=== PATIENT | female | born 1975 | race African-American/Black ===

== ENCOUNTER 2016-08-26 10:31 | Outpatient (CLI) | payer MEDICAID | END 2016-08-26 10:32 | disposition home or self-care (01) | DX: Z20.2 Contact with and (suspected) exposure to infections with a predominantly sexual mode of transmission (principal) ==

== ENCOUNTER 2016-09-17 14:45 | Emergency (ER) | payer MEDICAID ==
[2016-09-17] MEDS ORDERED: KETOROLAC 30 MG/ML VIAL ONE (16:09)
[2016-09-17] MEDS ORDERED: cefTRIAXone 1 GM in SODIUM CHLORIDE 0.9% MINIBAG 100 ML IV STA (20:23)
[2016-09-17] MEDS ORDERED: oxyCOD/ACETAMIN 5 MG/325 MG TABLET PO STA (20:23)
[2016-09-17] MEDS ORDERED: AZITHROMYCIN INJ 500 MG in SODIUM CHLORIDE 0.9% 250 ML IV STA (20:24)
[2016-09-17] MEDS ORDERED: DOXYCYCLINE 100 MG TABLET PO STA (20:25)
[2016-09-17] MEDS ORDERED: cefTRIAXone 1 GM VIAL ONE (20:31)
[2016-09-17] MEDS ORDERED: SODIUM CHLORIDE 0.9% MINIBAG 100 ML IV ONE (20:31)
[2016-09-17] MEDS ORDERED: oxyCOD/ACETAMIN 5 MG/325 MG TABLET PO ONE (20:31)
[2016-09-17] MEDS ORDERED: DOXYCYCLINE 100 MG TABLET PO ONE (20:31)
[2016-09-17] MEDS ORDERED: FLUCONAZOLE 100 MG TABLET PO STA (20:38)
[2016-09-17] MEDS ORDERED: FLUCONAZOLE 100 MG TABLET ONE ×2 (20:42→20:43)
== END 2016-09-17 21:23 | disposition home or self-care (01) ==
DX: N73.9 Female pelvic inflammatory disease, unspecified (principal); B37.3 Candidiasis of vulva and vagina
CPT/HCPCS: 36415; 76830; 76856; 80053; 81001; 81025; 83690; 85025; 87210; 87220; 87491; 87591; 93976; 96365; 99283; 99284; A9270

== ENCOUNTER 2017-10-19 08:00 | Outpatient (CLI) | payer MEDICAID ==
[2017-10-19 13:42] LABS: ALBUMIN 3.8 g/dL (3.2-5.5); ALBUMIN/GLOBULIN RATIO 1.1 (1.0-2.2); ALKALINE PHOSPHATASE 44 IU/L (42-121); ALT ALANINE AMINOTRANSFERASE 12 IU/L (10-60); AST ASPARTATE AMINOTRANSFERASE 17 IU/L (10-42); BILIRUBIN,TOTAL 0.5 mg/dL (0.2-1.0); BUN - BLOOD UREA NITROGEN 9 mg/dL (6-20); CALCIUM 8.7 mg/dL (8.5-10.3); CARBON DIOXIDE - CO2 23 mmol/L (21-32); CHLORIDE 106 mmol/L (101-111); CHOL/HDL RATIO 2.9 (<4.4); CHOLESTEROL 112 mg/dL; CREATININE 0.8 mg/dL (0.4-1.0); GFR - MDRD 96 (>89); GLUCOSE 144 mg/dL (70-100); HDL CHOLESTEROL 38 mg/dL; LDL CHOLESTEROL,CALCULATED 55 mg/dL; LDL/HDL RATIO 1.4 (<4.4); SODIUM 137 mmol/L (135-145); TOTAL PROTEIN 7.2 g/dL (6.7-8.2); VLDL CHOLESTEROL 19 mg/dL
[2017-10-19 13:43] LABS: BASOPHILS % (AUTO) 0.4 %; EOSINOPHILS # (AUTO) 0.2 10^3/uL (0.0-0.7); EOSINOPHILS % (AUTO) 1.8 %; HGB - HEMOGLOBIN 11.6 g/dL (12.0-16.0); LYMPHOCYTES # (AUTO) 2.6 10^3/uL (1.5-3.5); LYMPHOCYTES % (AUTO) 26.1 %; MEAN CORPUSCULAR HEMOGLOBIN 25.1 pg (27.0-31.0); MEAN CORPUSCULAR HGB CONC 32.5 g/dL (32.0-36.0); MEAN CORPUSCULAR VOLUME 77.1 fL (81.0-99.0); MEAN PLATELET VOLUME 9.2 fL (7.9-10.8); MONOCYTES # (AUTO) 0.4 10^3/uL (0.0-1.0); MONOCYTES % (AUTO) 4.5 %; NEUTROPHILS # (AUTO) 6.7 10^3/uL (1.5-6.6); NEUTROPHILS % (AUTO) 67.2 %; PLT - PLATELET COUNT 327 10^3/uL (130-450); RED BLOOD COUNT 4.62 10^6/uL (4.20-5.40); RED CELL DISTRIBUTION WIDTH 15.1 % (12.0-15.0); WHITE BLOOD COUNT 9.9 x10^3/uL (4.8-10.8)
== END 2017-10-19 08:01 | disposition home or self-care (01) ==
LOC: LAB.N 08:00
PROVIDERS: ATTEND Nurse Practitioner Gerontology
DX: Z13.9 Encounter for screening, unspecified (principal)
CPT/HCPCS: 36415; 80053; 80061; 83721; 84443; 85025

== ENCOUNTER 2017-10-27 09:40 | Outpatient (CLI) | payer MEDICAID ==
[2017-10-27 13:07] LABS: BASOPHILS # (AUTO) 0.1 10^3/uL (0.0-0.1); BASOPHILS % (AUTO) 0.5 %; EOSINOPHILS # (AUTO) 0.2 10^3/uL (0.0-0.7); EOSINOPHILS % (AUTO) 1.8 %; HGB - HEMOGLOBIN 11.8 g/dL (12.0-16.0); LYMPHOCYTES # (AUTO) 3.6 10^3/uL (1.5-3.5); LYMPHOCYTES % (AUTO) 35.6 %; MEAN CORPUSCULAR HGB CONC 32.3 g/dL (32.0-36.0); MEAN CORPUSCULAR VOLUME 77.6 fL (81.0-99.0); MEAN PLATELET VOLUME 8.9 fL (7.9-10.8); MONOCYTES # (AUTO) 0.4 10^3/uL (0.0-1.0); MONOCYTES % (AUTO) 4.3 %; NEUTROPHILS # (AUTO) 5.9 10^3/uL (1.5-6.6); NEUTROPHILS % (AUTO) 57.8 %; PLT - PLATELET COUNT 332 10^3/uL (130-450); RED BLOOD COUNT 4.71 10^6/uL (4.20-5.40); RED CELL DISTRIBUTION WIDTH 15.1 % (12.0-15.0); WHITE BLOOD COUNT 10.1 x10^3/uL (4.8-10.8)
[2017-10-27 13:32] LABS: ALBUMIN 3.8 g/dL (3.2-5.5); ALBUMIN/GLOBULIN RATIO 1.1 (1.0-2.2); ALKALINE PHOSPHATASE 43 IU/L (42-121); ALT ALANINE AMINOTRANSFERASE < 10 IU/L (10-60); AST ASPARTATE AMINOTRANSFERASE 15 IU/L (10-42); BILIRUBIN,TOTAL 0.4 mg/dL (0.2-1.0); BUN - BLOOD UREA NITROGEN 8 mg/dL (6-20); CALCIUM 8.6 mg/dL (8.5-10.3); CARBON DIOXIDE - CO2 24 mmol/L (21-32); CHLORIDE 104 mmol/L (101-111); CHOL/HDL RATIO 2.7 (<4.4); CHOLESTEROL 112 mg/dL; CREATININE 0.9 mg/dL (0.4-1.0); GFR - MDRD 84 (>89); GLUCOSE 119 mg/dL (70-100); HDL CHOLESTEROL 41 mg/dL; LDL CHOLESTEROL,CALCULATED 51 mg/dL; LDL/HDL RATIO 1.2 (<4.4); SODIUM 135 mmol/L (135-145); TOTAL PROTEIN 7.2 g/dL (6.7-8.2); VLDL CHOLESTEROL 20 mg/dL
[2017-10-27 13:53] LABS: HB2 TOTAL 12.6 g/dL; HEMOGLOBIN A1C 0.55 g/dL; HEMOGLOBIN A1C % 6.1 % (4.6-6.2)
== END 2017-10-27 09:41 | disposition home or self-care (01) ==
LOC: LAB.N 09:40
PROVIDERS: ATTEND Nurse Practitioner Gerontology
DX: Z13.9 Encounter for screening, unspecified (principal); R73.9 Hyperglycemia, unspecified
CPT/HCPCS: 36415; 80053; 80061; 83036; 83721; 84443; 85025

== ENCOUNTER 2017-11-03 10:22 | Outpatient (CLI) | payer MEDICAID ==
--- NOTE | 2017-11-06 16:08 | Mammography Report ---
DIGITAL SCREENING MAMMOGRAM: 11/03/2017 CLINICAL INDICATION: A 42-year-old, for screening. This is the patient's baseline examination. TECHNIQUE: Routine CC and MLO projections were obtained of the breasts. FINDINGS: The breasts demonstrate scattered fibroglandular densities bilaterally. A few punctate, typically benign calcifications are present. No suspicious masses, clustered microcalcifications, or regions of architectural distortion are identified. IMPRESSION: BENIGN FINDINGS. RECOMMENDATION: ROUTINE ANNUAL SCREENING UNLESS OTHERWISE CLINICALLY INDICATED. BIRADS CATEGORY 2-BENIGN FINDINGS. STANDARD QUALIFYING STATEMENTS: 1. This examination was reviewed with the aid of Computer-Aided Detection (CAD). 2. A negative or benign imaging report should not delay biopsy if clinically suspicious findings are present. Consider surgical consultation if warranted. More than 5% of cancers are not identified by imaging. 3. Dense breasts may obscure an underlying neoplasm. TD: 11/06/2017 16:07
== END 2017-11-03 10:23 | disposition home or self-care (01) ==
LOC: DI.N 10:22
PROVIDERS: ATTEND Nurse Practitioner Gerontology
DX: Z12.39 Encounter for other screening for malignant neoplasm of breast (principal)
CPT/HCPCS: 77067

== ENCOUNTER 2018-03-20 08:00 | Outpatient (CLI) | payer MEDICAID ==
[2018-03-20 12:49] LABS: BASOPHILS % (AUTO) 0.3 %; EOSINOPHILS # (AUTO) 0.1 10^3/uL (0.0-0.7); EOSINOPHILS % (AUTO) 0.9 %; LYMPHOCYTES # (AUTO) 3.4 10^3/uL (1.5-3.5); LYMPHOCYTES % (AUTO) 28.9 %; MEAN CORPUSCULAR HEMOGLOBIN 25.5 pg (27.0-31.0); MEAN CORPUSCULAR VOLUME 79.7 fL (81.0-99.0); MONOCYTES # (AUTO) 0.5 10^3/uL (0.0-1.0); MONOCYTES % (AUTO) 4.6 %; NEUTROPHILS # (AUTO) 7.6 10^3/uL (1.5-6.6); NEUTROPHILS % (AUTO) 65.3 %; PLT - PLATELET COUNT 341 10^3/uL (130-450); RED BLOOD COUNT 4.69 10^6/uL (4.20-5.40); RED CELL DISTRIBUTION WIDTH 14.7 % (12.0-15.0); WHITE BLOOD COUNT 11.7 x10^3/uL (4.8-10.8)
== END 2018-03-20 08:01 | disposition home or self-care (01) ==
LOC: LAB.N 08:00
PROVIDERS: ATTEND Nurse Practitioner Gerontology
DX: N92.5 Other specified irregular menstruation (principal)
CPT/HCPCS: 36415; 85025

== ENCOUNTER 2018-05-04 18:55 | Outpatient (CLI) | payer MEDICAID ==
[2018-05-04 13:36] LABS: BASOPHILS % (AUTO) 0.4 %; EOSINOPHILS # (AUTO) 0.1 10^3/uL (0.0-0.7); EOSINOPHILS % (AUTO) 0.9 %; HGB - HEMOGLOBIN 12.2 g/dL (12.0-16.0); LYMPHOCYTES # (AUTO) 3.2 10^3/uL (1.5-3.5); LYMPHOCYTES % (AUTO) 31.7 %; MEAN CORPUSCULAR HEMOGLOBIN 25.8 pg (27.0-31.0); MEAN CORPUSCULAR HGB CONC 32.7 g/dL (32.0-36.0); MEAN CORPUSCULAR VOLUME 78.9 fL (81.0-99.0); MEAN PLATELET VOLUME 8.6 fL (7.9-10.8); MONOCYTES # (AUTO) 0.3 10^3/uL (0.0-1.0); MONOCYTES % (AUTO) 3.4 %; NEUTROPHILS # (AUTO) 6.4 10^3/uL (1.5-6.6); NEUTROPHILS % (AUTO) 63.6 %; PLT - PLATELET COUNT 349 10^3/uL (130-450); RED BLOOD COUNT 4.73 10^6/uL (4.20-5.40); RED CELL DISTRIBUTION WIDTH 15.1 % (12.0-15.0)
--- NOTE | 2018-05-04 23:07 | Ultrasound Report ---
Reason: GENERALIZED INTRA ABD AND PELVIC SWELLING,MASS AND Procedure Date: 05/04/2018 Accession Number: [id number] / [id number] Procedure: US - Pelvic w/Transvaginal CPT Code: FULL RESULT: EXAM: PELVIC ULTRASOUND EXAM DATE: 05/04/2018 08:51 PM. CLINICAL HISTORY: Generalized intra-abdominal and pelvic swelling, mass. COMPARISON: None. TECHNIQUE: Realtime transabdominal pelvic scan performed to identify the uterus and adnexa and as an overview of other pelvic structures, followed by transvaginal scan to provide greater detail of the uterus and adnexa, with static image documentation. FINDINGS: Uterus: 12.7 x 6.5 x 4.6 cm, volume 197.5 cc. Anteverted position. Normal overall size and echotexture. Masses: None. Endometrium: 10 mm. Normal. Cervix: Unremarkable. Right Ovary: 3.4 x 1.8 x 1.9 cm, volume 6.04 cc. Normal echotexture and blood flow. Left Ovary: 2.9 x 2 x 1.4 cm, volume 4.22 cc. Normal echotexture and blood flow. Free Fluid: Small volume of pelvic fluid considered physiologic. Other: None. IMPRESSION: Normal pelvic ultrasound. RADIA
== END 2018-05-04 18:56 | disposition home or self-care (01) ==
LOC: DI 18:55
PROVIDERS: ATTEND Obstetrics & Gynecology
DX: R19.07 Generalized intra-abdominal and pelvic swelling, mass and lump (principal); N92.0 Excessive and frequent menstruation with regular cycle; D64.9 Anemia, unspecified
CPT/HCPCS: 36415; 76830; 76856; 84443; 85025

== ENCOUNTER 2018-05-08 17:35 | Outpatient (CLI) | payer MEDICAID | END 2018-05-08 17:36 | disposition home or self-care (01) | LOC: LAB.R 17:35 | PROVIDERS: ATTEND Obstetrics & Gynecology | DX: N71.0 Acute inflammatory disease of uterus (principal) | CPT/HCPCS: 87480; 87510; 87660 ==

== ENCOUNTER 2018-07-20 08:00 | Outpatient (CLI) | payer MEDICAID ==
[2018-07-21 10:56] LABS: HEPATITIS C ANTIBODY NON-REACTIVE (NON-REACTIVE)
[2018-07-23 09:12] LABS: HIV AG/AB 4TH GEN NON-REACTIVE (NON-REACTIVE)
[2018-07-24 13:17] LABS: HSV 1 IGG TYPE SPECIFIC AB 20.8 index; HSV 2 IGG TYPE SPECIFIC AB 13.5 index
== END 2018-07-20 23:59 | disposition home or self-care (01) ==
LOC: LAB.N 08:00
PROVIDERS: ATTEND Nurse Practitioner
DX: Z72.51 High risk heterosexual behavior (principal); R30.0 Dysuria; R31.9 Hematuria, unspecified
CPT/HCPCS: 36415; 81599; 86592; 86695; 86696; 86803; 87086; 87389; 87491; 87591

== ENCOUNTER 2018-08-10 11:57 | Outpatient (CLI) | payer MEDICAID ==
[2018-08-10 17:19] LABS: BASOPHILS % (AUTO) 0.5 %; EOSINOPHILS # (AUTO) 0.1 10^3/uL (0.0-0.7); EOSINOPHILS % (AUTO) 1.2 %; HGB - HEMOGLOBIN 12.6 g/dL (12.0-16.0); LYMPHOCYTES # (AUTO) 2.7 10^3/uL (1.5-3.5); LYMPHOCYTES % (AUTO) 29.4 %; MEAN CORPUSCULAR HEMOGLOBIN 25.7 pg (27.0-31.0); MEAN CORPUSCULAR HGB CONC 31.8 g/dL (32.0-36.0); MEAN CORPUSCULAR VOLUME 80.8 fL (81.0-99.0); MEAN PLATELET VOLUME 9.1 fL (7.9-10.8); MONOCYTES # (AUTO) 0.5 10^3/uL (0.0-1.0); MONOCYTES % (AUTO) 4.9 %; NEUTROPHILS # (AUTO) 5.9 10^3/uL (1.5-6.6); PLT - PLATELET COUNT 334 10^3/uL (130-450); RED CELL DISTRIBUTION WIDTH 14.3 % (12.0-15.0); WHITE BLOOD COUNT 9.2 x10^3/uL (4.8-10.8)
[2018-08-10 17:27] LABS: ALBUMIN 3.7 g/dL (3.2-5.5); BILIRUBIN,TOTAL 0.5 mg/dL (0.2-1.0); CALCIUM 8.7 mg/dL (8.5-10.3); CREATININE 0.8 mg/dL (0.4-1.0); TOTAL PROTEIN 7.4 g/dL (6.7-8.2)
[2018-08-10 17:49] LABS: HB2 TOTAL 13.2 g/dL; HEMOGLOBIN A1C 0.62 g/dL; HEMOGLOBIN A1C % 6.4 % (4.6-6.2)
== END 2018-08-10 23:59 | disposition home or self-care (01) ==
LOC: LAB.N 11:57
PROVIDERS: ATTEND Nurse Practitioner Gerontology
DX: I10 Essential (primary) hypertension (principal); Z13.9 Encounter for screening, unspecified; R89.9 Unspecified abnormal finding in specimens from other organs, systems and tissues; R73.9 Hyperglycemia, unspecified
CPT/HCPCS: 36415; 80053; 83036; 85025

== ENCOUNTER 2018-11-15 08:00 | Outpatient (CLI) | payer MEDICAID ==
[2018-11-15 13:41] LABS: HB2 TOTAL 12.6 g/dL; HEMOGLOBIN A1C 0.62 g/dL; HEMOGLOBIN A1C % 6.7 % (4.6-6.2)
== END 2018-11-15 23:59 | disposition home or self-care (01) ==
LOC: LAB.N 08:00
PROVIDERS: ATTEND Nurse Practitioner Gerontology
DX: E11.9 Type 2 diabetes mellitus without complications (principal)
CPT/HCPCS: 36415; 83036

== ENCOUNTER 2019-01-17 17:36 | Emergency (ER) | payer MEDICAID ==
[2019-01-17] MEDS ORDERED: IPRATROPIUM/ALBUTEROL 3 ML NEB INH STA (19:30)
--- NOTE | 2019-01-17 20:06 | ED Physician Documentation ---
History of Present Illness - Stated complaint Stated Complaint: SOA/ASHTMA - Chief complaint Chief Complaint: Resp - History obtained from History obtained from: Patient - Additonal information Additional information: Patient is a 43-year-old female with history of asthma presenting with concern for chest tightness and difficulty breathing over the past several days. Patient saw her primary care physician yesterday and was prescribed nebulizers, inhalers, and steroids, which she has been taking compliantly. Patient reports he general chest congestion, dry cough, wheezing, and tightness in her chest. Patient denies fever, nasal congestion or other URI symptoms, leg pain or swelling.No other improving or worsening factors noted. Review of Systems Constitutional: denies: Fever Respiratory: reports: Dyspnea, Cough PD PAST MEDICAL HISTORY - Past Medical History Past Medical History: Yes Respiratory: Asthma Endocrine/Autoimmune: Type 2 diabetes - Past Surgical History Past Surgical History: No - Present Medications Home Medications: Ambulatory Orders Medication Instructions Recorded Confirmed Albuterol [Ventolin Hfa] 2 puffs INH Q4H PRN 07/03/13 01/17/19 RX: predniSONE [Deltasone] 60 mg PO DAILY 5 Days tablet 11/12/14 01/17/19 - Allergies Allergies/Adverse Reactions: Allergies Allergy/AdvReac Type Severity Reaction Status Date / Time No Known Drug Allergies Allergy Verified 01/17/19 17:53 - Social History Does the pt smoke?: No Smoking Status: Never smoker Does the pt drink ETOH?: Yes Does the pt have substance abuse?: No - Immunizations Immunizations are current?: Yes - POLST Patient has POLST: No PD ED PE NORMAL - Vitals Vital signs reviewed: Yes - General General: Alert and oriented X 3, No acute distress, Well developed/nourished, Other (Speaking in full sentences) - HEENT HEENT: Atraumatic, Moist mucous membranes - Cardiac Cardiac: RRR, No murmur - Respiratory Respiratory: No respiratory distress, Clear bilaterally - Abdomen Abdomen: Normal bowel sounds, Soft, Non tender, Non distended - Derm Derm: Normal color, Warm and dry, No rash - Extremities Extremities: No deformity, No tenderness to palpate, No edema, No calf tenderness / cord - Neuro Neuro: Alert and oriented X 3, No motor deficit, No sensory deficit - Psych Psych: Normal mood, Normal affect Results - Vitals Vitals: Vital Signs - 24 hr 01/17/19 01/17/19 01/17/19 17:45 19:45 20:41 Temperature 36.7 C 36.4 C L Heart Rate 87 89 92 Respiratory 18 24 20 Rate Blood Pressure 142/77 H 146/105 H O2 Saturation 100 99 01/17/19 20:55 Temperature 37.0 C Heart Rate 90 Respiratory 12 Rate Blood Pressure 147/82 H O2 Saturation 99 Oxygen O2 Source Room air - EKG (time done) 2037 Rate: Rate (enter#) (89) Intervals: Prolonged [place] Ischemia: ST elevation c/w repol PD MEDICAL DECISION MAKING - ED course Complexity details: reviewed results, considered differential, d/w patient ED course: Most concerning for asthma flare given patient's history of such, symptoms, and physical exam findings. Patient has Miguel seen a physician and been prescribed appropriate medications including nebulizers, inhalers, and steroids. Do not find evidence to indicate other complications but considered pneumonia, ACS, current infarction, unstable angina, PE, GERD, esophageal spasm, anxiety, but feel less likely. EKG obtained which not show evidence of ischemia. Also discussed obtaining chest x-ray to further evaluate for possible pneumonia or other complications, but patient declined. Patient received DuoNeb in ED with improvement of symptoms. Do not feel she requires other medications or invasive testing at this time. Feel that she is safe to discharge home and has all medications available to her there. Discussed strict return precautions and appropriate follow-up. Patient voiced understanding and is comfortable with discharge plan. Departure - Departure Disposition: 01 Home, Self Care Clinical Impression: Asthma Condition: Good Instructions: ED Reactive Airway Disease, ED Bronchitis Asthmatic Follow-Up: Christen Cloud ARNP [Primary Care Provider] - Within 3 Days Comments: Please continue to use all home medications as previously instructed including nebulizers, inhalers, and steroids. For discomfort, recommend ibuprofen or Tylenol. Please follow-up with your primary care physician in the next 2 to 3 days and return to ED sooner if experience worsening symptoms or other concerns. Discharge Date/Time: 01/17/19 21:03
[2019-01-17 20:56] VITALS: BP 147/82
== END 2019-01-17 21:03 | disposition home or self-care (01) ==
LOC: ED 17:36
DX: J45.909 Unspecified asthma, uncomplicated (principal); I44.0 Atrioventricular block, first degree; E11.9 Type 2 diabetes mellitus without complications
CPT/HCPCS: 93005; 94640; 94664; 99283

== ENCOUNTER 2019-03-04 08:00 | Outpatient (CLI) | payer MEDICAID ==
[2019-03-04 18:46] LABS: BASOPHILS # (AUTO) 0.1 10^3/uL (0.0-0.1); BASOPHILS % (AUTO) 0.4 %; EOSINOPHILS # (AUTO) 0.2 10^3/uL (0.0-0.7); EOSINOPHILS % (AUTO) 1.4 %; HGB - HEMOGLOBIN 11.6 g/dL (12.0-16.0); LYMPHOCYTES # (AUTO) 3.6 10^3/uL (1.5-3.5); LYMPHOCYTES % (AUTO) 28.8 %; MEAN CORPUSCULAR HEMOGLOBIN 25.3 pg (27.0-31.0); MEAN CORPUSCULAR HGB CONC 31.6 g/dL (32.0-36.0); MEAN CORPUSCULAR VOLUME 80.1 fL (81.0-99.0); MONOCYTES # (AUTO) 0.6 10^3/uL (0.0-1.0); MONOCYTES % (AUTO) 4.5 %; NEUTROPHILS # (AUTO) 8.1 10^3/uL (1.5-6.6); NEUTROPHILS % (AUTO) 63.9 %; PLT - PLATELET COUNT 372 10^3/uL (130-450); RED BLOOD COUNT 4.58 10^6/uL (4.20-5.40); RED CELL DISTRIBUTION WIDTH 14.5 % (12.0-15.0); WHITE BLOOD COUNT 12.6 x10^3/uL (4.8-10.8)
== END 2019-03-04 23:59 | disposition home or self-care (01) ==
LOC: LAB.N 08:00
PROVIDERS: ATTEND Nurse Practitioner Gerontology
DX: D64.9 Anemia, unspecified (principal)
CPT/HCPCS: 36415; 85025

== ENCOUNTER 2019-11-01 08:27 | Outpatient (CLI) | payer MEDICAID ==
[2019-11-01 12:26] LABS: BASOPHILS # (AUTO) 0.1 10^3/uL (0.0-0.1); BASOPHILS % (AUTO) 0.4 %; EOSINOPHILS # (AUTO) 0.2 10^3/uL (0.0-0.7); EOSINOPHILS % (AUTO) 1.9 %; HGB - HEMOGLOBIN 11.4 g/dL (12.0-16.0); LYMPHOCYTES # (AUTO) 3.3 10^3/uL (1.5-3.5); LYMPHOCYTES % (AUTO) 27.6 %; MEAN CORPUSCULAR HGB CONC 31.1 g/dL (32.0-36.0); MEAN CORPUSCULAR VOLUME 80.5 fL (81.0-99.0); MEAN PLATELET VOLUME 10.9 fL (7.9-10.8); MONOCYTES # (AUTO) 0.5 10^3/uL (0.0-1.0); MONOCYTES % (AUTO) 4.5 %; NEUTROPHILS # (AUTO) 7.7 10^3/uL (1.5-6.6); PLT - PLATELET COUNT 402 10^3/uL (130-450); RED BLOOD COUNT 4.56 10^6/uL (4.20-5.40); RED CELL DISTRIBUTION WIDTH 15.1 % (12.0-15.0); WHITE BLOOD COUNT 11.8 x10^3/uL (4.8-10.8)
[2019-11-01 12:49] LABS: ALBUMIN 3.7 g/dL (3.2-5.5); BILIRUBIN,TOTAL 0.3 mg/dL (0.2-1.0); CALCIUM 8.7 mg/dL (8.5-10.3); CREATININE 0.7 mg/dL (0.4-1.0); TOTAL PROTEIN 7.4 g/dL (6.7-8.2)
[2019-11-01 13:17] LABS: HB2 TOTAL 11.7 g/dL; HEMOGLOBIN A1C 0.67 g/dL; HEMOGLOBIN A1C % 7.4 % (4.6-6.2)
== END 2019-11-01 23:59 | disposition home or self-care (01) ==
LOC: LAB.N 08:27
PROVIDERS: ATTEND Nurse Practitioner Gerontology
DX: D64.9 Anemia, unspecified (principal); E11.9 Type 2 diabetes mellitus without complications
CPT/HCPCS: 36415; 80053; 83036; 85025

== ENCOUNTER 2019-12-23 14:03 | Outpatient (CLI) | payer MEDICAID ==
--- NOTE | 2019-12-23 19:29 | Ultrasound Report ---
Reason: DUB/HEAVY MENTRUATION Procedure Date: 12/23/2019 Accession Number: [id number] / [id number] Procedure: US - Pelvic w/Transvaginal CPT Code: Final Report FULL RESULT: EXAM: PELVIC ULTRASOUND EXAM DATE: 12/23/2019 02:50 PM. CLINICAL HISTORY: Dysfunctional uterine bleeding, heavy menstruation. COMPARISON: PELVIC W/TRANSVAGINAL 05/04/2018 8:12 PM. TECHNIQUE: Realtime transabdominal pelvic scan performed to identify the uterus and adnexa and as an overview of other pelvic structures, followed by transvaginal scan to provide greater detail of the uterus and adnexa, with static image documentation. FINDINGS: Uterus: 10.1 x 6.3 x 5.5 cm, volume 186 cc. Anteverted position. Normal overall size and echotexture. Masses: Anterior intramural poorly defined fibroid 2.7 x 3.0 x 3.3 cm. Endometrium: 7 mm. Normal. Cervix: Unremarkable. Right Ovary: 3.6 x 1.7 x 3.3 cm, volume 10.4 cc. Normal echotexture and blood flow. Left Ovary: 2.9 x 1.2 x 2.5 cm, volume 4.4 cc. Normal echotexture and blood flow. Free Fluid: None. Other: None. IMPRESSION: 1. No endometrial mass or thickening. 2. 3.3 cm intramural fibroid. RADIA
== END 2019-12-23 14:04 | disposition home or self-care (01) ==
LOC: DI 14:03
PROVIDERS: ATTEND Obstetrics & Gynecology
DX: D25.1 Intramural leiomyoma of uterus (principal)
CPT/HCPCS: 76830; 76856

== ENCOUNTER 2020-02-17 09:07 | Outpatient (CLI) | payer MEDICAID ==
[2020-02-17 10:48] LABS: BASOPHILS # (AUTO) 0.1 10^3/uL (0.0-0.1); BASOPHILS % (AUTO) 0.4 %; EOSINOPHILS # (AUTO) 0.3 10^3/uL (0.0-0.7); EOSINOPHILS % (AUTO) 2.2 %; HGB - HEMOGLOBIN 11.4 g/dL (12.0-16.0); LYMPHOCYTES % (AUTO) 34.4 %; MEAN CORPUSCULAR HGB CONC 31.2 g/dL (32.0-36.0); MEAN PLATELET VOLUME 10.9 fL (7.9-10.8); MONOCYTES # (AUTO) 0.7 10^3/uL (0.0-1.0); MONOCYTES % (AUTO) 5.7 %; NEUTROPHILS # (AUTO) 6.6 10^3/uL (1.5-6.6); NEUTROPHILS % (AUTO) 56.8 %; PLT - PLATELET COUNT 393 10^3/uL (130-450); RED BLOOD COUNT 4.56 10^6/uL (4.20-5.40); RED CELL DISTRIBUTION WIDTH 15.4 % (12.0-15.0); WHITE BLOOD COUNT 11.7 x10^3/uL (4.8-10.8)
== END 2020-02-17 09:08 | disposition home or self-care (01) ==
LOC: LAB 09:07
PROVIDERS: ATTEND Obstetrics & Gynecology
DX: Z01.812 Encounter for preprocedural laboratory examination (principal); N92.0 Excessive and frequent menstruation with regular cycle; N93.8 Other specified abnormal uterine and vaginal bleeding; Z20.828 Contact with and (suspected) exposure to other viral communicable diseases
CPT/HCPCS: 81599; 85025

== ENCOUNTER 2020-02-19 07:31 | Day surgery (SDC) | payer MEDICAID ==
[~2020-02-19 07:31] MED LIST: ACETAMINOPHEN 1,000 MG/100 ML 100 ML IV ONE; CELECOXIB 100 MG CAPSULE PO ONE; GABAPENTIN 400 MG CAPSULE ONE
[2020-02-19 07:54] LABS: HCG UR QUAL NEGATIVE
[2020-02-19] MEDS ORDERED: LACTATED RINGERS 1,000 ML IV ONE ×2 (08:02→10:42)
--- NOTE | 2020-02-19 08:11 | ANESTHESIA ---
Pre-Anesthesia VS, & Labs - Diagnosis dysfunctional uterine bleeding - Procedure hysteroscopy, d and c, IUD placement Vital Signs: Temp Pulse Resp BP Pulse Ox 36.4 C L 76 16 143/94 H 100 02/19/20 07:49 02/19/20 07:49 02/19/20 07:49 02/19/20 07:49 02/19/20 07:49 Height 5 ft 1 in Weight (kg) 92.4 kg Body Mass Index 37.6 - NPO >8 hours - Is Patient ?: No - Lab Results Current Lab Results: Laboratory Tests 02/19/20 07:56: POC Whole Bld Glucose 166 H Home Medications and Allergies Home Medications: Ambulatory Orders Lisinopril [Zestril] 10 mg PO DAILY 02/17/20 Metformin HCl 1,000 mg PO BID 02/17/20 Albuterol [Ventolin Hfa] 2 puffs INH Q4H PRN 07/03/13 Lisinopril [Zestril] 10 mg PO DAILY 02/17/20 Metformin HCl 1,000 mg PO BID 02/17/20 Allergies/Adverse Reactions: Allergies Allergy/AdvReac Type Severity Reaction Status Date / Time No Known Drug Allergies Allergy Verified 01/17/19 17:53 Anes History & Medical History - Anesthetic History Anesthesia Complications: reports: No previous complications, Slow wake-up - Medical History Cardiovascular: reports: Hypertension Pulmonary: reports: Asthma Gastrointestinal: reports: GERD Urinary: reports: None Musculoskeletal: reports: None Endocrine/Autoimmune: reports: Type 2 diabetes Skin: reports: Eczema Smoking Status: Never smoker - Surgical History Gynecologic: Tubal ligation Exam General: Alert Dental: WNL Mouth Opening: Greater than 4 Fingerbreadths Neck Mobility: Normal Mallampati classification: I Respiratory: Lungs clear Cardiovascular: Regular rate Mental/Cognitive Status: Alert/Oriented X3 Plan Anesthesia Type: General Consent for Procedure(s) Verified and Reviewed: Yes Code Status: Attempt Resuscitation ASA classification: 2-Mild systemic disease Is this case an emergency?: No
[2020-02-19] MEDS ORDERED: LIDOCAINE 1%-EPI 1:100000 20 ML MDV ONE (08:53)
[2020-02-19] MEDS ORDERED: LEVONORGESTREL 20 MCG/24H IUD IY ONE ×2 (08:57→09:51)
[2020-02-19] MEDS ORDERED: SILVER NITRATE APPLICATOR TOP ONE (09:51)
[2020-02-19] MEDS ORDERED: LIDOCAINE 1%-EPI 1:100000 20 ML MDV SUBQ ONE (09:52)
--- NOTE | 2020-02-19 10:12 | HISTORY & PHYSICAL EXAMINATION ---
HPI - History of Present Illness HPI Comment/Other: Patient is a 44-year-old G6, P4 Last seen on 12/16/2019 for dysfunctional uterine bleeding. Please see prior clinic notes for details of bleeding history. She has tried norethindrone which only served to lengthen her episodes of bleeding. She was interested in an endometrial ablation. We discussed various risk factors and determined that she had a poor risk profile for endometrial ablation. She underwent a pelvic ultrasound which showed a poorly defined intramural fibroid. She wants to discuss next steps. At her prior visit we started medroxyprogesterone. She found that it spiked her blood sugar and she felt terrible. 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 She had 9 days of flow followed with an additional 15 to 16 days of flow. She is due for her mammogram. Her last Pap smear was 10/19/2017 and was within normal limits. Allergies: No Known Allergies Medications: TRUE METRIX BLOOD GLUCOSE TEST IN VITRO STRIP (GLUCOSE BLOOD) Check blood sugars 4 times a day; Route: IN VITRO TRUE METRIX GO GLUCOSE METER W/DEVICE KIT (BLOOD GLUCOSE MONITORING SUPPL) Check blood sugars 4 times a day LISINOPRIL 10 MG ORAL TABLET (LISINOPRIL) Take one tablet by mouth daily; Route: ORAL FLOVENT HFA 44 MCG/ACT INHALATION AEROSOL (FLUTICASONE PROPIONATE HFA) Inhale two actuations twice daily; Route: INHALATION PROAIR HFA 108 (90 BASE) MCG/ACT INHALATION AEROSOL SOLUTION (ALBUTEROL SULFATE) 2 puffs orally up to every 4 hrs as needed for wheezing; Route: INHALATION METFORMIN HCL 1000 MG ORAL TABLET (METFORMIN HCL) Take one tablet by mouth twice daily for diabetes; Route: ORAL TRIAMCINOLONE ACETONIDE 0.1 % EXTERNAL CREAM (TRIAMCINOLONE ACETONIDE) Apply sparingly to affected areas twice daily; Route: EXTERNAL Problems: Review of test results (ICD-V68.89) (WFJ19-O09.89) Elevated blood pressure (ICD-796.2) (FYO14-M93.0) Mammographic screening for breast cancer (ICD-V76.12) (ZAK69-A28.31) DUB (ICD-626.8) (OSW58-Y92.8) Headaches (ICD-784.0) (APD58-X48) Heavy menstruation (ICD-626.2) (YYK21-Z45.0) Foot anomaly (ICD-755.67) (ZHK77-A09.89) Anemia (ICD-285.9) (TMD17-N00.9) Asthma, chronic (ICD-493.90) (PKI20-T55.998) Asthma exacerbation (ICD-493.92) (PHT61-G00.901) Cough (ICD-786.2) (CBX96-Z90) Abdominal pain, lower (ICD-789.09) (PVA16-Y18.30) Viral illness, acute (ICD-079.99) (JPU68-C34.9) Shingles (ICD-053.9) (NZV95-X93.9) Diabetes mellitus, type 2 (ICD-250.00) (JFB88-N06.9) Rash (ICD-782.1) (LLD20-I27) Fever of unknown origin (ICD-780.60) (KOU01-N46.9) Hypertension (ICD-401.9) (RMH18-P76) Health screening (ICD-V70.0) (YZL44-V96.9) UTI, acute (ICD-599.0) (PEM60-Z76.0) Hematuria (ICD-599.70) (BBJ17-Z03.9) Mammographic screening for breast cancer (ICD-V76.12) (NRJ64-C47.31) Upper respiratory tract infection (ICD-465.9) (AZB54-E57.9) Abnormal labs (ICD-790.99) (EGS75-M16.9) Other specified irregular menstruation (CLN13-H33.5) Encounter for gynecological examination (general) (routine) with abnormal findings (ICD-V72.31) (CRV54-Z86.411) Elevated blood glucose (ICD-790.29) (HJH75-A24.9) Screening for cervical cancer (ICD-V76.2) (HWG08-Z68.4) Dizziness (ICD-780.4) (TWZ84-N90) Health screening (ICD-V70.0) (AZC49-F83.9) Bacterial vaginosis (ICD-616.10) (FXP79-S75.0) Vaginal bleeding, abnormal (ICD-626.9) (GLX82-E25.9) Exposure to STD (ICD-V01.6) (EBD06-K97.2) Risk Factors: Smoked Tobacco Use: Never smoker Smokeless Tobacco Use: Never Passive Smoke Exposure: no HIV High Risk Behavior: no Caffeine Use: 0 drinks per day Exercise: yes Times/wk: 3 Type of Exercise: walking Seatbelt Use: 100 % Sun Exposure: occasionally Alcohol Use: no Drug Use: no Vital Signs: Patient Profile: 44 Years Old Female Height: 62 inches Weight: 205 pounds BMI: 37.63 BP sittin / 81 Cuff size: regular Vitals Entered By: PRIYA Quintero (January 09, 2020 2:34 PM) Meds Reviewed: Done Allergies Reviewed: Done No known allergies: T Past Medical History: Diabetes BMI 38 Asthma heavy abnormal menses Past Surgical History: Tubal ligation 2007 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 Physical Constitutional: GEN: NAD HEAD: NCAT EYES: No scleral icterus or conjunctival injection NECK: No cervical LAD or TM CV: RRR RESP: CTAB, normal effort ABD: S&NT/ND PSYCH: appropriate affect NEURO: alert and oriented, normal gait and coordination EXT: WWP Impression & Recommendations: Problem # 1: DUB (ICD-626.8) (ILP59-R51.8) Patient is a 44-year-old here for follow-up of dysfunctional uterine bleeding. Patient has not tolerated medical management with norethindrone or medroxyprogesterone. We have previously discussed the possibility of endometrial ablation but given her Elevated BMI, hypertension, and diabetes, she is a poor candidate for endometrial ablation given her underlying risk of endometrial hyperplasia. We discussed the possibility of definitive management with hysterectomy. She does not feel that she is ready for a major surgical procedure at this time. We will proceed with hysteroscopy, D&C and possible myomectomy/polypectomy with Mirena IUD insertion. Reviewed risks/benefits/alternatives to hysteroscopy/polpectomy nad IUD insertion Risks include, but are not limited to, bleeding, infection, damage to neatby tissue and organs. On average, expected EBL is minimal. In the event of an unanticipated blood loss, patient is willing to undergo transfusion. Risks of blood transfusion include infection as well as transfusion reaction Risk of HIV 1/2million nationwide Risk of Hepatitis 1/1 million Risks of transfusion reaction and mgt reviewed Infection risk low given that no incisions maykel be made and we will be using physiologic orifices. Will provide IV abx in the event of uterine perforation. Damage to nearby tissue and organs was reviewed with emphasis on uterine perforation and management, which can include surgical intervention based on bleeding risk. Reviewed management of complications and efforts to avoid such outcomes but reviewed that they may occur despite our best efforts. Patient is undergone bilateral tubal ligation, so risks of ectopic are less of a concern.Uterine perforation and persistent dysfunctional uterine and/or nuisance bleeding after placement persist as risks. Written informed consent was obtained and OR request was submitted. This visit lasted at least 25 minutes with greater than 50% of the This visit lasted at least 25 minutes with greater than 50% of the time devoted to face to face case management discussion between the provider and the natividad PMH/PSH - Past Medical History Cardiovascular: positive: Hypertension Respiratory: positive: Asthma Endocrine/Autoimmune: positive: Type 2 diabetes GI: positive: GERD : positive: None HEENT: positive: None Psych: positive: Panic attacks, Post traumatic stress disorder, Claustrophobia Musculoskeletal: positive: None Derm: positive: Eczema MRSA Hx?: No - Past Surgical History /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: Tubal ligation Social & Family Hx - Social History Does the pt smoke?: No Smoking Status: Never smoker Does the pt drink ETOH?: Yes Does the pt have substance abuse?: No Substance Use and Type: Marijuana - POLST Patient has POLST: No Meds/Allgy - Home Medications Home Medications: Ambulatory Orders Medication Instructions Recorded Confirmed Albuterol [Ventolin Hfa] 2 puffs INH Q4H PRN 07/03/13 02/19/20 Lisinopril [Zestril] 10 mg PO DAILY 02/17/20 02/19/20 Metformin HCl 1,000 mg PO BID 02/17/20 02/19/20 - Allergies Allergies/Adverse Reactions: Allergies Allergy/AdvReac Type Severity Reaction Status Date / Time No Known Drug Allergies Allergy Verified 01/17/19 17:53 Exam - Vital Signs Vital Signs: Vital Signs x48h Temp Pulse Resp BP Pulse Ox 02/19/20 07:49 97.5 F L 76 16 143/94 H 100 Results - Lab Results Other Lab Results: Lab Results x24hrs 02/19/20 02/19/20 Range/Units 07:56 07:42 POC Whole Bld Glucose 166 H (70 - 100) mg/dL Ur Specific [place] 1.010 (1.002-1.030) Urine HCG, Qual NEGATIVE
--- NOTE | 2020-02-19 10:16 | OPERATIVE REPORT ---
Operative Report - General Procedure Date: 02/19/20 Planned Procedure: Hysteroscopy D&C, possible polypectomy/myomectomy and Mirena IUD placement Pre-Op Diagnosis: Dysfunctional uterine bleeding Procedure Performed: Hysteroscopy D&C and Mirena IUD placement Mirena LOT # [id number] Post Op Diagnosis: same - Procedure Note Primary Surgeon: Jazmín Keita MD Anesthesia Provider: Harry Edmond CRNA Anesthesia Technique: General ET tube Pathology: uterine contents IV Fluids (mL): 450 Estimated Blood Loss (mL): 5 Urine Output (mL): 100 Indications: Patient is a 44-year-old here for follow-up of dysfunctional uterine bleeding. Patient has not tolerated medical management with norethindrone or medroxyprogesterone. We have previously discussed the possibility of endometrial ablation but given her Elevated BMI, hypertension, and diabetes, she is a poor candidate for endometrial ablation given her underlying risk of endometrial hyperplasia. We discussed the possibility of definitive management with hysterectomy. She does not feel that she is ready for a major surgical procedure at this time. We will proceed with hysteroscopy, D&C and possible myomectomy/polypectomy with Mirena IUD insertion. Findings: Thickened, fluffy endometrium. No structural abnormalities. Bilateral tubal ostia visualized. Complications: None - Other Other Information/Narrative: Risks benefits and alternatives to the procedure were reviewed. Consent was again confirmed. Patient was taken to the operating room where she underwent general anesthesia. She was positioned in dorsolithotomy position with legs resting in yellowfin stirrups. She was prepped and draped in the usual sterile fashion. Preoperative antibiotics were not indicated. Preoperative checklist was performed. Exam under anesthesia was performed. Speculum was placed in the vagina and the cervix was visualized. Single-tooth tenaculum was placed at the anterior cervical lip. Paracervical block was administered using a total of 20 cc of 1% lidocaine with epinephrine was injected at the 4:00 and 8:00 positions lateral to the portio of the cervix. The cervical os was already dilated adequately to accommodate the caliber of the diagnostic hysteroscope. Uterus sounded to 9 cm. The hysteroscope was inserted and findings were noted as above. Hysteroscope was removed. Sharp curettage D&C was performed with sharp curettage. Hysteroscope was reinserted and endometrial surfaces had been cleared of thickened endometrium. Mirena IUD was inserted according to package directions. Strings were trimmed to approximately 3 cm. All instruments were removed from the uterus. Tenaculum was removed. Tenaculum sites were noted to be hemostatic. All instruments were removed from the vagina. Procedure was well-tolerated without complication. Fluid deficit:45 cc NS
[2020-02-19] MEDS: HYDROmorphone 1 MG/ML CARPUJECT ONE ×2 (10:32→11:18)
[2020-02-19] MEDS ORDERED: DEXAMETHASONE 4 MG/ML VIAL ONE (10:37)
[2020-02-19] MEDS ORDERED: diphenhydrAMINE INJ 50 MG/ML VIAL ONE (10:38)
[2020-02-19] MEDS ORDERED: RACEPINEPHRINE 2.25% NEB INH ONE (10:41)
[2020-02-19] MEDS ORDERED: ALBUTEROL NEB 2.5 MG/3 ML INH ONE ×2 (10:41→10:48)
[2020-02-19] MEDS ORDERED: DEXAMETHASONE 4 MG/ML VIAL IVP ONE (10:47)
--- NOTE | 2020-02-19 10:57 | CONSULTATION NOTE ---
Consultation Report: I was called to PACU as patient complaining of SOB, O2 sat 100% on 2l. Patient became increasingly anxious with some stridor and coughing. To 10l simple face mask, Benadryl, decadron, and albuterol neb given (patient has mild athsma). Lungs clear, inspiratory stridor only, no tounge lip swelling, complaints of sore throat, dry throat and feeling like throat closing. Patient very anxious and reassured. Improvement in 5 minutes, at bedside and made aware.
[2020-02-19] MEDS ORDERED: diphenhydrAMINE INJ 50 MG/ML VIAL IVP SCH (11:00)
[2020-02-19 13:14] VITALS: BP 132/75
== END 2020-02-19 07:32 | disposition home or self-care (01) ==
LOC: SDS 07:31
PROVIDERS: ATTEND Obstetrics & Gynecology
PROC: 0UH97HZ Insertion of Contraceptive Device into Uterus, Via Natural or Artificial Opening (ICD-10-PCS; 2020-02-19)
PROC: 0UDB7ZZ Extraction of Endometrium, Via Natural or Artificial Opening (ICD-10-PCS; principal; 2020-02-19 08:45)
PROC: 0UJD8ZZ Inspection of Uterus and Cervix, Via Natural or Artificial Opening Endoscopic (ICD-10-PCS; 2020-02-19 08:45)
DX: N93.8 Other specified abnormal uterine and vaginal bleeding (principal); N92.0 Excessive and frequent menstruation with regular cycle; J45.909 Unspecified asthma, uncomplicated; I10 Essential (primary) hypertension; E11.9 Type 2 diabetes mellitus without complications; F41.9 Anxiety disorder, unspecified
CPT/HCPCS: 58300; 58558; 81025; A9270; J0131; J1170; J1200; J7120; J7298

== ENCOUNTER 2020-02-25 18:19 | Emergency (ER) | payer MEDICAID ==
[2020-02-25] MEDS ORDERED: DEXAMETHASONE 10 MG/ML VIAL IM STA (20:36)
--- NOTE | 2020-02-25 21:19 | XRAY Report ---
PROCEDURE: Chest 2 View X-Ray INDICATIONS: Shortness of breath and chest pain, TECHNIQUE: 2 view(s) of the chest. COMPARISON: None. FINDINGS: Surgical changes and devices: None. Lungs and pleura: No pleural effusions or pneumothorax. Lungs are clear. Mediastinum: Mediastinal contours are normal. Heart size is normal. Bones and chest wall: No suspicious bony abnormalities. Soft tissues appear unremarkable. IMPRESSION: Normal chest Reviewed by: Michelle Barton MD on 02/25/2020 9:18 PM PDT Approved by: Michelle Barton MD on 02/25/2020 9:18 PM PDT Station ID: [id number]
[2020-02-25] MEDS ORDERED: traMADol 50 MG TABLET PO STA (21:20)
--- NOTE | 2020-02-25 21:20 | ED Physician Documentation ---
History of Present Illness - Stated complaint Stated Complaint: POST-OP PX - Chief complaint Chief Complaint: Heent - History obtained from History obtained from: Patient - History of Present Illness Timing: How many weeks ago (1) - Additonal information Additional information: 44-year-old female [facility] and she had general anesthesia for this and had some trouble when she woke up with a bit of a sore throat and some difficulty breathing. She was given some dexamethasone. She reports that the following day she began to experience pain in all of her teeth. She does not have any 1 specific tooth that is bothering her but upper and lower teeth all the way around are painful and sensitive to heat and cold. She has not had this happen to her previously. There is enough pain that is kept her awake at night and she is not getting relief with the use of oxycodone. She thought that this may be the culprit and stopped taking it. She states that she does not have pain from the surgical site. Review of Systems Constitutional: denies: Fever, Chills, Myalgias, Fatigue Eyes: denies: Decreased vision Ears: denies: Ear pain Nose: denies: Rhinorrhea / runny nose Throat: reports: Dental pain / toothache. 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 - Present Medications Home Medications: Ambulatory Orders Medication Instructions Recorded Confirmed Albuterol [Ventolin Hfa] 2 puffs INH Q4H PRN 07/03/13 02/19/20 Lisinopril [Zestril] 10 mg PO DAILY 02/17/20 02/19/20 Metformin HCl 1,000 mg PO BID 02/17/20 02/19/20 traMADol [Ultram] 50 - 100 mg PO Q6H PRN #20 tablet 02/25/20 - Allergies Allergies/Adverse Reactions: Allergies Allergy/AdvReac Type Severity Reaction Status Date / Time No Known Drug Allergies Allergy Verified 01/17/19 17:53 - Social History Does the pt smoke?: No Smoking Status: Never smoker Does the pt drink ETOH?: Yes Does the pt have substance abuse?: No - Immunizations Immunizations are current?: Yes - POLST Patient has POLST: No PD ED PE NORMAL - Vitals Vital signs reviewed: Yes (Hypertensive) - General General: Alert and oriented X 3, No acute distress, Well developed/nourished - HEENT HEENT: Atraumatic, PERRL, EOMI, Ears normal, Moist mucous membranes, Pharynx benign, Dentition benign, Other (The teeth and gumline appear unremarkable and yet tender all the way throughout. 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, No motor deficit, No sensory deficit, Normal speech Eye Opening: Spontaneous Motor: Obeys Commands Verbal: Oriented GCS Score: 15 - Psych Psych: Normal mood, Other (Affect is blunted) Results - Vitals Vitals: Vital Signs - 24 hr 02/25/20 02/25/20 18:37 21:35 Temperature 37 C Heart Rate 85 80 Respiratory 16 14 Rate Blood Pressure 156/82 H 148/84 H O2 Saturation 100 100 Oxygen O2 Source Room air - Rads (name of study) chest Radiology: Prelim report reviewed (Impression: Normal chest.), EMP read indepedently, See rad report PD MEDICAL DECISION MAKING - ED course Complexity details: reviewed old records, reviewed results, re-evaluated patient, considered differential, d/w patient ED course: 44-year-old female with what sounds like an idiopathic reaction to something has dental pain to both upper and lower teeth. My suspicion was that something that was used during the procedure may have caused the patient and idiopathic reaction to have all of her teeth hurt. She is administered some dexamethasone here and we will place her on some tramadol for pain control. I did not find a satisfactory answer to why this patient would have all of her teeth hurt and I have provided supportive care in the anticipation this will self resolve. She is driving today and the Tramadol is dispensed by me to the patient for use tonight as needed. Departure - Departure Disposition: 01 Home, Self Care Clinical Impression: Pain, dental Condition: Stable Instructions: ED Tooth Pain Follow-Up: [facility] [Provider Group] Prescriptions: traMADol [Ultram] 50 - 100 mg PO Q6H PRN #20 tablet PRN Reason: Pain Discharge Date/Time: 02/25/20 21:36
[2020-02-25 21:37] VITALS: BP 148/84
== END 2020-02-25 21:36 | disposition home or self-care (01) ==
LOC: ED 18:19
DX: K08.89 Other specified disorders of teeth and supporting structures (principal); E11.9 Type 2 diabetes mellitus without complications; Z79.84 Long term (current) use of oral hypoglycemic drugs
CPT/HCPCS: 71046; 96372; 99283; 99284; A9270

== ENCOUNTER 2020-08-24 08:00 | Outpatient (CLI) | payer MEDICAID ==
[2020-08-24 18:56] LABS: BASOPHILS % (AUTO) 0.3 %; EOSINOPHILS # (AUTO) 0.1 10^3/uL (0.0-0.7); EOSINOPHILS % (AUTO) 1.4 %; HGB - HEMOGLOBIN 12.1 g/dL (12.0-16.0); LYMPHOCYTES # (AUTO) 3.2 10^3/uL (1.5-3.5); LYMPHOCYTES % (AUTO) 32.8 %; MEAN CORPUSCULAR HGB CONC 30.9 g/dL (32.0-36.0); MEAN PLATELET VOLUME 10.8 fL (7.9-10.8); MONOCYTES # (AUTO) 0.5 10^3/uL (0.0-1.0); MONOCYTES % (AUTO) 4.7 %; NEUTROPHILS # (AUTO) 5.8 10^3/uL (1.5-6.6); NEUTROPHILS % (AUTO) 60.2 %; PLT - PLATELET COUNT 423 10^3/uL (130-450); RED BLOOD COUNT 4.84 10^6/uL (4.20-5.40); RED CELL DISTRIBUTION WIDTH 15.2 % (12.0-15.0); WHITE BLOOD COUNT 9.7 x10^3/uL (4.8-10.8)
[2020-08-24 19:03] LABS: ALBUMIN 3.8 g/dL (3.2-5.5); ALBUMIN/GLOBULIN RATIO 1.1 (1.0-2.2); ALKALINE PHOSPHATASE 63 IU/L (42-121); ALT ALANINE AMINOTRANSFERASE 21 IU/L (10-60); AST ASPARTATE AMINOTRANSFERASE 19 IU/L (10-42); BILIRUBIN,TOTAL 0.4 mg/dL (0.2-1.0); BUN - BLOOD UREA NITROGEN 6 mg/dL (6-20); CALCIUM 8.6 mg/dL (8.5-10.3); CARBON DIOXIDE - CO2 24 mmol/L (21-32); CHLORIDE 102 mmol/L (101-111); CHOL/HDL RATIO 2.8 (<4.4); CHOLESTEROL 112 mg/dL; CREATININE 0.8 mg/dL (0.4-1.0); GLUCOSE 183 mg/dL (70-100); HDL CHOLESTEROL 40 mg/dL; LDL CHOLESTEROL,CALCULATED 53 mg/dL; LDL/HDL RATIO 1.3 (<4.4); SODIUM 136 mmol/L (135-145); TOTAL PROTEIN 7.3 g/dL (6.7-8.2); VLDL CHOLESTEROL 19 mg/dL
[2020-08-24 21:03] LABS: HEMOGLOBIN A1c% 8.3 % (4.27-6.07)
== END 2020-08-24 23:59 | disposition home or self-care (01) ==
LOC: LAB.WCP 08:00
PROVIDERS: ATTEND Nurse Practitioner Family
DX: D64.9 Anemia, unspecified (principal); E11.9 Type 2 diabetes mellitus without complications; I10 Essential (primary) hypertension
CPT/HCPCS: 36415; 80053; 80061; 83036; 83721; 84443; 85025

== ENCOUNTER 2020-08-27 02:22 | Emergency (ER) | payer MEDICAID ==
[2020-08-27 02:31] VITALS: BP 153/91
--- NOTE | 2020-08-27 02:45 | ED Physician Documentation ---
PD HPI OPHTHO - Stated complaint Stated Complaint: RT EYE PX - Chief complaint Chief Complaint: Heent - History obtained from History obtained from: Patient - History of Present Illness Timing - onset: How many hours ago (4) Timing - duration: Hours (4) Timing - details: Abrupt onset, Still present Location: Right Quality / character: Itching, Burning Associated symptoms: Redness, Swelling, Tearing. No: Discharge, FB sensation, Photophobia Contributing factors: Other (she was using hair perm at work and a drop of it splatter to right eye area. She thought just eyelid and not eye itself. Did rinse eye and got some mascara in eye when she did. [place] some irritation but then irritation increased about 4 hours ago and she noted swelling of the eyeball.) Similar symptoms before: Has not had sx before Review of Systems Constitutional: denies: Fever, Chills Nose: denies: Rhinorrhea / runny nose, Congestion Throat: denies: Sore throat Respiratory: denies: Cough PD PAST MEDICAL HISTORY - Past Medical History Past Medical History: Yes Cardiovascular: Hypertension Respiratory: Asthma Endocrine/Autoimmune: Type 2 diabetes GI: GERD : None HEENT: None Psych: Panic attacks, Post traumatic stress disorder, Claustrophobia Musculoskeletal: None Derm: Eczema - Past Surgical History 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 - Present Medications Home Medications: Ambulatory Orders Medication Instructions Recorded Confirmed Albuterol [Ventolin Hfa] 2 puffs INH Q4H PRN 07/03/13 08/27/20 Lisinopril [Zestril] 10 mg PO DAILY 02/17/20 08/27/20 Ketorolac 0.45% Ophth Drops 1 each RIGHTEYE QID 3 Days #1 08/27/20 [Acuvail] bottle Ketotifen Fumarate 2 - 3 drops RIGHTEYE QID PRN 3 08/27/20 Days #5 ml - Allergies Allergies/Adverse Reactions: Allergies Allergy/AdvReac Type Severity Reaction Status Date / Time No Known Drug Allergies Allergy Verified 08/27/20 02:31 - Social History Does the pt smoke?: No Smoking Status: Never smoker Does the pt drink ETOH?: Yes Does the pt have substance abuse?: No - Immunizations Immunizations are current?: Yes - POLST Patient has POLST: No PD ED PE NORMAL - Vitals Vital signs reviewed: Yes - General General: Alert and oriented X 3, No acute distress, Well developed/nourished - HEENT HEENT: PERRL, EOMI, Other (right eye with conjunctival boggy edema. Iris normal. No FB seen. No dye uptake. ) Results - Vitals Vitals: Vital Signs - 24 hr 08/27/20 02:25 Temperature 36.2 C L Heart Rate 78 Respiratory 16 Rate Blood Pressure 153/91 H O2 Saturation 100 Oxygen O2 Source Room air PD MEDICAL DECISION MAKING - ED course Complexity details: considered differential (boddy swelling of conjunctiva c/w local reaction (chemical vs allergic).), d/w patient Departure - Departure Disposition: Home, Self Care Clinical Impression: Conjunctivitis, right eye Qualifiers: Conjunctivitis type: acute Acute conjunctivitis type: atopic Qualified Code(s): H10.11 - Acute atopic conjunctivitis, right eye Condition: Stable Record reviewed to determine appropriate education?: Yes Instructions: ED Chemical Conjunctivitis Follow-Up: VALENTIN GOMEZ, MSN, [facility] [Primary Care Provider] - Prescriptions: Ketorolac 0.45% Ophth Drops [Acuvail] 1 each RIGHTEYE QID 3 Days #1 bottle Ketotifen Fumarate 2 - 3 drops RIGHTEYE QID PRN 3 Days #5 ml PRN Reason: Allergy Symptoms Comments: It appears a chemical irritation/"allergic" reaction of the conjuntiva. This should improve over the next couple of days and can be improved better with antihistamine and anti-inflammatory eye drops as directed. Recheck if not improved and resolved over the next 2-3 days, return if worsening. Tylenol if needed for pains. Discharge Date/Time: 08/27/20 03:42
[2020-08-27] MEDS ORDERED: CETIRIZINE 10 MG TABLET PO STA (03:13)
[2020-08-27] MEDS ORDERED: KETOROLAC 0.45% OPHTH DROPS RIGHTEYE ONE (03:13)
[2020-08-27] MEDS ORDERED: KETOROLAC 0.45% OPHTH DROPS ONE (03:42)
--- OUTSIDE RECORDS SUMMARY | 2020-09-02 00:56 | EXTERNAL MEDICAL SUMMARY RPT | Continuity of Care Document ---
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 2014-11-12 17:29 ASTHMA, UNSPECIFIED [facility] 2014-11-12 17:29 COUGH [facility] 2016-08-26 10:31 CONTACT W AND EXPOSURE TO INFECT [facility] W A SEXL MODE OF TRANSMISS 2016-09-17 14:45 CANDIDIASIS OF VULVA AND VAGINA [facility] 2016-09-17 14:45 FEMALE PELVIC INFLAMMATORY [facility] DISEASE, UNSPECIFIED 2016-09-17 14:45 UNSPECIFIED ABDOMINAL PAIN [facility] 2017-10-19 08:00 ENCOUNTER FOR SCREENING, [facility] UNSPECIFIED 2017-10-27 09:40 [facility] 2017-10-27 09:40 ENCOUNTER FOR SCREENING, [facility] UNSPECIFIED 2017-11-03 10:22 ENCOUNTER FOR OTH SCREENING FOR [facility] MALIGNANT NEOPLASM OF BREAST 2018-03-20 08:00 OTHER SPECIFIED IRREGULAR [facility] MENSTRUATION 2018-05-04 18:55 ANEMIA, UNSPECIFIED [facility] 2018-05-04 18:55 EXCESSIVE AND FREQUENT [facility] MENSTRUATION WITH REGULAR CYCLE 2018-05-04 18:55 GENERALIZED INTRA-ABD AND PELVIC [facility] SWELLING, MASS AND LUMP 2018-05-08 17:35 ACUTE INFLAMMATORY DISEASE OF [facility] UTERUS 2018-07-20 08:00 DYSURIA [facility] 2018-07-20 08:00 HEMATURIA, UNSPECIFIED [facility] 2018-07-20 08:00 HIGH RISK HETEROSEXUAL BEHAVIOR [facility] 2018-08-10 11:57 ESSENTIAL (PRIMARY) HYPERTENSION [facility] 2018-08-10 11:57 HYPERGLYCEMIA, UNSPECIFIED [facility] 2018-08-10 11:57 UNSP ABNORMAL FINDING IN [facility] SPECIMENS FROM OTH ORG/TISS 2018-08-10 11:57 ENCOUNTER FOR SCREENING, [facility] UNSPECIFIED 2018-11-15 08:00 TYPE 2 DIABETES MELLITUS WITHOUT [facility] COMPLICATIONS 2019-01-17 17:36 TYPE 2 DIABETES MELLITUS WITHOUT [facility] COMPLICATIONS 2019-01-17 17:36 ATRIOVENTRICULAR BLOCK, 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 UNCOMPLICATED 2019-01-17 17:36 OTHER CHEST PAIN [facility] 2019-03-04 08:00 ANEMIA, UNSPECIFIED [facility] 2019-11-01 08:27 ANEMIA, UNSPECIFIED [facility] 2019-11-01 08:27 TYPE 2 DIABETES MELLITUS WITHOUT [facility] COMPLICATIONS 2019-12-23 14:03 INTRAMURAL LEIOMYOMA OF UTERUS [facility] 2020-02-17 09:07 EXCESSIVE AND FREQUENT [facility] MENSTRUATION WITH REGULAR CYCLE 2020-02-17 09:07 OTHER SPECIFIED ABNORMAL UTERINE [facility] AND VAGINAL BLEEDING 2020-02-17 09:07 ENCOUNTER FOR PREPROCEDURAL [facility] LAB[facility] EXAMINATION 2020-02-17 09:07 [facility]UN[facility]ABLE DISEASES 2020-02-19 07:31 TYPE 2 DIABETES MELLITUS WITHOUT [facility] COMPLICATIONS 2020-02-19 07:31 ANXIETY DISORDER, UNSPECIFIED [facility] 2020-02-19 07:31 ESSENTIAL (PRIMARY) HYPERTENSION [facility] 2020-02-19 07:31 UNSPECIFIED ASTHMA, [facility] UNCOMPLICATED 2020-02-19 07:31 EXCESSIVE AND FREQUENT [facility] MENSTRUATION WITH REGULAR CYCLE 2020-02-19 07:31 OTHER SPECIFIED ABNORMAL UTERINE [facility] AND VAGINAL BLEEDING 2020-02-25 18:19 TYPE 2 DIABETES MELLITUS WITHOUT [facility] COMPLICATIONS 2020-02-25 18:19 OTHER SPECIFIED DISORDERS OF [facility] TEETH AND SUPPORTING STRUCTURES 2020-02-25 18:19 CARE HOME (CURRENT) USE OF ORAL [facility] HYPOGLYCEMIC DRUGS 2020-06-19 00:00:00 Dermatophytosis of nail [facility] 2020-06-19 00:00:00 COMPREHENSIVE METABOLIC PANEL [facility] 2020-06-19 00:00:00 HGBA1C [facility] 2020-06-19 00:00:00 CBC W/Diff/Plt [facility] 2020-06-19 00:00:00 Health-related behavior [facility] 2020-06-19 00:00:00 Never smoker [facility] 2020-06-19 00:00:00 Total score? [facility] 2020-06-19 00:00:00 TSH WITH REFLEX TO FT4 [facility] 2020-06-19 00:00:00 LIPIDS SCREEN [facility] 2020-06-19 00:00:00 Tinea unguium [facility] 2020-06-19 00:00:00 Tobacco use and exposure [facility] 2020-06-19 00:00:00 Exercise [facility] 2020-06-19 00:00:00 Onychomycosis [facility] 2020-06-19 00:00:00 Alcohol use [facility] 2020-06-19 00:00:00 Tobacco smoking status [facility]IS [facility] 2020-08-24 00:00 TYPE 2 DIABETES MELLITUS WITHOUT [facility] COMPLICATIONS 2020-08-24 08:00 TYPE 2 DIABETES MELLITUS WITHOUT [facility] COMPLICATIONS 2020-08-25 00:00:00 [facility] 2020-08-25 00:00:[facility]in [facility] 2020-08-25 00:00:00 [facility] 2020-08-25 00:00:00 [facility] 2020-08-25 00:00:00 [facility] 2020-08-25 00:00:00 [facility] 2020-08-25 00:00:00 [facility] 2020-08-25 00:00:00 Tobacco smoking status NHIS [facility] 2020-08-25 00:00:00 Total score? [facility] Allergies date description facility FENOFIBRATE [facility] MEMANTINE [facility] PHENAZOPYRIDINE HCL [facility] betty [place] TRIMETHOPRIM [facility] PHENAZOPYRIDINE HCL [facility] NO KNOWN ENVIRONMENTAL ALLERGIES [facility] PENICILLINS [facility] STATINS [facility] SULFA ANTIBIOTICS [facility] No Known Drug Allergies [facility] NO KNOWN ALLERGIES [facility] WEED POLLEN [facility] JUNIPER TAR [facility] No Known Drug Allergies [facility] CYCLOBENZAPRINE [facility] HYDROCODONE [facility] MORPHINE [facility] NO KNOWN ENVIRONMENTAL ALLERGIES [facility] INFLUENZA VIRUS VACCINES [facility] IODINATED CONTRAST MEDIA [facility] LATEX, NATURAL RUBBER [facility] dical Center [facility]AM [facility] ALTEPLASE [facility] CE[facility]ALEXIN [facility] TRAMADOL [facility] DOXEPIN [facility] DIP[facility]ENHYDRAMINE [facility] SILVER [facility] CLONIDINE HCL [facility] LATEX [facility] FLU VACCINE [id number] YR+) [facility] FAT [id number] OIL [facility] HYDROCODONE-ACETAMINOPHEN [facility] No Known Drug Allergies [facility] FENOFIBRATE [facility] MEMANTINE [facility] PHENAZOPYRIDINE HCL [facility] PHENAZOPYRIDINE HCL [facility] NO KNOWN ENVIRONMENTAL ALLERGIES [facility] PENICILLINS [facility] STATINS [facility] SULFA ANTIBIOTICS [facility] No Known Drug Allergies [facility] Medications date description facility 2020-08-25 00:00:00 null [facility] 2020-08-25 00:00:00 null [facility] 2020-08-25 00:00:00 GLIPIZIDE [facility] 2020-08-25 00:00:00 GLIPIZIDE [facility] Procedures date description facility 2020-06-19 00:00:00 TSH WITH REFLEX TO FT4 [facility] date description facility 2020-06-19 00:00:00 COMPREHENSIVE METABOLIC PANEL [facility] date description facility 2020-06-19 00:00:00 LIPIDS SCREEN [facility] date description facility 2020-06-19 00:00:00 HGBA1C [facility] date description facility 2020-06-19 00:00:00 CBC W/Diff/Plt [facility] date description facility 2020-06-19 00:00:00 [facility] date description facility 2020-06-19 00:00:00 TSH WITH REFLEX TO FT4 [facility] date description facility 2020-06-19 00:00:00 COMPREHENSIVE METABOLIC PANEL [facility] date description facility 2020-06-19 00:00:00 [facility]IDS [facility]CREEN [facility] date description facility 2020-06-19 00:00:00 HGBA1C [facility] date description facility 2020-06-19 00:00:00 CBC W/Diff[facility]Plt [facility] date description facility 2020-06-19 00:00:00 [facility] Results Social History date description facility 2020-06-19 00:00:00 Never smoker [facility] date description facility 2020-08-25 00:00:00 Never smoker [facility] Social History date description facility 2020-06-19 00:00:00 [facility] smoker [facility] date description facility 2020-08-25 00:00:00 Never smoker [facility] date description facility [id number]
== END 2020-08-27 03:42 | disposition home or self-care (01) ==
LOC: ED 02:22
DX: H10.11 Acute atopic conjunctivitis, right eye (principal); I10 Essential (primary) hypertension; E11.9 Type 2 diabetes mellitus without complications
CPT/HCPCS: 99282; 99283; A9270

== ENCOUNTER 2020-09-16 08:00 | Outpatient (CLI) | payer MEDICAID ==
[2020-09-16 18:55] LABS: BASOPHILS # (AUTO) 0.1 10^3/uL (0.0-0.1); BASOPHILS % (AUTO) 0.4 %; EOSINOPHILS # (AUTO) 0.2 10^3/uL (0.0-0.7); EOSINOPHILS % (AUTO) 1.2 %; LYMPHOCYTES # (AUTO) 3.9 10^3/uL (1.5-3.5); LYMPHOCYTES % (AUTO) 29.7 %; MEAN CORPUSCULAR HEMOGLOBIN 25.5 pg (27.0-31.0); MEAN CORPUSCULAR HGB CONC 31.6 g/dL (32.0-36.0); MEAN CORPUSCULAR VOLUME 80.9 fL (81.0-99.0); MEAN PLATELET VOLUME 10.8 fL (7.9-10.8); MONOCYTES # (AUTO) 0.6 10^3/uL (0.0-1.0); MONOCYTES % (AUTO) 4.7 %; NEUTROPHILS # (AUTO) 8.2 10^3/uL (1.5-6.6); NEUTROPHILS % (AUTO) 63.5 %; PLT - PLATELET COUNT 418 10^3/uL (130-450); RED CELL DISTRIBUTION WIDTH 14.6 % (12.0-15.0)
[2020-09-16 19:06] LABS: ALBUMIN 4.1 g/dL (3.2-5.5); ALBUMIN/GLOBULIN RATIO 1.2 (1.0-2.2); BILIRUBIN,TOTAL 0.4 mg/dL (0.2-1.0); CALCIUM 9.5 mg/dL (8.5-10.3); CREATININE 0.8 mg/dL (0.4-1.0); TOTAL PROTEIN 7.4 g/dL (6.7-8.2)
== END 2020-09-16 23:59 | disposition home or self-care (01) ==
LOC: LAB.WCP 08:00
PROVIDERS: ATTEND Nurse Practitioner
DX: R11.2 Nausea with vomiting, unspecified (principal); R10.11 Right upper quadrant pain; D64.9 Anemia, unspecified
CPT/HCPCS: 36415; 80053; 82728; 83540; 84466; 85025

== ENCOUNTER 2020-12-07 08:00 | Outpatient (CLI) | payer MEDICAID ==
[2020-12-07 12:26] LABS: ESTIMATED AVERAGE GLUCOSE 148 mg/dL (70-100); HEMOGLOBIN A1c% 6.8 % (4.27-6.07)
[2020-12-07 13:21] LABS: CALCIUM 9.1 mg/dL (8.5-10.3); CREATININE 0.7 mg/dL (0.4-1.0); POTASSIUM 3.8 mmol/L (3.5-5.0)
[2020-12-07 21:15] LABS: CHLAMYDIA TRACHOMATIS DNA NEGATIVE (NEGATIVE); NEISSERIA GONORRHOEAE DNA NEGATIVE (NEGATIVE); TRICHOMONAS VAGINALIS DNA NEGATIVE (NEGATIVE)
[2020-12-08 12:47] LABS: HEPATITIS C ANTIBODY NON-REACTIVE (NON-REACTIVE)
[2020-12-08 16:07] LABS: HIV AG/AB 4TH GEN NON-REACTIVE (NON-REACTIVE)
== END 2020-12-07 23:59 | disposition home or self-care (01) ==
LOC: LAB.WCP 08:00
PROVIDERS: ATTEND Nurse Practitioner Family
DX: E11.9 Type 2 diabetes mellitus without complications (principal); Z11.3 Encounter for screening for infections with a predominantly sexual mode of transmission
CPT/HCPCS: 36415; 80048; 83036; 86592; 86803; 87389; 87491; 87591; 87661

== ENCOUNTER 2021-01-13 16:36 | Emergency (ER) | payer MEDICAID ==
[2021-01-13 17:09] LABS: BASOPHILS # (AUTO) 0.1 10^3/uL (0.0-0.1); BASOPHILS % (AUTO) 0.4 %; EOSINOPHILS # (AUTO) 0.3 10^3/uL (0.0-0.7); EOSINOPHILS % (AUTO) 2.5 %; HCT - HEMATOCRIT 37.3 % (37.0-47.0); HGB - HEMOGLOBIN 11.6 g/dL (12.0-16.0); LYMPHOCYTES # (AUTO) 4.2 10^3/uL (1.5-3.5); LYMPHOCYTES % (AUTO) 34.2 %; MEAN CORPUSCULAR HEMOGLOBIN 25.4 pg (27.0-31.0); MEAN CORPUSCULAR HGB CONC 31.1 g/dL (32.0-36.0); MEAN CORPUSCULAR VOLUME 81.6 fL (81.0-99.0); MEAN PLATELET VOLUME 9.7 fL (7.9-10.8); MONOCYTES # (AUTO) 0.5 10^3/uL (0.0-1.0); MONOCYTES % (AUTO) 4.4 %; NEUTROPHILS # (AUTO) 7.2 10^3/uL (1.5-6.6); NEUTROPHILS % (AUTO) 58.1 %; PLT - PLATELET COUNT 414 10^3/uL (130-450); RED BLOOD COUNT 4.57 10^6/uL (4.20-5.40); RED CELL DISTRIBUTION WIDTH 14.7 % (12.0-15.0); WHITE BLOOD COUNT 12.4 x10^3/uL (4.8-10.8)
[2021-01-13 17:22] LABS: ALBUMIN 4.2 g/dL (3.2-5.5); ALBUMIN/GLOBULIN RATIO 1.1 (1.0-2.2); BILIRUBIN,TOTAL 0.2 mg/dL (0.2-1.0); CALCIUM 8.7 mg/dL (8.5-10.3); CREATININE 0.7 mg/dL (0.4-1.0); POTASSIUM 3.4 mmol/L (3.5-5.0); TOTAL PROTEIN 7.9 g/dL (6.7-8.2)
[2021-01-13] MEDS ORDERED: ONDANSETRON 4 MG/2 ML VIAL IVP STA (17:23)
[2021-01-13] MEDS ORDERED: SODIUM CHLORIDE 0.9% 1,000 ML IV STA (17:23)
[2021-01-13] MEDS ORDERED: HYDROmorphone 1 MG/ML CARPUJECT IVP STA (17:23)
--- NOTE | 2021-01-13 17:23 | ED Physician Documentation ---
History of Present Illness - Stated complaint Stated Complaint: ABD PX - Chief complaint Chief Complaint: Abd Pain - Additonal information Additional information: 45-year-old female presents emergency department for evaluation of 1 week right upper quadrant abdominal pain with associated nausea and vomiting. She reports her early CAD after eating as well as feeling bloated after most meals. She is had no vomiting melena or hematochezia. She does have a history of diabetes on Metformin only does not check her sugars at home. She denies flank pain dysuria urgency or frequency. Past surgical history is pertinent for tubal ligation and previous D&C only. Review of Systems Constitutional: denies: Fever, Chills Eyes: reports: Reviewed and negative Ears: reports: Reviewed and negative Nose: reports: Reviewed and negative Throat: reports: Reviewed and negative Cardiac: denies: Chest pain / pressure, Palpitations Respiratory: denies: Dyspnea, Cough GI: reports: Abdominal Pain, Nausea. 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 - Present Medications Home Medications: Ambulatory Orders Medication Instructions Recorded Confirmed Albuterol [Ventolin Hfa] 2 puffs INH Q4H PRN 07/03/13 01/13/21 Omeprazole 40 mg PO DAILY #30 01/13/21 Ondansetron Odt [Zofran] 4 mg TL Q6H PRN #10 tablet 01/13/21 - Allergies Allergies/Adverse Reactions: Allergies Allergy/AdvReac Type Severity Reaction Status Date / Time No Known Drug Allergies Allergy Verified 01/13/21 16:50 - Social History Does the pt smoke?: No Smoking Status: Never smoker Does the pt drink ETOH?: Yes Does the pt have substance abuse?: No - Immunizations Immunizations are current?: Yes - POLST Patient has POLST: No PD ED PE EXPANDED - General General: Alert, In Pain - Cardiac Cardiac: Regular Rate, Radial strong equal, Pedal strong equal, Cap refill < 2 sec. No: Murmur Present - Respiratory Respiratory: Clear to ausultation shane. No: Distress, Labored - Abdomen Abdomen: Normal Bowel sounds, Tender to palpation (RUQ ttp with rebound. Left flank ttp referred to RUQ) - Back Back: Normal exam. No: Vertebral tenderness, Soft tissue tenderness - Derm Derm: Normal color, Warm and dry. No: Pale - Extremities Extremities: Normal. No: Deformity, Tenderness - Neuro Neuro: Alert and Oriented X 3, CNII-XII intact - GCS Eye Opening: Spontaneous Motor: Obeys Commands Verbal: Oriented Total: 15 Results - Vitals Vitals: Vital Signs - 24 hr 01/13/21 01/13/21 16:46 17:33 Temperature 36.6 C 37.3 C Heart Rate 79 73 Respiratory 16 19 Rate Blood Pressure 143/89 H 130/77 O2 Saturation 99 100 Oxygen O2 Source Room air - Labs Labs: Laboratory Tests 01/13/21 01/13/21 01/13/21 16:58 17:01 17:01 WBC 12.4 H RBC 4.57 Hgb 11.6 L Hct 37.3 MCV 81.6 MCH 25.4 L MCHC 31.1 L RDW 14.7 Plt Count 414 MPV 9.7 Neut # (Auto) 7.2 H Lymph # (Auto) 4.2 H [place] # (Auto) 0.5 Eos # (Auto) 0.3 Baso # (Auto) 0.1 Absolute Nucleated RBC 0.00 Nucleated RBC % 0.0 Sodium 135 Potassium 3.4 L Chloride 101 Carbon Dioxide 26 Anion Gap 8.0 BUN 10 Creatinine 0.7 Estimated GFR (MDRD) 110 Glucose 116 H Calcium 8.7 Total Bilirubin 0.2 AST 14 ALT 13 Alkaline Phosphatase 55 Total Protein 7.9 Albumin 4.2 Globulin 3.7 Albumin/Globulin Ratio 1.1 Lipase 26 Urine Color YELLOW Urine Clarity CLEAR Urine pH 6.5 Ur Specific [place] 1.020 Urine Protein NEGATIVE Urine Glucose (UA) NEGATIVE Urine Ketones NEGATIVE Urine Occult Blood SMALL H Urine Nitrite NEGATIVE Urine Bilirubin NEGATIVE Urine Urobilinogen 1 (NORMAL) Ur Leukocyte Esterase NEGATIVE Urine RBC 0-5 Urine WBC 0-3 Ur Squamous Epith Cells RARE Squamous Urine Bacteria None Seen Ur Microscopic Review INDICATED Urine Culture Comments NOT INDICATED - Rads (name of study) abd US Radiology: Final report received (Contracted gallbladder) ABD CT Radiology: Final report received (No acute process.) PD MEDICAL DECISION MAKING - ED course Complexity details: reviewed results, re-evaluated patient, considered differential, d/w patient ED course: 45-year-old female who has a history of diabetes presents the emergency depa rtment with 3 days of upper abdominal pain nausea and occasional vomiting. She has had no fevers. Past surgical history included tubal ligation only. On exam she has some generalized upper abdominal tenderness. Screening labs showed a very mild leukocytosis 12.4. No fevers or vital sign abnormality. Initially an ultrasound was completed that showed a contracted gallbladder however patient continued to have upper abdominal pain therefore CT of the abdomen was completed. It did not show any acute findings. However I do suspect that this patient has a gastritis likely associated with long-term diabetes. She was giving viscous lidocaine here in the emergency department with good relief of the symptoms. She is also given Protonix. I do feel that long-term she would benefit from an EGD and she will follow up with her primary care doctor to obtain this referral. In the short-term I will place her on some Zofran, advised a bland diet as well as put her on daily omeprazole. Return precautions were discussed for fevers, uncontrolled vomiting worsening abdominal pain or melena hematochezia. Departure - Departure Disposition: 01 Home, Self Care Clinical Impression: Upper abdominal pain Gastritis Qualifiers: Gastritis type: unspecified gastritis Chronicity: acute Gastritis bleeding: without bleeding Qualified Code(s): K29.00 - Acute gastritis without bleeding Condition: Stable Record reviewed to determine appropriate education?: Yes Instructions: ED PUD Vs Gastritis Follow-Up: VALENTIN GOMEZ, MSN, EMPLOYMENT REPRESENTATIVE [Primary Care Provider] - Prescriptions: Omeprazole 40 mg PO DAILY #30 Ondansetron Odt [Zofran] 4 mg TL Q6H PRN #10 tablet PRN Reason: Nausea / Vomiting Comments: Lorri you were seen in the emergency department today for upper abdominal pain and nausea. As we discussed your screening labs were essentially normal. However I was concerned that the pain after eating could have been related to your gallbladder. Reassuringly the ultrasound did not show problems with the gallbladder. We also did a CAT scan of your abdomen that showed no worrisome findings. However I do suspect that the cause of your upper abdominal pain is gastritis or early peptic ulcer disease. This is a condition in which ulcers can form in the stomach cause pain and nausea after eating. I have ordered some Zofran and nausea medicine to help with nausea at home. Over the next few days I recommend a very bland diet avoiding caffeine or any spicy foods. I would also like you to take small frequent bites of food as opposed to eating 2-3 larger meals. I think that you would benefit from beginning to take a daily acid medication therefore I have also prescribed omeprazole. I would like you to discuss this ED visit with your primary care doctor as soon as possible. You should be referred to a brand coordinator for an endoscopy of your stomach. Please return to the emergency department if you develop fevers, have worsening abdominal pain, any black or bloody stools or uncontrolled vomiting.
[2021-01-13 17:24] LABS: BILIRUBIN,URINE NEGATIVE (NEGATIVE); GLUCOSE, URINE (UA) NEGATIVE (NEGATIVE); KETONES,URINE (UA) NEGATIVE (NEGATIVE); LEUKOCYTE ESTERASE, URINE NEGATIVE (NEGATIVE); NITRITE,URINE NEGATIVE (NEGATIVE); OCCULT BLOOD,URINE SMALL (NEGATIVE); PH,URINE 6.5 PH (5.0-7.5); PROTEIN,URINE NEGATIVE (NEGATIVE); UROBILINOGEN,URINE 1 (NORMAL) E.U./dL (NORMAL)
[2021-01-13 17:26] LABS: CLARITY,URINE CLEAR (CLEAR)
[2021-01-13 17:33] LABS: BACTERIA,URINE None Seen /HPF (None Seen); RBC,URINE 0-5 /HPF (0-5); SQUAMOUS EPITHELIAL CELL,UR RARE Squamous (<= Few); WBC,URINE 0-3 /HPF (0-5)
--- OUTSIDE RECORDS SUMMARY | 2021-01-13 17:41 | EXTERNAL MEDICAL SUMMARY RPT | Continuity of Care Document ---
:1975 Demographics Phone Unavailable Preferred Language Unknown Marital Status Unknown Jainism Affiliation Unknown Race Unknown Ethnic Group Unknown Author Organization [facility] Address [address] [id number] Phone Allergies Encounters Medications Problems Results
[2021-01-13] MEDS ORDERED: IOVERSOL 320 100 ML VIAL IVP ONE ×2 (18:21→21:09)
--- NOTE | 2021-01-13 19:05 | Ultrasound Report ---
PROCEDURE: Abdomen Limited INDICATIONS: RUQ abd sound TECHNIQUE: Real-time focused scanning was performed of the abdomen, with image documentation. COMPARISON: None FINDINGS: Liver is within normal limits. Gallbladder is contracted without evidence of wall thickeni ng or cholelithiasis. No biliary ductal dilatation. Pancreas is not well seen. Right kidney is within normal limits. IMPRESSION: No acute process. Reviewed by: Leo Villeda MD on 01/13/2021 7:04 PM PDT Approved by: Leo Villeda MD on 01/13/2021 7:04 PM PDT Station ID: [id number]
--- NOTE | 2021-01-13 20:16 | CT Report ---
PROCEDURE: Abdomen/Pelvis W INDICATIONS: RUQ abd pain CONTRAST: IV CONTRAST: Optiray 320 ml: 100 PO CONTRAST: *NO PO CONTRAST TECHNIQUE: After the administration of contrast, 5 mm thick sections acquired from the diaphragms to the sym physis. 5 mm thick coronal and sagittal reformats were acquired. For radiation dose reduction, the following was used: automated exposure control, adjustment of mA and/or kV according to patient size . COMPARISON: None. FINDINGS: Image quality: Excellent. ABDOMEN: Lung bases: Lung bases are clear. Heart size is normal. Solid organs: Liver and spleen are normal in size and enhancement. Gallbladder Biliary system is non dilated. Pancreas enhances normally. No adrenal nodules. Kidneys demonstrate normal size an d enhancement, without hydronephrosis. Evaluation for renal calculi is limited by contrast within th e collecting systems. Peritoneum and bowel: Bowel loops demonstrate normal wall thickness and caliber. No free fluid or a ir. Appendix is not definitively seen. No evidence of appendicitis. Nodes and vessels: No retroperitoneal or mesenteric adenopathy by size criteria. Aorta and inferior vena cava are normal in size. Miscellaneous: No ventral hernias. PELVIS: Genitourinary: Bladder wall thickness is normal. Intrauterine device is present. Miscellaneous: No inguinal hernias or adenopathy. Bones: No suspicious bony lesions. No vertebral body compression fractures. IMPRESSION: 1. No acute process. 2. Appendix not seen. No evidence of appendicitis. Reviewed by: Leo Villeda MD on 01/13/2021 8:15 PM PDT Approved by: Leo Villeda MD on 01/13/2021 8:15 PM PDT Station ID: [id number]
[2021-01-13] MEDS ORDERED: PANTOPRAZOLE 40 MG VIAL IVP STA (20:44)
[2021-01-13] MEDS ORDERED: LIDOCAINE VISCOUS 2% 15 ML UDC MM STA (20:44)
[2021-01-13 21:02] VITALS: BP 138/85
== END 2021-01-13 21:20 | disposition home or self-care (01) ==
LOC: ED 16:36
DX: K29.00 Acute gastritis without bleeding (principal); K82.0 Obstruction of gallbladder; K21.9 Gastro-esophageal reflux disease without esophagitis; I10 Essential (primary) hypertension; E11.9 Type 2 diabetes mellitus without complications; Z79.84 Long term (current) use of oral hypoglycemic drugs
CPT/HCPCS: 36415; 74177; 76705; 80053; 81001; 83690; 85025; 96374; 96375; 99284; J1170; Q9967; 81003; 87086

== ENCOUNTER 2021-02-02 12:30 | Outpatient (CLI) | payer MEDICAID ==
--- NOTE | 2021-02-02 16:15 | Nuclear Medicine Report ---
PROCEDURE: Hepatobiliary HIDA w/ Rx INDICATIONS: NAUSEA AND VOMITING RADIOPHARMACEUTICAL: 4.1 mCi Tc-99m meprofenin i.v. and 8 8 o.z. Ensure by mouth. TECHNIQUE: Following intravenous administration of Tc-99m meprofenin, sequential anterior abdominal images were obtained through 60 minutes. To evaluate the contractile response of the gallbladder in response to fatty meal, 8 o.z. Ensure was administered by mouth approximately 60 minutes after the ad ministration of the radiopharmaceutical. Sequential imaging was continued for 60 minutes. Gallbladd er ejection fraction was calculated. COMPARISON: CT abdomen and pelvis with contrast, 11/13/2020. Ultrasound abdomen, Limited, 11/13/2020. FINDINGS: Biliary scan: There is normal tracer uptake and excretion by the liver. There is normal visualizati on of the intrahepatic ducts, common bile duct, and gallbladder. There is normal tracer transit into the duodenum. CCK stimulation: There is normal contractile response of the gallbladder to Ensure. The calculated gallbladder ejection fraction is 87%; normal values are above 37%. IMPRESSION: 1. Normal biliary imaging study. 2. Normal contractile response of gallbladder to fatty meal stimulation. Reviewed by: Lizz Chowdhury MD on 02/02/2021 4:13 PM PDT Approved by: Lizz Chowdhury MD on 02/02/2021 4:13 PM PDT Station ID: [id number]
== END 2021-02-02 12:31 | disposition home or self-care (01) ==
LOC: DI 12:30
PROVIDERS: ATTEND Physician Assistant Medical
DX: R11.2 Nausea with vomiting, unspecified (principal)
CPT/HCPCS: 78227

== ENCOUNTER 2021-03-29 08:00 | Outpatient (CLI) | payer MEDICAID ==
[2021-03-29 22:29] LABS: BACTERIAL VAGINOSIS DNA POSITIVE (NEGATIVE); CANDIDA GLABRATA DNA NEGATIVE (NEGATIVE); CANDIDA GROUP DNA NEGATIVE (NEGATIVE); CANDIDA KRUSEI DNA NEGATIVE (NEGATIVE); TRICHOMONAS VAGINALIS DNA NEGATIVE (NEGATIVE)
== END 2021-03-29 23:59 | disposition home or self-care (01) ==
LOC: LAB.WC 08:00
PROVIDERS: ATTEND Obstetrics & Gynecology
DX: Z01.812 Encounter for preprocedural laboratory examination (principal); Z11.3 Encounter for screening for infections with a predominantly sexual mode of transmission
CPT/HCPCS: 87661; 87801

== ENCOUNTER 2021-04-08 18:54 | Outpatient (CLI) | payer MEDICAID | END 2021-04-08 18:55 | disposition home or self-care (01) | LOC: COV 18:54 | PROVIDERS: ATTEND Obstetrics & Gynecology | DX: Z01.812 Encounter for preprocedural laboratory examination (principal); D25.9 Leiomyoma of uterus, unspecified; N93.8 Other specified abnormal uterine and vaginal bleeding; N92.0 Excessive and frequent menstruation with regular cycle; E11.9 Type 2 diabetes mellitus without complications; Z20.822 Contact with and (suspected) exposure to COVID-19 ==

== ENCOUNTER 2021-04-13 06:33 | Day surgery (SDC) | payer MEDICAID ==
[2021-04-13] MEDS ORDERED: PHENAZOPYRIDINE 100 MG TABLET PO ONE (06:36)
[2021-04-13] MEDS ORDERED: CELECOXIB 100 MG CAPSULE PO ONE (06:36)
[2021-04-13] MEDS ORDERED: GABAPENTIN 400 MG CAPSULE ONE (06:36)
[2021-04-13] MEDS ORDERED: ACETAMINOPHEN 1,000 MG/100 ML 100 ML IV ONE (06:37)
[2021-04-13] MEDS ORDERED: ceFAZolin 2 GM/50 ML 2 GM/50 ML BAG IV ONE (06:37)
[2021-04-13] MEDS ORDERED: LACTATED RINGERS 1,000 ML IV ONE ×3 (06:40→12:57)
[2021-04-13 07:14] LABS: HCG UR QUAL NEGATIVE
[2021-04-13 07:23] LABS: BASOPHILS # (AUTO) 0.1 10^3/uL (0.0-0.1); BASOPHILS % (AUTO) 0.5 %; EOSINOPHILS # (AUTO) 0.2 10^3/uL (0.0-0.7); HCT - HEMATOCRIT 39.6 % (37.0-47.0); HGB - HEMOGLOBIN 12.5 g/dL (12.0-16.0); LYMPHOCYTES # (AUTO) 3.7 10^3/uL (1.5-3.5); LYMPHOCYTES % (AUTO) 36.9 %; MEAN CORPUSCULAR HEMOGLOBIN 25.2 pg (27.0-31.0); MEAN CORPUSCULAR HGB CONC 31.6 g/dL (32.0-36.0); MEAN CORPUSCULAR VOLUME 79.7 fL (81.0-99.0); MEAN PLATELET VOLUME 10.1 fL (7.9-10.8); MONOCYTES # (AUTO) 0.5 10^3/uL (0.0-1.0); MONOCYTES % (AUTO) 5.1 %; NEUTROPHILS # (AUTO) 5.5 10^3/uL (1.5-6.6); NEUTROPHILS % (AUTO) 55.1 %; PLT - PLATELET COUNT 384 10^3/uL (130-450); RED BLOOD COUNT 4.97 10^6/uL (4.20-5.40); RED CELL DISTRIBUTION WIDTH 14.9 % (12.0-15.0); WHITE BLOOD COUNT 9.9 x10^3/uL (4.8-10.8)
--- NOTE | 2021-04-13 07:36 | ANESTHESIA ---
Pre-Anesthesia VS, & Labs - Diagnosis Fibroids, DUB, heavy menstruation - Procedure total vaginal hysterectomy Vital Signs: Temp Pulse Resp BP Pulse Ox 36.4 C L 72 12 141/89 H 100 04/13/21 06:42 04/13/21 06:42 04/13/21 06:42 04/13/21 06:42 04/13/21 06:42 Height: 5 ft 2 in Weight (kg): 87.7 kg Body Mass Index: 35.3 BMI Classification: Obese - NPO >8 hours - Is Patient ?: No - Lab Results Current Lab Results: Laboratory Tests 04/13/21 07:28: POC Whole Bld Glucose 143 H 04/13/21 07:06: WBC 9.9, RBC 4.97, Hgb 12.5, Hct 39.6, MCV 79.7 L, MCH 25.2 L, MCHC 31.6 L, RDW 14.9, Plt Count 384, MPV 10.1, Neut # (Auto) 5.5, Lymph # (Auto) 3.7 H, [place] # (Auto) 0.5, Eos # (Auto) 0.2, Baso # (Auto) 0.1, Absolute Nucleated RBC 0.00, Nucleated RBC % 0.0 Fish Bones: 04/13/21 07:06 Home Medications and Allergies Home Medications: Ambulatory Orders metFORMIN [Glucophage] 1,000 mg PO BID 04/06/21 Albuterol [Ventolin Hfa] 2 puffs INH Q4H PRN 07/03/13 metFORMIN [Glucophage] 1,000 mg PO BID 04/06/21 Allergies/Adverse Reactions: Allergies Allergy/AdvReac Type Severity Reaction Status Date / Time No Known Drug Allergies Allergy Verified 01/13/21 16:50 Anes History & Medical History - Anesthetic History Anesthesia Complications: reports: No previous complications - Medical History Cardiovascular: reports: Hypertension Pulmonary: reports: Asthma (Last used inhalor last year) Gastrointestinal: reports: GERD (frequent, treats with tums) Urinary: reports: None Neuro: reports: None Musculoskeletal: reports: None Endocrine/Autoimmune: reports: Type 2 diabetes Blood Disorders: reports: Anemia Skin: reports: Eczema Smoking Status: Never smoker Psychosocial: reports: Other (PTSD) History of Cancer?: No - Surgical History Gynecologic: reports: Dilation and currettage, Tubal ligation Exam General: Alert, Oriented x3, Cooperative, No acute distress Dental: WNL Mouth Openin Fingerbreadth Neck Mobility: Normal Mallampati classification: I Thyromental Distance: 4-6 cm Mental/Cognitive Status: Alert/Oriented X3, Normal for patient Plan Anesthesia Type: General Consent for Procedure(s) Verified and Reviewed: Yes Code Status: Attempt Resuscitation ASA classification: 2-Mild systemic disease Is this case an emergency?: No
[2021-04-13] MEDS ORDERED: NALOXONE 0.4 MG/ML VIAL IVP PRN (07:42)
[2021-04-13] MEDS ORDERED: fentaNYL 100 MCG/2 ML VIAL IVP PRN (07:42)
[2021-04-13] MEDS ORDERED: ATROPINE ABBOJECT 1 MG/10 ML SYRINGE IVP PRN (07:42)
[2021-04-13] MEDS ORDERED: HYDROmorphone 0.5 MG/0.5 ML SYRINGE IVP PRN (07:42)
[2021-04-13] MEDS ORDERED: ONDANSETRON 4 MG/2 ML VIAL IVP PRN (07:42)
[2021-04-13] MEDS ORDERED: MORPHINE 2 MG/ML CARPUJECT IVP PRN (07:42)
[2021-04-13] MEDS ORDERED: LACTATED RINGERS 1,000 ML IV SCH (08:00)
[2021-04-13] MEDS ORDERED: MIDAZOLAM 2 MG/2 ML VIAL ONE (09:09)
[2021-04-13] MEDS ORDERED: PROPOFOL 200 MG/20 ML VIAL IVP ONE (09:09)
[2021-04-13] MEDS ORDERED: LIDOCAINE-MPF 2% 5 ML VIAL ONE (09:09)
[2021-04-13] MEDS ORDERED: fentaNYL 100 MCG/2 ML VIAL ONE (09:09)
[2021-04-13] MEDS ORDERED: ROCURONIUM 50 MG/5 ML VIAL ONE (09:11)
[2021-04-13] MEDS ORDERED: METHYLENE BLUE 0.5% 50 MG/10 ML AMPULE ONE (09:29)
[2021-04-13] MEDS ORDERED: VASOPRESSIN 20 UNIT/ML VIAL ONE (09:29)
[2021-04-13] MEDS ORDERED: BUPIVACAINE 0.5%-EPI 1:200000 PF 30 ML VIAL ONE (09:29)
[2021-04-13] MEDS ORDERED: HYDROmorphone 1 MG/ML CARPUJECT ONE (09:53)
[2021-04-13] MEDS ORDERED: VASOPRESSIN 20 UNIT/ML VIAL IVP ONE (11:01)
[2021-04-13] MEDS ORDERED: BUPIVACAINE 0.5%-EPI 1:200000 PF 30 ML VIAL SUBQ ONE (11:04)
[2021-04-13] MEDS ORDERED: METHYLENE BLUE 0.5% 50 MG/10 ML AMPULE IR ONE (11:04)
[2021-04-13] MEDS ORDERED: LIDOCAINE JELLY 2% 6 ML JEL.PF.APP UR ONE (11:58)
[2021-04-13] MEDS ORDERED: LIDOCAINE JELLY 2% 6 ML JEL.PF.APP ONE (12:00)
[2021-04-13] MEDS ORDERED: SUGAMMADEX 200 MG/2 ML VIAL IVP ONE (12:13)
[2021-04-13] MEDS ORDERED: ONDANSETRON 4 MG/2 ML VIAL ONE ×2 (12:13→12:56)
[2021-04-13] MEDS ORDERED: KETOROLAC 30 MG/ML VIAL ONE (12:13)
[2021-04-13] MEDS ORDERED: SCOPOLAMINE PATCH TOP PRN (12:44)
[2021-04-13] MEDS ORDERED: ONDANSETRON ODT 4 MG TABLET TL PRN (12:44)
--- NOTE | 2021-04-13 12:52 | OPERATIVE REPORT ---
Operative Report - General Procedure Date: 04/13/21 Planned Procedure: Total vaginal hysterectomy with bilateral salpingectomy and cystoscopy Pre-Op Diagnosis: Dysfunctional uterine bleeding with failed medical management Procedure Performed: Total vaginal hysterectomy and bilateral salpingectomy and cystoscopy Post Op Diagnosis: Same - Procedure Note Primary Surgeon: Jazmín Keita MD Secondary Surgeon: Edy Whitaker MD Anesthesia Provider: Gwendolyn Sandra CRNA Anesthesia Technique: General ET tube Pathology: Uterus with bilateral fallopian tubes (s/p ligation) with right tube intact and left tube sent in two segments, s/p transection from uterine attachment. Cystoscopy showed bilateral ureteral jets and survey of bladder showed absence of trauma or suture. IV Fluids (mL): 700 Estimated Blood Loss (mL): 70 Urine Output (mL): 250 Indications: Patient is a 45-year-old G6, P4 seen in clinic on several occasions for dysfunctional uterine bleeding. Please see prior clinic notes for details of bleeding history. She has tried norethindrone which only served to lengthen her episodes of bleeding. She was interested in an endometrial ablation. We discussed various risk factors and determined that she had a poor risk profile for endometrial ablation. She underwent a pelvic ultrasound which showed a poorly defined intramural fibroid. At a prior visit we started medroxyprogesterone. She found that it spiked her blood sugar and she felt terrible. She has prolonged bleeding, often with 2 cycles a month and more than weeks of flow at a time. She has undergone hsyteroscopy and D&C with Mirena IUD placement with suboptimal response. She desires definitive management with hysterectomy. Her last Pap smear was 10/19/2017 and was within normal limits. Findings: Mildly, enlarged boggy uterus with IUD in place. Strings visualized at the external os but the IUD was left in place. Fallopian tubes were s/p ligation but were mainly intact and removed with the uterus. Left ovary showed evidence of corpus luteum cyst, otherwise normal appearing. Cystoscopy showed bilateral ureteral jets and survey of the bladder was devoid of suture or trauma at close of procedure. Complications: None - Other Other Information/Narrative: Consent was again confirmed. The patient was brought to the OR and underweight general anesthesia. She was placed in dorsal lithotomy with legs supported in yellowfin stirrups. Bimanual exam was performed. She was then prepared and draped in the usual sterile fashion. Gutierrez catheter was in place and backfilled with 50 cc of dilute methylene blue and clamped. SCDs were confirmed to be in place and operating. A surgical time out was performed. Administration of 2g IV cefazolin was confirmed. A weighted speculum was placed in the posterior vaginal vault. IUD strings were noted but the IUD was left inside the uterus. The cervix was grasped with a a double toothed tenaculum clamp on both its anterior and posterior lips. A total of 20 cc of of 0.25% bupivicaine with epinephrine was injected into the utero sacral ligaments. A total of 20 cc of 10 mg vasopressin/50 cc was injected in a circumferential direction around the cervix. With downward traction, we made a circumferential incision of the vaginal epithelium at the junction of the cervix with the bovie cautery to aid entry into the peritoneum. The overlying vaginal epithelium was dissected off the underlying cervical stroma in an combination of sharp and blunt dissection. The cervicovesical space was then created by both blunt and sharp dissection. At no point was there spillage of methylene blue. Entrance into the anterior space was completed and a right angle retractor was inserted under the bladder. The posterior cul-de-sac was entered sharply in the same manner. A long necked weighted speculum was then placed in the vagina thro ugh the posterior space. The uterosacral ligaments were clamped with Santosh clamps and ligated with #0 Vicryl suture bilaterally. A moistened sponge stick was placed in the posterior cul de sac to retract the bowel and patient was placed in Trendelenburg position. A Santosh clamp was then used to clamp and suture ligate the left sided cardical ligament, suture ligated x2. A laparoscopic Ligasure bipolar device was readied and was then used to seal and ligate each remaining pedicle. The uterosacral ligaments were suture ligated as above. The cardinal ligaments, uterine vessels, broad ligaments, and utero- ovarian pedicles were sealed and ligated with the Ligasure device. The ovaries were visualized on either side. The fallopian tubes in the right were kept attached to the uterus, and the underlying mesosalpinx was sealed and ligated with the Ligasure, completing the salpingectomy on the right side. The left tube had been transected at the cornual insertion. The tubal remnant was grasped with Babacock clamps, elevated, and the underlying mesosalpinx was sealed and ligated using the Ligasure. The left tube was removed in two segments. All tubal fragments were sent as one specimen with the uterus and right sided fallopian tubes. Ovaries were inspected as with findings noted above. We then removed the weighted duckbill speculum and placed a regular speculum in the vaginal vault and visualized the entire area. We inspected for hemostasis, and this was secured. The peritoneum was closed with 2-0 Vicryl with a running pursestring suture. The uterosacral ligaments were then fixed to the anterior and posterior vaginal cuff margins to aid in vaginal support. The vaginal cuff was then closed with interrupted figure of 8 sutures using 0-Vicryl. Hemostasis was excellent. The vaginal vault was cleared of debris. The sponge count was correct times 2 at this time. A Gutierrez catheter was then unclamped. The bladder was drained and the Gutierrez was removed. The cystoscope was inserted and the bladder was distended with normal saline. The survey of all of the bladder surfaces was completed and was noted to be absent of suture or trauma. Ureteral jets were observed directly bilaterally. Bladder was drained and cystoscope was removed. Gutierrez catheter was replaced. All instruments were removed from the vagina and ivey hemostasis was noted. The patients procedure was terminated. She was sent to the Recovery Room in good condition. Dr. Whitaker assisted with retraction, assistance with suturing, cystoscopy, and sharing of surgical insight.
[2021-04-13] MEDS ORDERED: HYDROmorphone 0.5 MG/0.5 ML SYRINGE ONE (12:56)
[2021-04-13] MEDS ORDERED: KETOROLAC 30 MG/ML VIAL IVP SCH (13:00)
--- NOTE | 2021-04-13 13:27 | ANESTHESIA POST OP EVALUATION ---
Anesthesia Post Eval - Post Anesthesia Eval Vitals: Last Vital Signs Temp 36.6 C 04/13/21 13:05 Pulse 74 04/13/21 13:05 Resp 16 04/13/21 13:05 BP 129/83 H 04/13/21 13:05 Pulse Ox 100 04/13/21 13:05 CV Function Including HR & BP: Stable Pain Control: Satisfactory Nausea & Vomiting: Negative Mental Status: Baseline Respiratory Status: Airway Patent Hydration Status: Satisfactory Anesthesia Complications: None
[2021-04-13] MEDS: LACTATED RINGERS 1,000 ML IV SCH ×2 (13:59→19:28)
[2021-04-13] MEDS: GABAPENTIN 300 MG CAPSULE PO SCH ×2 (14:00→20:54)
[2021-04-13] MEDS: SIMETHICONE CHEW 80 MG TABLET PO PRN ×2 (16:55→21:03)
[2021-04-13] MEDS: ACETAMINOPHEN 500 MG TABLET PO SCH (16:55)
[2021-04-13] MEDS: INSULIN ASPART 300 UNIT/3 ML PEN SUBQ SCH ×2 (16:56→20:53)
[2021-04-13] MEDS: KETOROLAC 30 MG/ML VIAL IVP SCH (18:18)
[2021-04-13] MEDS ORDERED: LIDOCAINE JELLY 2% 6 ML JEL.PF.APP TOP PRN (19:38)
[2021-04-13] MEDS: PHENAZOPYRIDINE 100 MG TABLET PO SCH (20:20)
[2021-04-13] MEDS: DOCUSATE SODIUM 100 MG CAPSULE PO SCH (20:20)
[2021-04-13] MEDS: HYDROmorphone 1 MG/ML CARPUJECT IVP PRN (20:54)
[2021-04-13] MEDS ORDERED: BENZOCAINE/MENTHOL LOZENGE MM PRN (22:41)
[2021-04-13] MEDS ORDERED: PHENOL THROAT SPRAY 177 ML MM PRN (22:49)
[2021-04-14] MEDS: ACETAMINOPHEN 500 MG TABLET PO SCH ×2 (00:02→08:55)
[2021-04-14] MEDS: KETOROLAC 30 MG/ML VIAL IVP SCH ×3 (00:02→11:50)
[2021-04-14] MEDS: HYDROmorphone 1 MG/ML CARPUJECT IVP PRN ×2 (00:06→03:03)
[2021-04-14] MEDS: SIMETHICONE CHEW 80 MG TABLET PO PRN (04:57)
[2021-04-14] MEDS: PHENAZOPYRIDINE 100 MG TABLET PO SCH ×2 (04:57→14:27)
[2021-04-14] MEDS: GABAPENTIN 300 MG CAPSULE PO SCH ×2 (05:01→14:27)
[2021-04-14] MEDS: LACTATED RINGERS 1,000 ML IV SCH (05:08)
[2021-04-14 06:05] LABS: BASOPHILS % (AUTO) 0.3 %; EOSINOPHILS # (AUTO) 0.3 10^3/uL (0.0-0.7); EOSINOPHILS % (AUTO) 2.7 %; HCT - HEMATOCRIT 36.3 % (37.0-47.0); HGB - HEMOGLOBIN 11.1 g/dL (12.0-16.0); LYMPHOCYTES # (AUTO) 3.5 10^3/uL (1.5-3.5); LYMPHOCYTES % (AUTO) 38.5 %; MEAN CORPUSCULAR HEMOGLOBIN 24.9 pg (27.0-31.0); MEAN CORPUSCULAR HGB CONC 30.6 g/dL (32.0-36.0); MEAN CORPUSCULAR VOLUME 81.4 fL (81.0-99.0); MEAN PLATELET VOLUME 10.2 fL (7.9-10.8); MONOCYTES # (AUTO) 0.4 10^3/uL (0.0-1.0); MONOCYTES % (AUTO) 4.8 %; NEUTROPHILS # (AUTO) 4.9 10^3/uL (1.5-6.6); NEUTROPHILS % (AUTO) 53.3 %; PLT - PLATELET COUNT 328 10^3/uL (130-450); RED BLOOD COUNT 4.46 10^6/uL (4.20-5.40); WHITE BLOOD COUNT 9.2 x10^3/uL (4.8-10.8)
[2021-04-14 06:15] LABS: CALCIUM 8.3 mg/dL (8.5-10.3); CREATININE 0.7 mg/dL (0.4-1.0); POTASSIUM 3.7 mmol/L (3.5-5.0)
[2021-04-14] MEDS ORDERED: BISACODYL 10 MG SUPP PR PRN (08:27)
--- NOTE | 2021-04-14 08:33 | PROVIDER PROGRESS NOTE ---
Subjective - Prog Note Date Prog Note Date: 04/14/21 Prog Note Time: 08:31 - Subjective Subjective: Patient notes 8/10 abdominal pain, improved to 5/10 with medications. Feels bloated and gassy but is tolerating po wihtout N/V. has had some flatus. Feels she will be ready for discharge if she can have a bowel movement. Open to bisacodyl suppository. Gutierrez removed and has voided x4. Objective - Vital Signs/Intake & Output Reviewed Vital Signs: Yes Vital Signs: Vital Signs x48h Temp Pulse Resp BP Pulse Ox 04/14/21 07:41 98.2 F 72 18 114/73 97 04/14/21 04:02 97.5 F L 75 20 145/82 H 100 Intake & Output: Intake & Output 04/11/21 04/12/21 04/13/21 04/14/21 23:59 23:59 23:59 23:59 Intake Total 1540 1606.667 Output Total 995 1100 Balance 545 506.667 - Objective General Appearance: positive: No acute distress Respiratory: positive: No respiratory distress Cardiovascular: positive: Other (RR) Abdomen: positive: Other (S&NT/ND) Skin: positive: Color nml, No rash, Warm Extremities: positive: Non-tender, No pedal edema Neurologic/Psychiatric: positive: Oriented x3 - Lab Results Fish Bones: 04/14/21 05:42 04/14/21 05:42 Other Labs: Lab Results x24hrs 04/14/21 04/14/21 04/14/21 Range/Units 07:35 05:42 05:42 WBC 9.2 (4.8-10.8) x10^3/uL RBC 4.46 (4.20-5.40) 10^6/uL Hgb 11.1 L (12.0-16.0) g/dL Hct 36.3 L (37.0-47.0) % MCV 81.4 (81.0-99.0) fL MCH 24.9 L (27.0-31.0) pg MCHC 30.6 L (32.0-36.0) g/dL RDW 15.0 (12.0-15.0) % Plt Count 328 (130-450) 10^3/uL MPV 10.2 (7.9-10.8) fL Neut # (Auto) 4.9 (1.5-6.6) 10^3/uL Lymph # (Auto) 3.5 (1.5-3.5) 10^3/uL Antelope # (Auto) 0.4 (0.0-1.0) 10^3/uL Eos # (Auto) 0.3 (0.0-0.7) 10^3/uL Baso # (Auto) 0.0 (0.0-0.1) 10^3/uL Absolute Nucleated RBC 0.00 x10^3/uL Nucleated RBC % 0.0 /100WBC Sodium 137 (135-145) mmol/L Potassium 3.7 (3.5-5.0) mmol/L Chloride 104 (101-111) mmol/L Carbon Dioxide 24 (21-32) mmol/L Anion Gap 9.0 (6-13) BUN 5 L (6-20) mg/dL Creatinine 0.7 (0.4-1.0) mg/dL Estimated GFR (MDRD) 110 (>89) Glucose 124 H (70-100) mg/dL POC Whole Bld Glucose 109 H (70 - 100) mg/dL Calcium 8.3 L (8.5-10.3) mg/dL Blood Type Antibody Screen 04/13/21 04/13/21 04/13/21 Range/Units 20:24 16:52 07:31 WBC (4.8-10.8) x10^3/uL RBC (4.20-5.40) 10^6/uL Hgb (12.0-16.0) g/dL Hct (37.0-47.0) % MCV (81.0-99.0) fL MCH (27.0-31.0) pg MCHC (32.0-36.0) g/dL RDW (12.0-15.0) % Plt Count (130-450) 10^3/uL MPV (7.9-10.8) fL Neut # (Auto) (1.5-6.6) 10^3/uL Lymph # (Auto) (1.5-3.5) 10^3/uL Antelope # (Auto) (0.0-1.0) 10^3/uL Eos # (Auto) (0.0-0.7) 10^3/uL Baso # (Auto) (0.0-0.1) 10^3/uL Absolute Nucleated RBC x10^3/uL Nucleated RBC % /100WBC Sodium (135-145) mmol/L Potassium (3.5-5.0) mmol/L Chloride (101-111) mmol/L Carbon Dioxide (21-32) mmol/L Anion Gap (6-13) BUN (6-20) mg/dL Creatinine (0.4-1.0) mg/dL Estimated GFR (MDRD) (>89) Glucose (70-100) mg/dL POC Whole Bld Glucose 158 H 94 (70 - 100) mg/dL Calcium (8.5-10.3) mg/dL Blood Type B POSITIVE Antibody Screen NEGATIVE Assessment/Plan - Problem List (1) Status post vaginal hysterectomy Impression: Overall doing well but does not feel pain is adequately managed Would like to clear bowels prior to DC Open to bisacodyl suppository Ordered this am. Will check in a noon for possible DC.
[2021-04-14] MEDS: INSULIN ASPART 300 UNIT/3 ML PEN SUBQ SCH ×2 (08:54→11:49)
[2021-04-14] MEDS: HYDROmorphone 2 MG TABLET PO PRN ×2 (08:56→14:28)
[2021-04-14] MEDS: DOCUSATE SODIUM 100 MG CAPSULE PO SCH (08:56)
[2021-04-14] MEDS ORDERED: ENOXAPARIN 40 MG/0.4 ML SYRINGE SUBQ SCH (09:00)
[2021-04-14 14:44] VITALS: BP 142/78
== END 2021-04-14 15:05 | disposition home or self-care (01) ==
LOC: SDS 06:33 → MS2 13:39 → SDS 04-14 15:05
PROVIDERS: ATTEND Obstetrics & Gynecology
PROC: 0UT77ZZ Resection of Bilateral Fallopian Tubes, Via Natural or Artificial Opening (ICD-10-PCS; 2021-04-13)
PROC: 0UT97ZZ Resection of Uterus, Via Natural or Artificial Opening (ICD-10-PCS; principal; 2021-04-13 07:30)
DX: N93.8 Other specified abnormal uterine and vaginal bleeding (principal); D25.1 Intramural leiomyoma of uterus; N72 Inflammatory disease of cervix uteri; N92.0 Excessive and frequent menstruation with regular cycle; E66.9 Obesity, unspecified; Z68.35 Body mass index [BMI] 35.0-35.9, adult; D64.9 Anemia, unspecified
CPT/HCPCS: 36415; 58262; 80048; 81025; 85025; 86850; 86900; 86901; A9270; J0131; J0690; J1170; J1650; J7120

== ENCOUNTER 2021-04-28 08:00 | Outpatient (CLI) | payer MEDICAID ==
[2021-04-28 16:19] LABS: BILIRUBIN,URINE NEGATIVE (NEGATIVE); GLUCOSE, URINE (UA) NEGATIVE (NEGATIVE); KETONES,URINE (UA) NEGATIVE (NEGATIVE); LEUKOCYTE ESTERASE, URINE NEGATIVE (NEGATIVE); NITRITE,URINE NEGATIVE (NEGATIVE); OCCULT BLOOD,URINE LARGE (NEGATIVE); PROTEIN,URINE NEGATIVE (NEGATIVE); UROBILINOGEN,URINE 0.2 (NORMAL) E.U./dL (NORMAL)
[2021-04-28 16:25] LABS: AMORPHOUS SEDIMENT,UR Marked /LPF; BACTERIA,URINE Rare /HPF (None Seen); CLARITY,URINE CLOUDY (CLEAR); SQUAMOUS EPITHELIAL CELL,UR FEW Squamous (<= Few); WBC,URINE 0-3 /HPF (0-5)
== END 2021-04-28 23:59 | disposition home or self-care (01) ==
LOC: LAB.WC 08:00
PROVIDERS: ATTEND Obstetrics & Gynecology
DX: Z09 Encounter for follow-up examination after completed treatment for conditions other than malignant neoplasm (principal); R10.2 Pelvic and perineal pain
CPT/HCPCS: 81001; 87086

== ENCOUNTER 2021-04-28 10:58 | Outpatient (CLI) | payer MEDICAID ==
[2021-04-28 11:24] LABS: HCT - HEMATOCRIT 39.7 % (37.0-47.0); HGB - HEMOGLOBIN 12.5 g/dL (12.0-16.0); MEAN CORPUSCULAR HEMOGLOBIN 25.2 pg (27.0-31.0); MEAN CORPUSCULAR HGB CONC 31.5 g/dL (32.0-36.0); MEAN PLATELET VOLUME 10.1 fL (7.9-10.8); RED BLOOD COUNT 4.96 10^6/uL (4.20-5.40); RED CELL DISTRIBUTION WIDTH 14.4 % (12.0-15.0); WHITE BLOOD COUNT 11.8 x10^3/uL (4.8-10.8)
[2021-04-28 11:38] LABS: ALBUMIN/GLOBULIN RATIO 1.1 (1.0-2.2); BILIRUBIN,TOTAL 0.5 mg/dL (0.2-1.0); CALCIUM 9.2 mg/dL (8.5-10.3); CREATININE 0.8 mg/dL (0.4-1.0); POTASSIUM 4.2 mmol/L (3.5-5.0); TOTAL PROTEIN 7.7 g/dL (6.7-8.2)
== END 2021-04-28 10:59 | disposition home or self-care (01) ==
LOC: LAB 10:58
PROVIDERS: ATTEND Obstetrics & Gynecology
DX: Z09 Encounter for follow-up examination after completed treatment for conditions other than malignant neoplasm (principal); R10.2 Pelvic and perineal pain
CPT/HCPCS: 36415; 80053; 81001; 85027; 87086

== ENCOUNTER 2021-05-03 08:00 | Outpatient (CLI) | payer MEDICAID ==
[2021-05-03 12:02] LABS: CREATININE,URINE 132.5 mg/dL; MICROALBUM/CREATININE RATIO,UR 7.5 ug/mg (<30.0)
[2021-05-03 12:19] LABS: BUN - BLOOD UREA NITROGEN 8 mg/dL (6-20); CALCIUM 9.1 mg/dL (8.5-10.3); CARBON DIOXIDE - CO2 26 mmol/L (21-32); CHLORIDE 103 mmol/L (101-111); CHOLESTEROL 132 mg/dL; CREATININE 0.7 mg/dL (0.4-1.0); GFR - MDRD 110 (>89); GLUCOSE 198 mg/dL (70-100); HDL CHOLESTEROL 44 mg/dL; LDL CHOLESTEROL,CALCULATED 65 mg/dL; LDL/HDL RATIO 1.5 (<4.4); POTASSIUM 4.1 mmol/L (3.5-5.0); SODIUM 140 mmol/L (135-145); TRIGLYCERIDES 117 mg/dL; VLDL CHOLESTEROL 23 mg/dL
[2021-05-03 12:22] LABS: ESTIMATED AVERAGE GLUCOSE 171 mg/dL (70-100); HEMOGLOBIN A1c% 7.6 % (4.27-6.07)
== END 2021-05-03 23:59 | disposition home or self-care (01) ==
LOC: LAB.WCP 08:00
PROVIDERS: ATTEND Physician Assistant Medical
DX: E11.9 Type 2 diabetes mellitus without complications (principal)
CPT/HCPCS: 36415; 80048; 80061; 82043; 82570; 83036; 83721

== ENCOUNTER 2021-05-25 16:40 | Outpatient (CLI) | payer MEDICAID | END 2021-05-25 16:41 | disposition home or self-care (01) | LOC: COV 16:40 | PROVIDERS: ATTEND Family Medicine | DX: U07.1 COVID-19 (principal) ==

== ENCOUNTER 2021-05-31 08:00 | Outpatient (CLI) | payer MEDICAID ==
--- NOTE | 2021-05-31 16:01 | XRAY Report ---
PROCEDURE: Chest 2 View X-Ray INDICATIONS: COVID+, SHORTNESS OF BREATH-UNVACCINATED TECHNIQUE: 2 view(s) of the chest. COMPARISON: None. FINDINGS: Surgical changes and devices: None. Lungs and pleura: No pleural effusions or pneumothorax. Lungs are clear. Mediastinum: Mediastinal contours are normal. Heart size is normal. Bones and chest wall: No suspicious bony abnormalities. Soft tissues appear unremarkable. IMPRESSION: No acute cardiopulmonary process demonstrated radiographically. Reviewed by: José Faust MD on 05/31/2021 4:00 PM PDT Approved by: José Faust MD on 05/31/2021 4:00 PM PDT Station ID: [id number]
== END 2021-05-31 23:59 | disposition home or self-care (01) ==
LOC: DI.S 08:00
PROVIDERS: ATTEND Physician Assistant Medical
DX: U07.1 COVID-19 (principal); R06.02 Shortness of breath

== ENCOUNTER 2021-05-31 17:06 | Emergency (ER) | payer MEDICAID ==
[2021-05-31] MEDS ORDERED: CASIRIVIMAB/IMDEVIMAB 10 ML in SODIUM CHLORIDE 0.9% 50 ML IV ONE (19:00)
--- NOTE | 2021-05-31 19:43 | ED Physician Documentation ---
PD HPI DYSPNEA - Stated complaint Stated Complaint: C+ SOA - Chief complaint Chief Complaint: Resp - History obtained from History obtained from: Patient - Additional information Additional information: 45-year-old woman with recent diagnosis of Covid was sent to the emergency department for antibody therapy. Walk-in clinic physician called ahead stating multiple times the patient had been symptomatic less than 10 days. Patient states she originally became symptomatic on May 15 and has persistent shortness of breath and cough. Chest x-ray done at walk-in clinic was negative. She has not been vaccinated against Covid. 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 : None HEENT: Chronic vision loss Psych: Panic attacks, Post traumatic stress disorder, Claustrophobia Musculoskeletal: None Derm: Eczema - Past Surgical History Past Surgical History: No /DISTRIBUTOR OPERATOR: Dilation and currettage, Tubal ligation - Present Medications Home Medications: Ambulatory Orders Medication Instructions Recorded Confirmed Albuterol [Ventolin Hfa] 2 puffs INH Q4H PRN 07/03/13 04/06/21 metFORMIN [Glucophage] 1,000 mg PO BID 04/06/21 04/13/21 Acetaminophen [Acetaminophen Extra 1,000 mg PO Q8H PRN #60 tablet 04/13/21 Strength] Docusate Sodium 100Mg Capsule 100 - 200 mg PO BID PRN #60 cap 04/13/21 [Colace 100Mg Capsule] Gabapentin [Neurontin] 300 mg PO TID #60 04/13/21 HYDROmorphone [Dilaudid] 2 mg PO Q4H PRN #24 tablet 04/13/21 Ibuprofen [Motrin] 600 mg PO Q6H PRN #60 tab 04/13/21 Gabapentin [Neurontin] 300 mg PO TID PRN #60 cap 04/14/21 - Allergies Allergies/Adverse Reactions: Allergies Allergy/AdvReac Type Severity Reaction Status Date / Time No Known Drug Allergies Allergy Verified 05/31/21 18:00 - Social History Does the pt smoke?: No Smoking Status: Never smoker Does the pt drink ETOH?: Yes Does the pt have substance abuse?: No - Immunizations Immunizations are current?: Yes - POLST Patient has POLST: No PD ED PE NORMAL - Vitals Vital signs reviewed: Yes - General General: Alert and oriented X 3, No acute distress - Neck Neck: Supple, no meningeal sign, No bony TTP - Cardiac Cardiac: RRR, No murmur - Respiratory Respiratory: No respiratory distress, Clear bilaterally - Abdomen Abdomen: Non tender - Back Back: No CVA TTP, No spinal TTP - Extremities Extremities: No edema, No calf tenderness / cord - Neuro Neuro: Alert and oriented X 3, Normal speech Results - Vitals Vitals: Vital Signs - 24 hr 05/31/21 05/31/21 05/31/21 18:00 19:31 19:43 Temperature 37.4 C 37.4 C Heart Rate 87 87 79 Respiratory 24 24 20 Rate Blood Pressure 137/95 H 137/95 H 131/110 H O2 Saturation 98 98 100 Oxygen O2 Source Room air PD MEDICAL DECISION MAKING - ED course ED course: Discussed with the patient that unfortunately the report from the walk-in clinic physician was incorrect, since she has been symptomatic more than 10 days she does not fit criteria for antibody therapy. Unfortunately the antibody therapy had already been mixed up by the pharmacist trusting that the report from the walk-in clinic was correct given that it was close to the time that the pharmacist left the building and will have to be wasted. X-ray from earlier in the day was reviewed and negative. Departure - Departure Disposition: 01 Home, Self Care Clinical Impression: COVID-19 Condition: Good Record reviewed to determine appropriate education?: Yes Instructions: ED Viral Syndrome Comments: Since you are still symptomatic, you still need to quarantine until 24 hours has passed after your symptoms have resolved. Return for new or worsening symptoms.
[2021-05-31 19:44] VITALS: BP 131/110
== END 2021-05-31 19:55 | disposition home or self-care (01) ==
LOC: ED 17:06
DX: U07.1 COVID-19 (principal); R06.02 Shortness of breath; R05.9 Cough, unspecified; I10 Essential (primary) hypertension; E11.9 Type 2 diabetes mellitus without complications; Z79.84 Long term (current) use of oral hypoglycemic drugs
CPT/HCPCS: 99281; 99282; J7040; Q0244

== ENCOUNTER 2021-09-03 16:19 | Outpatient (CLI) | payer MEDICAID ==
[2021-09-04] LABS: CHLAMYDIA TRACHOMATIS DNA NEGATIVE (NEGATIVE); NEISSERIA GONORRHOEAE DNA NEGATIVE (NEGATIVE); TRICHOMONAS VAGINALIS DNA NEGATIVE (NEGATIVE)
== END 2021-09-03 23:59 | disposition home or self-care (01) ==
LOC: LAB 16:19
PROVIDERS: ATTEND Physician Assistant Medical
DX: R10.2 Pelvic and perineal pain (principal)
CPT/HCPCS: 87491; 87591; 87661

== ENCOUNTER 2021-09-17 08:45 | Outpatient (CLI) | payer MEDICAID ==
--- NOTE | 2021-09-17 14:54 | Ultrasound Report ---
PROCEDURE: Pelvic w/Transvaginal INDICATIONS: PELVIC PAIN TECHNIQUE: Real-time scanning was performed of the pelvic organs, with image documentation. Additional endovagi nal scanning was necessary due to incomplete visualization of the adnexal and endometrial structures by transabdominal scanning. COMPARISON: CT abdomen pelvis 01/13/2021, ultrasound pelvis 12/23/19. FINDINGS: Uterus: The uterus is surgically absent. Ovaries: The right ovary measures 3.5 x 1.9 x 2.1 cm for a volume of 5.2 mL and the left ovary measu res 2.5 x 2.2 x 2.1 cm with a volume of 8.1 mL. Visualization of the left ovary is limited by adjacen t bowel. There are a few small follicles within each ovary. No discrete adnexal mass identified. A small amount of free fluid is demonstrated within the pelvis. IMPRESSION: 1. No adnexal mass identified. Reviewed by: Kal Rothman MD on 09/17/2021 2:53 PM PST Approved by: Kal Rothman MD on 09/17/2021 2:53 PM PST Station ID: [id number]
== END 2021-09-17 08:46 | disposition home or self-care (01) ==
LOC: DI 08:45
PROVIDERS: ATTEND Physician Assistant Medical
DX: R10.2 Pelvic and perineal pain (principal)

== ENCOUNTER 2021-10-13 08:00 | Outpatient (CLI) | payer MEDICAID ==
--- NOTE | 2021-10-13 16:20 | XRAY Report ---
PROCEDURE: Hand 3 View LT INDICATIONS: CONTUSION OF L HAND TECHNIQUE: 3 views of the hand acquired. COMPARISON: None. FINDINGS: Bones: No acute fractures or dislocations. No suspicious bony lesions. Soft tissues: No suspicious soft tissue calcifications. IMPRESSION: No acute osseous abnormality. If there is clinical concern or persistent symptoms, additional imaging such as repeat radiographs or advanced imaging (e.g. CT, MRI) may be helpful for further evaluation. Reviewed by: Rafa Hubbard MD on 10/13/2021 4:18 PM PST Approved by: Rafa Hubbard MD on 10/13/2021 4:18 PM PST Station ID: [id number]
== END 2021-10-13 23:59 | disposition home or self-care (01) ==
LOC: DI.N 08:00
PROVIDERS: ATTEND Family Medicine
DX: S60.222A Contusion of left hand, initial encounter (principal)

== ENCOUNTER 2021-12-02 13:19 | Emergency (ER) | payer MEDICAID ==
--- NOTE | 2021-12-02 15:19 | ED Physician Documentation ---
History of Present Illness - Stated complaint Stated Complaint: NECK AND ARM PX - Chief complaint Chief Complaint: Ext Problem - History obtained from History obtained from: Patient - Additonal information Additional information: The patient comes to the emergency department chief complaint of bilateral wrist pain. She states that she has had ongoing left wrist pain after an injury and that this radiates up to her elbow and shoulder. She states her bicep feels tight. The patient is currently in physical therapy for this and that she has had some improvement though does seem to be persistent. Patient states that yesterday, she was breaking down some boxes and began to notice that her wrists were starting to hurt, including her right wrist which was not previously injured. Patient states that she had increasing pain overnight and that today, she tried taking ibuprofen and half of an oxycodone because it hurts so much and that she did not find any relief from this. Patient states she feels a "knot" just to the volar aspect of her ulnar styloid area. She denies any direct trauma. No popping, clicking, or snapping. No numbness or tingling. No involvement of her hand, fingers, or proximal upper extremity. The patient has no existing diagnoses of rheumatoid arthritis or lupus, and no history of osteoarthritis. Review of Systems Ten Systems: 10 systems reviewed and negative Constitutional: reports: Reviewed and negative Eyes: reports: Reviewed and negative Ears: reports: Reviewed and negative Nose: reports: Reviewed and negative Throat: reports: Reviewed and negative Cardiac: reports: Reviewed and negative Respiratory: reports: Reviewed and negative GI: reports: Reviewed and negative : reports: Reviewed and negative Skin: reports: Reviewed and negative Musculoskeletal: reports: Joint pain Neurologic: reports: Reviewed and negative Psychiatric: reports: Reviewed and negative Endocrine: reports: Reviewed and negative Immunocompromised: reports: Reviewed and negative PD PAST MEDICAL HISTORY - Past Medical History Past Medical History: Yes Cardiovascular: Hypertension Respiratory: Asthma Neuro: None Endocrine/Autoimmune: Type 2 diabetes GI: GERD 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 HEENT: Chronic vision loss Psych: Panic attacks, Post traumatic stress disorder, Claustrophobia Musculoskeletal: None Derm: Eczema - Past Surgical History Past Surgical History: No /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: Dilation and currettage, Tubal ligation - Present Medications Home Medications: Ambulatory Orders Medication Instructions Recorded Confirmed Albuterol [Ventolin Hfa] 2 puffs INH Q4H PRN 07/03/13 04/06/21 metFORMIN [Glucophage] 1,000 mg PO BID 04/06/21 04/13/21 Acetaminophen [Acetaminophen Extra 1,000 mg PO Q8H PRN #60 tablet 04/13/21 Strength] Docusate Sodium 100Mg Capsule 100 - 200 mg PO BID PRN #60 cap 04/13/21 [Colace 100Mg Capsule] Gabapentin [Neurontin] 300 mg PO TID #60 04/13/21 HYDROmorphone [Dilaudid] 2 mg PO Q4H PRN #24 tablet 04/13/21 Ibuprofen [Motrin] 600 mg PO Q6H PRN #60 tab 04/13/21 Gabapentin [Neurontin] 300 mg PO TID PRN #60 cap 04/14/21 Gabapentin [Neurontin] 300 mg PO TID #10 cap 12/02/21 - Allergies Allergies/Adverse Reactions: Allergies Allergy/AdvReac Type Severity Reaction Status Date / Time No Known Drug Allergies Allergy Verified 12/02/21 13:26 - Social History Does the pt smoke?: No Smoking Status: Never smoker Does the pt drink ETOH?: Yes Does the pt have substance abuse?: No - Immunizations Immunizations are current?: Yes - POLST Patient has POLST: No PD ED PE NORMAL - Vitals Vital signs reviewed: Yes - General General: Alert and oriented X 3, No acute distress, Well developed/nourished - HEENT HEENT: Atraumatic, PERRL, EOMI, Moist mucous membranes - Neck Neck: Supple, no meningeal sign - Cardiac Cardiac: Strong equal pulses - Respiratory Respiratory: No respiratory distress - Derm Derm: Normal color, Warm and dry, No rash - Extremities Extremities: No deformity, No edema, Other (Mildly decreased range of motion right wrist. No deformity. No mass. No tenderness of her right hand or fingers. No swelling.) - Neuro Neuro: Alert and oriented X 3 - Psych Psych: Normal mood, Normal affect Results - Vitals Vitals: Oxygen O2 Source Room air - Rads (name of study) R wrist xr Radiology: Final report received, EMP read indepedently, See rad report PD MEDICAL DECISION MAKING - ED course Complexity details: reviewed results, re-evaluated patient, considered differential, d/w patient ED course: X-ray of right wrist was performed, and negative. We have discussed the need to continue follow up with her PCP and PT. Departure - Departure Disposition: 01 Home, Self Care Clinical Impression: Wrist pain, right Condition: Stable Instructions: ED Sprain Wrist Prescriptions: Gabapentin [Neurontin] 300 mg PO TID #10 cap Comments: Your x-ray looks good. It is not clear why you are having some any inflammatory issues with your joints, but at this point in time, there is no evidence of an acute injury. You are already on ibuprofen and oxycodone, and there is really nothing stronger to add for pain. You may take more of your oxycodone then you were, or you may add Gabapentin. Please follow-up with your primary doctor to discuss further management. Discharge Date/Time: 12/02/21 16:17
--- NOTE | 2021-12-02 15:44 | XRAY Report ---
PROCEDURE: Wrist 3 View RT INDICATIONS: wrist pain, decreased ROM TECHNIQUE: 3 views of the wrist were acquired. COMPARISON: None FINDINGS: Bones: No fractures or dislocations. No suspicious bony lesions. Soft tissues: No suspicious soft tissue calcifications. IMPRESSION: No fracture. No osseous lesion. If there are persistent symptoms or continued clinical concern for pa thology, then repeat plain film radiographs (7-10 days) or advanced imaging (CT, MR, bone scan) shoul d be considered for further evaluation. Reviewed by: Brooke Dawson MD, PhD on 12/02/2021 3:43 PM PDT Approved by: Brooke Dawson MD, PhD on 12/02/2021 3:43 PM PDT Station ID: [id number]
[2021-12-02 16:18] VITALS: BP 149/80
== END 2021-12-02 16:17 | disposition home or self-care (01) ==
LOC: ED 13:19
DX: M25.531 Pain in right wrist (principal); E11.9 Type 2 diabetes mellitus without complications; Z79.84 Long term (current) use of oral hypoglycemic drugs
CPT/HCPCS: 99282; 99283

== ENCOUNTER 2021-12-21 08:09 | Outpatient (CLI) | payer OTHER ==
--- NOTE | 2021-12-22 09:31 | XRAY Report ---
PROCEDURE: Hand 3 View LT INDICATIONS: CONTUSION OF L HAND TECHNIQUE: 3 views of the hand(s) acquired. COMPARISON: None FINDINGS: Bones: No fractures or dislocations. No suspicious bony lesions. Soft tissues: No suspicious soft tissue calcifications. IMPRESSION: No fracture. No osseous lesion. If symptoms and/or clinical concern for pathology persists, further a ssessment with repeat plain film radiographs (7-10 days) or advanced imaging (CT, MR, bone scan) shou ld be considered. Reviewed by: Brooke Dawson MD, PhD on 12/22/2021 9:30 AM PDT Approved by: Brooke Dawson MD, PhD on 12/22/2021 9:30 AM PDT Station ID: [id number]
--- NOTE | 2021-12-22 09:37 | XRAY Report ---
PROCEDURE: Wrist 3 View LT INDICATIONS: CONTUSION OF L HAND TECHNIQUE: 3 views of the wrist were acquired. COMPARISON: None FINDINGS: Bones: No fractures or dislocations. No suspicious bony lesions. Soft tissues: No suspicious soft tissue calcifications. IMPRESSION: No fracture. No osseous lesion. If symptoms and/or clinical concern for pathology persists, further a ssessment with repeat plain film radiographs (7-10 days) or advanced imaging (CT, MR, bone scan) shou ld be considered. Reviewed by: Brooke Dawson MD, PhD on 12/22/2021 9:36 AM PDT Approved by: Brooke Dawson MD, PhD on 12/22/2021 9:36 AM PDT Station ID: [id number]
== END 2021-12-21 08:10 | disposition home or self-care (01) ==
LOC: DI.N 08:09
PROVIDERS: ATTEND Physician Assistant Medical
DX: S60.222A Contusion of left hand, initial encounter (principal)

== ENCOUNTER 2022-05-16 11:25 | Emergency (ER) | payer MEDICAID, OTHER ==
[2022-05-16 11:50] LABS: BASOPHILS % (AUTO) 0.2 %; EOSINOPHILS # (AUTO) 0.1 10^3/uL (0.0-0.7); EOSINOPHILS % (AUTO) 1.3 %; HCT - HEMATOCRIT 39.4 % (37.0-47.0); HGB - HEMOGLOBIN 12.6 g/dL (12.0-16.0); LYMPHOCYTES # (AUTO) 3.7 10^3/uL (1.5-3.5); LYMPHOCYTES % (AUTO) 34.4 %; MEAN CORPUSCULAR HEMOGLOBIN 25.5 pg (27.0-31.0); MEAN CORPUSCULAR VOLUME 79.6 fL (81.0-99.0); MEAN PLATELET VOLUME 9.8 fL (7.9-10.8); MONOCYTES # (AUTO) 0.5 10^3/uL (0.0-1.0); MONOCYTES % (AUTO) 4.5 %; NEUTROPHILS # (AUTO) 6.4 10^3/uL (1.5-6.6); NEUTROPHILS % (AUTO) 59.2 %; PLT - PLATELET COUNT 364 10^3/uL (130-450); RED BLOOD COUNT 4.95 10^6/uL (4.20-5.40); RED CELL DISTRIBUTION WIDTH 13.5 % (12.0-15.0); WHITE BLOOD COUNT 10.8 x10^3/uL (4.8-10.8)
[2022-05-16 12:03] LABS: ALBUMIN 3.9 g/dL (3.2-5.5); ALBUMIN/GLOBULIN RATIO 1.3 (1.0-2.2); BILIRUBIN,TOTAL 0.5 mg/dL (0.2-1.0); CALCIUM 9.1 mg/dL (8.5-10.3); CREATININE 0.6 mg/dL (0.4-1.0); POTASSIUM 4.1 mmol/L (3.5-5.0)
[2022-05-16] MEDS ORDERED: ONDANSETRON 4 MG/2 ML VIAL IVP STA (12:23)
[2022-05-16] MEDS ORDERED: SODIUM CHLORIDE 0.9% 1,000 ML IV STA (12:23)
[2022-05-16] MEDS ORDERED: MORPHINE 2 MG/ML CARPUJECT IVP STA ×3 (12:23→14:52)
[2022-05-16 12:38] LABS: BILIRUBIN,URINE NEGATIVE (NEGATIVE); GLUCOSE, URINE (UA) 100 mg/dL (NEGATIVE); KETONES,URINE (UA) NEGATIVE (NEGATIVE); LEUKOCYTE ESTERASE, URINE NEGATIVE (NEGATIVE); NITRITE,URINE NEGATIVE (NEGATIVE); OCCULT BLOOD,URINE MODERATE (NEGATIVE); PH,URINE 5.5 PH (5.0-7.5); PROTEIN,URINE NEGATIVE (NEGATIVE); UROBILINOGEN,URINE 0.2 (NORMAL) E.U./dL (NORMAL)
[2022-05-16 12:39] LABS: CLARITY,URINE HAZY (CLEAR); HCG UR QUAL NEGATIVE
--- NOTE | 2022-05-16 12:39 | ED Physician Documentation ---
PD HPI ABD PAIN - Stated complaint Stated Complaint: ABD PX - Chief complaint Chief Complaint: Abd Pain - History obtained from History obtained from: Patient - Additional information Additional information: Patient is a 46-year-old with a history of diabetes and prior hysterectomy presenting for evaluation of left-sided abdominal pain Since yesterday. It started gradually in the morning is progressively been worse. Patient reports having some discomfort in the left flank as well as the left side of her abdomen and lower abdomen. The pain is sharp. She has associated nausea but no vomiting. She denies hematuria. She reports mild dysuria. She denies vaginal discharge. She denies fever, chest pain or difficulty breathing. Nothing makes her symptoms better or worse. She has not tried anything for the pain. She did go to the walk-in clinic and was sent to the emergency department for further evaluation. Review of Systems Constitutional: denies: Fever Nose: denies: Congestion Cardiac: denies: Chest pain / pressure Respiratory: denies: Dyspnea GI: reports: Abdominal Pain, Nausea. denies: Vomiting : reports: Dysuria. 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, Tubal ligation - Present Medications Home Medications: Ambulatory Orders Medication Instructions Recorded Confirmed Albuterol [Ventolin Hfa] 2 puffs INH Q4H PRN 07/03/13 04/06/21 metFORMIN [Glucophage] 1,000 mg PO BID 04/06/21 04/13/21 Acetaminophen [Acetaminophen Extra 1,000 mg PO Q8H PRN #60 tablet 04/13/21 Strength] Docusate Sodium 100Mg Capsule 100 - 200 mg PO BID PRN #60 cap 04/13/21 [Colace 100Mg Capsule] Gabapentin [Neurontin] 300 mg PO TID #60 04/13/21 HYDROmorphone [Dilaudid] 2 mg PO Q4H PRN #24 tablet 04/13/21 Ibuprofen [Motrin] 600 mg PO Q6H PRN #60 tab 04/13/21 Gabapentin [Neurontin] 300 mg PO TID PRN #60 cap 04/14/21 Gabapentin [Neurontin] 300 mg PO TID #10 cap 12/02/21 Ondansetron Odt [Zofran] 4 mg TL Q6H PRN #10 tablet 05/16/22 Oxycodone HCl/Acetaminophen 1 each PO Q6H PRN #10 tablet 05/16/22 [Percocet 5-325 mg Tablet] - Allergies Allergies/Adverse Reactions: Allergies Allergy/AdvReac Type Severity Reaction Status Date / Time No Known Drug Allergies Allergy Verified 05/16/22 11:38 - Social History Does the pt smoke?: No Smoking Status: Never smoker Does the pt drink ETOH?: Yes Does the pt have substance abuse?: No - Immunizations Immunizations are current?: Yes - POLST Patient has POLST: No PD ED PE NORMAL - General General: Alert and oriented X 3, No acute distress, Well developed/nourished - HEENT HEENT: Atraumatic, Moist mucous membranes - Neck Neck: Supple, no meningeal sign - Cardiac Cardiac: RRR, No murmur, Strong equal pulses - Respiratory Respiratory: No respiratory distress, Clear bilaterally - Abdomen Abdomen: Normal bowel sounds, Soft, Non distended, Other (Left upper and lower quadrant tenderness to palpation, no rebound or guarding, No masses or hernias) - Female Female : [employer] 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, 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), Other (Normal external exam, small amount of white vaginal discharge, normal-appearing cervix, no significant CMT or adnexal tenderness, no foreign body) - Back Back: No: No CVA TTP (Left CVA tenderness) - Derm Derm: Warm and dry - Extremities Extremities: No edema - Neuro Neuro: Normal speech Results - Vitals Vitals: Vital Signs - 24 hr 05/16/22 05/16/22 05/16/22 11:34 15:13 15:44 Temperature 36.6 C 36.7 C Heart Rate 78 61 64 Respiratory 16 16 16 Rate Blood Pressure 150/90 H 136/90 H 128/78 O2 Saturation 98 100 100 Oxygen O2 Source Room air - Labs Labs: Microbiology 05/16/22 12:23 Wet Prep - Final Cervix Laboratory Tests 05/16/22 05/16/22 05/16/22 11:47 11:47 12:30 WBC 10.8 RBC 4.95 Hgb 12.6 Hct 39.4 MCV 79.6 L MCH 25.5 L MCHC 32.0 RDW 13.5 Plt Count 364 MPV 9.8 Neut # (Auto) 6.4 Lymph # (Auto) 3.7 H Person # (Auto) 0.5 Eos # (Auto) 0.1 Baso # (Auto) 0.0 Absolute Nucleated RBC 0.00 Nucleated RBC % 0.0 Sodium 136 Potassium 4.1 Chloride 103 Carbon Dioxide 25 Anion Gap 8.0 BUN 9 Creatinine 0.6 Estimated GFR (MDRD) 131 Glucose 224 H Calcium 9.1 Total Bilirubin 0.5 AST 15 ALT 16 Alkaline Phosphatase 69 Total Protein 7.0 Albumin 3.9 Globulin 3.1 Albumin/Globulin Ratio 1.3 Lipase 25 Urine Color YELLOW Urine Clarity HAZY Urine pH 5.5 Ur Specific [place] >=1.030 H Urine Protein NEGATIVE Urine Glucose (UA) 100 H Urine Ketones NEGATIVE Urine Occult Blood MODERATE H Urine Nitrite NEGATIVE Urine Bilirubin NEGATIVE Urine Urobilinogen 0.2 (NORMAL) Ur Leukocyte Esterase NEGATIVE Urine RBC 0-5 Urine WBC 0-3 Ur Squamous Epith Cells MOD Squamous H Urine Bacteria Rare Ur Microscopic Review INDICATED Urine Culture Comments NOT INDICATED Urine HCG, Qual NEGATIVE Chlam trachomat DNA PCR N.gonorrhoeae DNA (PCR) T. vaginalis (PCR) 05/16/22 12:59 WBC RBC Hgb Hct MCV MCH MCHC RDW Plt Count MPV Neut # (Auto) Lymph # (Auto) Person # (Auto) Eos # (Auto) Baso # (Auto) Absolute Nucleated RBC Nucleated RBC % Sodium Potassium Chloride Carbon Dioxide Anion Gap BUN Creatinine Estimated GFR (MDRD) Glucose Calcium Total Bilirubin AST ALT Alkaline Phosphatase Total Protein Albumin Globulin Albumin/Globulin Ratio Lipase Urine Color Urine Clarity Urine pH Ur Specific [place] Urine Protein Urine Glucose (UA) Urine Ketones Urine Occult Blood Urine Nitrite Urine Bilirubin Urine Urobilinogen Ur Leukocyte Esterase Urine RBC Urine WBC Ur Squamous Epith Cells Urine Bacteria Ur Microscopic Review Urine Culture Comments Urine HCG, Qual Chlam trachomat DNA PCR NEGATIVE N.gonorrhoeae DNA (PCR) NEGATIVE T. vaginalis (PCR) NEGATIVE PD MEDICAL DECISION MAKING - ED course Complexity details: reviewed results, re-evaluated patient, d/w patient ED course: Pt with L sided abdominal pain. Pelvic exam without significant findings - no CMT; no adnexal pain to suggest torsion or TOA. Labs reviewed. CT with contrast shows possible ruptured cyst. Repeat abdominal exam remains without peritoneal signs. Discussed workup with pt and she is comfortable with plan for discharge and close PCP follow up. Pt counseled on concerning symptoms to return for. Departure - Departure Disposition: 01 Home, Self Care Clinical Impression: Left sided abdominal pain, Ruptured cyst of left ovary Condition: Stable Instructions: ED Abdominal Pain Female Non-Specific Abdominal Pain Follow-Up: Kim Devine PA-C [Primary Care Provider] - Prescriptions: Oxycodone HCl/Acetaminophen [Percocet 5-325 mg Tablet] 1 each PO Q6H PRN #10 tablet PRN Reason: pain Ondansetron Odt [Zofran] 4 mg TL Q6H PRN #10 tablet PRN Reason: Nausea / Vomiting Comments: You have been evaluated for abdominal pain. Your labs are reassuring and your urine does not show infection. Vaginal swabs were obtained and 1 swab is still pending which checks for sexually transmitted infections. We will notify you if this is abnormal and to send prescriptions. A CT scan was also done which did not show any significant findings other than a possible left ovarian cyst rupture. This may be causing some of your pain. I have sent prescriptions for pain and nausea medications to [facility] in [place]. If your pain continues or is not improving please follow-up with your primary care doctor. If you have any worsening symptoms please consider return to the emergency department. I am prescribing a short course of narcotic pain medication for you. These are potentially dangerous and addictive medications that should be used carefully. These medications may constipate you. Take an [id number] stool softener (docusate) twice daily with plenty of water while taking these medications. If you go 24 hours without a bowel movement, take [id number] miralax, per package instructions. Do not drink or drive while taking these medications. If you received narcotic or sedating medications while in the emergency department, do not drive for 24 hours. Store this medication in a safe, secure place and out of reach of children. It is a violation of federal law to give or sell this medication to another person or to use in a manner other than prescribed. The ED will not refill narcotic prescriptions, including prescriptions lost or stolen. To dispose of unwanted medications: 1. [facility] at [address] in [place] has a medication drop box. They accept prescription medications (in pill form) Monday through Monday 9:00 a.m. to 5:00 p.m. 2. The [facility] [employer] accepts prescription medications (in pill form only) for disposal year round. Call for more information. 3. Contact the [facility] for the next [facility] sponsored prescription drug collection event. , [phone], or [phone]; Note that many narcotic pain relievers also contain Tylenol/acetaminophen. Please ensure that your total dose of acetaminophen from all sources does not exceed 3 g (3000 mg) per day. Forms: Activity restrictions Discharge Date/Time: 05/16/22 15:46
[2022-05-16 12:41] LABS: BACTERIA,URINE Rare /HPF (None Seen); RBC,URINE 0-5 /HPF (0-5); SQUAMOUS EPITHELIAL CELL,UR MOD Squamous (<= Few); WBC,URINE 0-3 /HPF (0-5)
--- NOTE | 2022-05-16 14:43 | CT Report ---
PROCEDURE: Abdomen/Pelvis W INDICATIONS: L sided abd pain CONTRAST: IV CONTRAST: Optiray 320 ml: 100 PO CONTRAST: *NO PO CONTRAST TECHNIQUE: After the administration of intravenous contrast, 5 mm thick sections acquired from the diaphragms to the symphysis. 5 mm thick coronal and sagittal reformats were acquired. For radiation dose reducti on, the following was used: automated exposure control, adjustment of mA and/or kV according to natividad ent size. COMPARISON: None. FINDINGS: Image quality: Excellent. ABDOMEN: Lung bases: Lung bases are clear. Heart size is normal. Solid organs: Liver and spleen are normal in size and enhancement. Gallbladder is unremarkable Gaurang iary system is non dilated. Pancreas enhances normally. No adrenal nodules. Kidneys demonstrate no rmal size and enhancement, without hydronephrosis. Peritoneum and bowel: Bowel loops demonstrate normal wall thickness and caliber. The appendix is thi n-walled and gas-filled. No free fluid or air. Nodes and vessels: No retroperitoneal or mesenteric adenopathy by size criteria. Aorta and inferior vena cava are normal in size. Miscellaneous: No ventral hernias. PELVIS: Genitourinary: Bladder wall thickness is normal. The uterus is not visualized and may be surgically absent. The right ovary is grossly unremarkable. There is a crenulated appearing follicular cyst vis ualized within the left ovary (series 7/image 33). Miscellaneous: No inguinal hernias or adenopathy. Bones: No suspicious bony lesions. No vertebral body compression fractures. IMPRESSION: 1. No acute intra-abdominal findings. Normal appendix. 2. Questionable recent left follicular cyst rupture. It is unclear whether this may be associated wit h the patient's left lower quadrant pain. Reviewed by: Mavis Chavez MD on 05/16/2022 2:42 PM PDT Approved by: Mavis Chavez MD on 05/16/2022 2:42 PM PDT Station ID: [id number]
[2022-05-16 15:46] VITALS: BP 128/78
[2022-05-16 16:16] LABS: CHLAMYDIA TRACHOMATIS DNA NEGATIVE (NEGATIVE); NEISSERIA GONORRHOEAE DNA NEGATIVE (NEGATIVE); TRICHOMONAS VAGINALIS DNA NEGATIVE (NEGATIVE)
== END 2022-05-16 15:46 | disposition home or self-care (01) ==
LOC: ED 11:25
DX: N83.202 Unspecified ovarian cyst, left side (principal); I10 Essential (primary) hypertension; E11.9 Type 2 diabetes mellitus without complications; Z79.84 Long term (current) use of oral hypoglycemic drugs
CPT/HCPCS: 36415; 74177; 80053; 81001; 81025; 83690; 85025; 87210; 87491; 87591; 87661; 96361; 96374; 96376; 99282; 99284; Q9967; 81003; 81514; 87086

== ENCOUNTER 2022-11-01 12:55 | Emergency (ER) | payer MEDICAID ==
[2022-11-01 13:22] LABS: BILIRUBIN,URINE NEGATIVE (NEGATIVE); GLUCOSE, URINE (UA) 250 mg/dL (NEGATIVE); KETONES,URINE (UA) NEGATIVE (NEGATIVE); LEUKOCYTE ESTERASE, URINE NEGATIVE (NEGATIVE); NITRITE,URINE NEGATIVE (NEGATIVE); OCCULT BLOOD,URINE MODERATE (NEGATIVE); PROTEIN,URINE NEGATIVE (NEGATIVE); UROBILINOGEN,URINE 0.2 (NORMAL) E.U./dL (NORMAL)
[2022-11-01 13:24] LABS: CLARITY,URINE HAZY (CLEAR); HCG UR QUAL NEGATIVE
[2022-11-01 13:42] LABS: BACTERIA,URINE Few /HPF (None Seen); RBC,URINE 0-5 /HPF (0-5); SQUAMOUS EPITHELIAL CELL,UR MOD Squamous (<= Few); WBC,URINE 0-3 /HPF (0-5)
--- NOTE | 2022-11-01 14:06 | ED Physician Documentation ---
History of Present Illness - Stated complaint Stated Complaint: FEVER/CHILLS/THROAT PX - Chief complaint Chief Complaint: UTI - Additonal information Additional information: 47-year-old female presenting with fever cough, congestion, headache. Symptoms began Monday. Reports that her son is at home with similar symptoms. Has been taking DayQuil without relief. Denies any chest pain or shortness of breath. Review of Systems Constitutional: reports: Fever Ears: denies: Loss of hearing Nose: reports: Rhinorrhea / runny nose, Congestion Respiratory: reports: Cough. 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 and currettage, Tubal ligation - Present Medications Home Medications: Ambulatory Orders Medication Instructions Recorded Confirmed Albuterol [Ventolin Hfa] 2 puffs INH Q4H PRN 07/03/13 04/06/21 metFORMIN [Glucophage] 1,000 mg PO BID 04/06/21 04/13/21 Acetaminophen [Acetaminophen Extra 1,000 mg PO Q8H PRN #60 tablet 04/13/21 Strength] Docusate Sodium 100Mg Capsule 100 - 200 mg PO BID PRN #60 cap 04/13/21 [Colace 100Mg Capsule] Gabapentin [Neurontin] 300 mg PO TID #60 04/13/21 HYDROmorphone [Dilaudid] 2 mg PO Q4H PRN #24 tablet 04/13/21 Ibuprofen [Motrin] 600 mg PO Q6H PRN #60 tab 04/13/21 Gabapentin [Neurontin] 300 mg PO TID PRN #60 cap 04/14/21 Gabapentin [Neurontin] 300 mg PO TID #10 cap 12/02/21 Ondansetron Odt [Zofran] 4 mg TL Q6H PRN #10 tablet 05/16/22 Oxycodone HCl/Acetaminophen 1 each PO Q6H PRN #10 tablet 05/16/22 [Percocet 5-325 mg Tablet] - Allergies Allergies/Adverse Reactions: Allergies Allergy/AdvReac Type Severity Reaction Status Date / Time No Known Drug Allergies Allergy Verified 11/01/22 13:05 - Social History Does the pt smoke?: No Smoking Status: Never smoker Does the pt drink ETOH?: Yes Does the pt have substance abuse?: No - Immunizations Immunizations are current?: Yes - POLST Patient has POLST: No PD ED PE NORMAL - Vitals Vital signs reviewed: Yes - General General: Alert and oriented X 3, No acute distress, Well developed/nourished - HEENT HEENT: Atraumatic, PERRL, EOMI, Ears normal, Moist mucous membranes, Pharynx benign - Neck Neck: Supple, no meningeal sign, No bony TTP, No adenopathy, No JVD - Cardiac Cardiac: RRR, No murmur, No gallop - Respiratory Respiratory: No respiratory distress - Abdomen Abdomen: Normal bowel sounds - Female Female : Deferred - Rectal Rectal: Deferred Results - Vitals Vitals: Vital Signs - 24 hr 11/01/22 13:02 Temperature 36.8 C Heart Rate 89 Respiratory 16 Rate Blood Pressure 129/93 H O2 Saturation 99 Oxygen O2 Source Room air - Labs Labs: Laboratory Tests 11/01/22 11/01/22 13:08 13:15 Urine Color YELLOW Urine Clarity HAZY Urine pH 6.0 Ur Specific [place] 1.010 Urine Protein NEGATIVE Urine Glucose (UA) 250 H Urine Ketones NEGATIVE Urine Occult Blood MODERATE H Urine Nitrite NEGATIVE Urine Bilirubin NEGATIVE Urine Urobilinogen 0.2 (NORMAL) Ur Leukocyte Esterase NEGATIVE Urine RBC 0-5 Urine WBC 0-3 Ur Squamous Epith Cells MOD Squamous H Urine Bacteria Few Ur Microscopic Review INDICATED Urine Culture Comments NOT INDICATED Urine HCG, Qual NEGATIVE Nasal Adenovirus (PCR) NOT DETECTED Nasal B. parapertussis DNA (PCR) NOT DETECTED Nasal Coronavir 229E PCR NOT DETECTED Nasal Coronavir HKU1 PCR NOT DETECTED Nasal Coronavir NL63 PCR NOT DETECTED Nasal Coronavir OC43 PCR NOT DETECTED Nasal Enterovir/Rhinovir PCR NOT DETECTED Nasal Influenza B PCR NOT DETECTED Nasal Influenza A PCR NOT DETECTED Nasal Parainfluen 1 PCR NOT DETECTED Nasal Parainfluen 2 PCR NOT DETECTED Nasal Parainfluen 3 PCR NOT DETECTED Nasal Parainfluen 4 PCR NOT DETECTED Nasal RSV (PCR) NOT DETECTED Nasal B.pertussis DNA PCR NOT DETECTED Nasal C.pneumoniae (PCR) NOT DETECTED Thai Human Metapneumo PCR NOT DETECTED Nasal M.pneumoniae (PCR) NOT DETECTED Nasal SARS-CoV-2 (PCR) DETECTED A PD Medical Decision Making - ED course Complexity details: reviewed results, re-evaluated patient, d/w patient ED course: Patient 47-year-old female presenting to the emergency department with fever, cough, congestion, headache. Subsequently found to be COVID-positive. On evaluation afebrile, hemodynamically stable with clear aeration in all lung serrano. Did endorse for headache but no nuchal rigidity or meningismal signs were appreciated on exam. Discussed Paxlovid which was declined by patient. Will discharge with medication for symptomatic management. Discussed CDC quarantine precautions. Clear return precautions given.
[2022-11-01 14:18] LABS: B. PARAPERTUSSIS- RESP PCR PAN NOT DETECTED; B. PERTUSSIS- RESP PCR PANEL NOT DETECTED; C. PNEUMONIAE- RESP PCR PANEL NOT DETECTED; CORONAVIRUS 229E-RESP PCR NOT DETECTED; CORONAVIRUS HKU1-RESP PCR NOT DETECTED; CORONAVIRUS NL63-RESP PCR NOT DETECTED; CORONAVIRUS OC43-RESP PCR NOT DETECTED; HUMAN METAPNEUMOVIRUS NOT DETECTED; INFLUENZA A- RESP PCR PANEL NOT DETECTED; INFLUENZA B - RESP PCR PANEL NOT DETECTED; M. PNEUMONIAE- RESP PCR PANEL NOT DETECTED; PARAINFLUENZA VIRUS 1 NOT DETECTED; PARAINFLUENZA VIRUS 2 NOT DETECTED; PARAINFLUENZA VIRUS 3 NOT DETECTED; PARAINFLUENZA VIRUS 4 NOT DETECTED; RHINOVIRUS/ENTEROVIRUS NOT DETECTED; RSV- RESP PCR PANEL NOT DETECTED
[2022-11-01 14:20] LABS: SARS-CoV-2 -RESP PCR PANEL DETECTED
[2022-11-01 15:11] VITALS: BP 120/88
== END 2022-11-01 15:10 | disposition home or self-care (01) ==
LOC: ED 12:55
DX: U07.1 COVID-19 (principal); E11.9 Type 2 diabetes mellitus without complications; Z79.84 Long term (current) use of oral hypoglycemic drugs
CPT/HCPCS: 81001; 81003; 81025; 87086; 87633; 99283; 99284

== ENCOUNTER 2023-08-25 13:33 | Outpatient (CLI) | payer MEDICAID ==
--- NOTE | 2023-08-28 11:46 | Mammography Report ---
BILATERAL DIGITAL SCREENING MAMMOGRAM 3D/2D: 08/25/2023 CLINICAL: Routine screening. Comparison is made to exam dated: 11/03/2017 mammogram - [facility]. Both breasts are heterogeneously dense, which may obscure small masses (category c / 51-75% glandular tissue). No significant masses, calcifications, or other findings are seen in either breast. There has been no significant interval change. IMPRESSION: NEGATIVE There is no mammographic evidence of malignancy. A 1 year screening mammogram is recommended. Based on the Tyrer Cuzick model (a risk assessment model) the patients lifetime risk is 10.8% and he r 10 year risk is 2.1%. According to the ACR, ACS, and NCCN guidelines, an annual breast MRI exam bertha ng with mammogram is recommended if the patients lifetime risk is 20% or greater. This exam was interpreted at Station ID: [id number]. NOTE: For mammograms, a report in lay terms will be sent to the patient. Approximately 15% of breast malignancies will not be visualized mammographically. In the management of a palpable breast mass, a negative mammogram must not discourage biopsy of a clinically suspicious lesion. Electronically Signed By: Matias guaman/[email or web address]:08/25/2023 14:08:40 letter sent: No_Letter ACR BI-RADS Category 1: Negative 3341F PARENCHYMAL PATTERN: (D) - The breast(s) demonstrate(s) heterogeneously dense fibroglandular florencia sharp. BI-RADS CATEGORY: (1) - 1 Mammogram [id number] 1 year screening LATERALITY: (B)
== END 2023-08-25 13:34 | disposition home or self-care (01) ==
LOC: DI 13:33
DX: Z12.31 Encounter for screening mammogram for malignant neoplasm of breast (principal); R92.333 Mammographic heterogeneous density, bilateral breasts

== ENCOUNTER 2023-09-05 10:55 | Outpatient (CLI) | payer MEDICAID ==
[2023-09-05 18:40] LABS: BASOPHILS % (AUTO) 0.3 %; EOSINOPHILS # (AUTO) 0.2 10^3/uL (0.0-0.7); EOSINOPHILS % (AUTO) 1.3 %; HCT - HEMATOCRIT 41.7 % (37.0-47.0); HGB - HEMOGLOBIN 13.2 g/dL (12.0-16.0); LYMPHOCYTES # (AUTO) 3.3 10^3/uL (1.5-3.5); MEAN CORPUSCULAR HGB CONC 31.7 g/dL (32.0-36.0); MEAN CORPUSCULAR VOLUME 82.1 fL (81.0-99.0); MEAN PLATELET VOLUME 10.7 fL (7.9-10.8); MONOCYTES # (AUTO) 0.4 10^3/uL (0.0-1.0); MONOCYTES % (AUTO) 3.6 %; NEUTROPHILS # (AUTO) 7.8 10^3/uL (1.5-6.6); NEUTROPHILS % (AUTO) 66.3 %; PLT - PLATELET COUNT 388 10^3/uL (130-450); RED BLOOD COUNT 5.08 10^6/uL (4.20-5.40); RED CELL DISTRIBUTION WIDTH 13.4 % (12.0-15.0); WHITE BLOOD COUNT 11.8 x10^3/uL (4.8-10.8)
[2023-09-05 19:00] LABS: CREATININE,URINE 182.5 mg/dL; MICROALBUM/CREATININE RATIO,UR 12.1 ug/mg (<30.0); MICROALBUMIN,URINE 2.2 mg/dL
[2023-09-05 19:36] LABS: ALBUMIN 3.9 g/dL (3.2-5.5); ALBUMIN/GLOBULIN RATIO 1.3 (1.0-2.2); ALKALINE PHOSPHATASE 70 IU/L (42-121); ALT ALANINE AMINOTRANSFERASE 13 IU/L (10-60); AST ASPARTATE AMINOTRANSFERASE 14 IU/L (10-42); BILIRUBIN,TOTAL 0.2 mg/dL (0.2-1.0); BUN - BLOOD UREA NITROGEN 6 mg/dL (6-20); CALCIUM 9.2 mg/dL (8.5-10.3); CARBON DIOXIDE - CO2 26 mmol/L (21-32); CHLORIDE 103 mmol/L (101-111); CHOLESTEROL 128 mg/dL; CREATININE 0.7 mg/dL (0.6-1.3); GFR - MDRD 109 (>89); GLUCOSE 253 mg/dL (74-104); HDL CHOLESTEROL 43 mg/dL; LDL CHOLESTEROL,CALCULATED 51 mg/dL; LDL/HDL RATIO 1.2 (<4.4); POTASSIUM 4.3 mmol/L (3.5-4.5); SODIUM 136 mmol/L (135-145); TRIGLYCERIDES 171 mg/dL (48-352); VLDL CHOLESTEROL 34 mg/dL
[2023-09-05 20:35] LABS: FERRITIN 85.5 ng/mL (11.0-306.8); THYROID STIMULATING HORMONE 2.59 uIU/mL (0.34-5.60)
[2023-09-05 21:51] LABS: ESTIMATED AVERAGE GLUCOSE 252 mg/dL (70-100); HEMOGLOBIN A1c% 10.4 % (4.27-6.07)
== END 2023-09-05 10:56 | disposition home or self-care (01) ==
LOC: LAB.N 10:55
PROVIDERS: ATTEND Physician Assistant Medical
DX: E11.9 Type 2 diabetes mellitus without complications (principal); D64.9 Anemia, unspecified
CPT/HCPCS: 36415; 80050; 80061; 82043; 82570; 82728; 83036; 83721

== ENCOUNTER 2023-09-12 06:25 | Day surgery (SDC) | payer OTHER, MEDICAID ==
[2023-09-12] MEDS ORDERED: LACTATED RINGERS 1,000 ML IV ONE (06:27)
[2023-09-12 06:46] VITALS: O2SAT 100
--- NOTE | 2023-09-12 07:11 | ANESTHESIA ---
Pre-Anesthesia VS, & Labs - Diagnosis screening - Procedure colonoscopy Vital Signs: Temp Pulse Resp BP Pulse Ox O2 Flow Rate 36 C L 75 16 140/86 H 100 09/12/23 06:33 09/12/23 06:33 09/12/23 06:33 09/12/23 06:33 09/12/23 06:33 Height: 5 ft 2 in Weight (kg): 85.2 kg Body Mass Index: 34.3 BMI Classification: Obese - NPO >8 hours - Is Patient ?: No - Lab Results Current Lab Results: Laboratory Tests 09/12/23 06:49: POC Whole Bld Glucose 191 H Home Medications and Allergies Albuterol [Ventolin Hfa] 2 puffs INH Q4H PRN 07/03/13 Allergies/Adverse Reactions: Allergies Allergy/AdvReac Type Severity Reaction Status Date / Time No Known Drug Allergies Allergy Verified 11/01/22 13:05 Anes History & Medical History - Anesthetic History Anesthesia Complications: reports: No previous complications - Medical History Cardiovascular: reports: Hypertension Pulmonary: reports: Asthma Gastrointestinal: reports: GERD Urinary: reports: None Neuro: reports: None Musculoskeletal: reports: None Endocrine/Autoimmune: reports: Type 2 diabetes Blood Disorders: reports: Anemia Skin: reports: Eczema Smoking Status: Never smoker - Surgical History Gynecologic: reports: Dilation and currettage, Tubal ligation, Hysterectomy Exam General: Alert, Oriented x3 Dental: WNL Mouth Opening: Greater than 4 Fingerbreadths Neck Mobility: Normal Mallampati classification: I Respiratory: Lungs clear Cardiovascular: Regular rate, Normal S1, Normal S2 Plan Anesthesia Type: Total IV Consent for Procedure(s) Verified and Reviewed: Yes Code Status: Attempt Resuscitation ASA classification: 2-Mild systemic disease Is this case an emergency?: No
[2023-09-12] MEDS ORDERED: PROPOFOL 500 MG/50 ML 500 MG/50 ML VIAL ONE (07:14)
[2023-09-12] MEDS ORDERED: LACTATED RINGERS 700 ML IV ONE (07:53)
[2023-09-12 08:23] VITALS: BP 122/69
--- NOTE | 2023-09-12 08:29 | ANESTHESIA POST OP EVALUATION ---
Anesthesia Post Eval - Post Anesthesia Eval Vitals: Last Vital Signs Temp 36 C L 09/12/23 08:15 Pulse 61 09/12/23 08:15 Resp 16 09/12/23 08:15 BP 122/69 09/12/23 08:15 Pulse Ox 100 09/12/23 08:15 O2 Flow Rate CV Function Including HR & BP: Stable Pain Control: Satisfactory Nausea & Vomiting: Negative Mental Status: Baseline Respiratory Status: Airway Patent Hydration Status: Satisfactory Anesthesia Complications: None
== END 2023-09-12 06:26 | disposition home or self-care (01) ==
LOC: SDS 06:25
PROVIDERS: ATTEND Surgery
DX: Z12.11 Encounter for screening for malignant neoplasm of colon (principal); E11.9 Type 2 diabetes mellitus without complications; J45.909 Unspecified asthma, uncomplicated; E66.9 Obesity, unspecified; Z68.34 Body mass index [BMI] 34.0-34.9, adult; Z79.84 Long term (current) use of oral hypoglycemic drugs
CPT/HCPCS: 45378; J7120; 81025

== ENCOUNTER 2023-11-21 16:48 | Emergency (ER) | payer MEDICAID ==
--- NOTE | 2023-11-21 18:06 | ED Physician Documentation ---
PD HPI UPPER EXT INJURY - Stated complaint Stated Complaint: RT HAND LAC - Chief complaint Chief Complaint: Laceration - Additonal information Additional information: 48-year-old female presents emergency department for right thumb laceration. Patient says that she was washing dishes this actually broke over her right thumb. She has full range of motion to her thumb and is unsure if her tetanus is up-to-date or not. Laceration appears to be superficial and bleeding is controlled she is not any blood thinners. She also reports that she has recently been feeling under the weather for the last 2 to 3 days with an increased sore throat with headache and generalized malaise. She feels like she is having a hard time dealing with the sore throat symptoms has not taken any Tylenol ibuprofen for the symptoms. 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: Dilation and currettage, Tubal ligation, Hysterectomy - Present Medications Home Medications: Ambulatory Orders Medication Instructions Recorded Confirmed Albuterol [Ventolin Hfa] 2 puffs INH Q4H PRN 07/03/13 09/12/23 - Allergies Allergies/Adverse Reactions: Allergies Allergy/AdvReac Type Severity Reaction Status Date / Time No Known Drug Allergies Allergy Verified 11/21/23 17:02 - Social History Does the pt smoke?: No Smoking Status: Never smoker Does the pt drink ETOH?: Yes Does the pt have substance abuse?: No - Immunizations Immunizations are current?: Yes - POLST Patient has POLST: No PD ED PE NORMAL - Vitals Vital signs reviewed: Yes - General General: Alert and oriented X 3, No acute distress, Well developed/nourished - HEENT HEENT: Atraumatic, PERRL, Moist mucous membranes, Other (Mild pharynx erythema no tonsillar abscess or swelling) - Neck Neck: Supple, no meningeal sign - Derm Derm: Normal color, Warm and dry, No rash, Other (1 cm right thumb laceration over the first joint. Full range of motion to the thumb CMS intact.) Results - Vitals Vitals: Vital Signs - 24 hr 11/21/23 11/21/23 11/21/23 17:02 17:39 18:44 Temperature 36.8 C 37.2 C Heart Rate 88 85 54 L Respiratory 16 20 20 Rate Blood Pressure 130/90 H 134/92 H 106/66 O2 Saturation 98 99 98 Oxygen O2 Source Room air Procedures - Laceration (location) Right thumb volar laceration Length in cm: 1 Wound type: Curved, Superficial, Clean Neurovascular status: Sensory intact, Motor intact, Vascular intact Tendon involvement: Tendon intact Anesthesia: LET Wound preparation: Irrigated copiously NS Skin layer closure: Dermabond, Steri strips Other: Patient tolerated well, No complications, Tetanus booster given PD Medical Decision Making - ED course ED course: 48-year-old female presents emergency department for right thumb laceration and sore throat. In regards to the sore throat no history of immunocompromise. Nontoxic appearance. Patient euvolemic with no trismus. No airway compromise. No change in voice, exudates, enlarged lymph nodes. Able to tolerate PO. 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 She was given a total of 10 mg p.o. dexamethasone and Tylenol ibuprofen with some alleviation of her sore throat. In regards to her right thumb laceration laceration appears to be about 1 cm curved is quite superficial we repaired with Dermabond and Steri-Strips. She was given return precautions told signs symptoms of infection to watch out for and how to manage wound at home. All questions answered safe for discharge. Departure - Departure Disposition: 01 Home, Self Care Clinical Impression: Sore throat (viral) Upper respiratory infection Qualifiers: URI type: unspecified viral URI Qualified Code(s): J06.9 - Acute upper respiratory infection, unspecified Hand laceration Qualifiers: Encounter type: initial encounter Foreign body presence: without foreign body Laterality: right Qualified Code(s): S61.411A - Laceration without foreign body of right hand, initial encounter Instructions: ED Laceration Hand Comments: Thank you for trusting us with your care, we have evaluated you for your right hand laceration. We have placed some glue as well as some Steri-Strips over the laceration. Is okay to still use that thumb, I would try to keep that area dry for the next couple days to really get the glue and Steri-Strips a chance to adhere. You can remove the Steri-Strips and glue after 10 to 12 days If it has not fallen off on its own. We have given you 10 mg of dexamethasone for her sore throat as well as some Tylenol and ibuprofen. You can also gargle with warm salt water and drink warm water with honey and tea to help with your sore throat. Please come back to the emergency department if you are starting to notice any signs or symptoms of infection which include redness, swelling, drainage that is yellow/green, fevers or chills, or any other concerning symptoms. Forms: PCP List Discharge Date/Time: 11/21/23 19:01
[2023-11-21] MEDS: TETANUS/DIPHTHERIA/PERTUSSIS 0.5 ML SYRINGE IM ONE (18:20)
[2023-11-21] MEDS: LIDOCAINE-EPINEPH-TETRACAINE 3 ML SYRINGE TOP STA (18:23)
[2023-11-21 18:49] VITALS: BP 106/66; O2SAT 98
[2023-11-21] MEDS: ACETAMINOPHEN 325 MG TABLET PO STA (18:53)
[2023-11-21] MEDS: DEXAMETHASONE 10 MG/ML VIAL PO STA (18:53)
[2023-11-21] MEDS: IBUPROFEN 600 MG TABLET PO STA (18:53)
[2023-11-21] MEDS: CHERRY SYRUP 10 ML UDC PO ONE (19:00)
== END 2023-11-21 19:01 | disposition home or self-care (01) ==
LOC: ED 16:48
DX: S61.011A Laceration without foreign body of right thumb without damage to nail, initial encounter (principal); J06.9 Acute upper respiratory infection, unspecified; W25.XXXA Contact with sharp glass, initial encounter; Y93.G1 Activity, food preparation and clean up; I10 Essential (primary) hypertension; E11.9 Type 2 diabetes mellitus without complications; Z23 Encounter for immunization
CPT/HCPCS: 12001; 90471; 90715; 99283; A9270

== ENCOUNTER 2023-11-24 11:28 | Emergency (ER) | payer MEDICAID ==
[2023-11-24 11:45] VITALS: O2SAT 100
[2023-11-24 12:38] LABS: BASOPHILS # (AUTO) 0.1 10^3/uL (0.0-0.1); BASOPHILS % (AUTO) 0.6 %; EOSINOPHILS # (AUTO) 0.2 10^3/uL (0.0-0.7); EOSINOPHILS % (AUTO) 1.9 %; HCT - HEMATOCRIT 47.5 % (37.0-47.0); HGB - HEMOGLOBIN 14.2 g/dL (12.0-16.0); LYMPHOCYTES # (AUTO) 4.2 10^3/uL (1.5-3.5); MEAN CORPUSCULAR HEMOGLOBIN 24.7 pg (27.0-31.0); MEAN CORPUSCULAR HGB CONC 29.9 g/dL (32.0-36.0); MEAN CORPUSCULAR VOLUME 82.6 fL (81.0-99.0); MEAN PLATELET VOLUME 10.2 fL (7.9-10.8); MONOCYTES # (AUTO) 0.6 10^3/uL (0.0-1.0); MONOCYTES % (AUTO) 5.5 %; NEUTROPHILS # (AUTO) 6.2 10^3/uL (1.5-6.6); NEUTROPHILS % (AUTO) 54.6 %; PLT - PLATELET COUNT 426 10^3/uL (130-450); RED BLOOD COUNT 5.75 10^6/uL (4.20-5.40); RED CELL DISTRIBUTION WIDTH 14.6 % (12.0-15.0); WHITE BLOOD COUNT 11.3 x10^3/uL (4.8-10.8)
[2023-11-24 12:52] LABS: ALBUMIN 4.4 g/dL (3.2-5.5); ALBUMIN/GLOBULIN RATIO 1.2 (1.0-2.2); BILIRUBIN,TOTAL 0.4 mg/dL (0.2-1.0); CALCIUM 9.7 mg/dL (8.5-10.3); CREATININE 0.8 mg/dL (0.6-1.3); POTASSIUM 3.5 mmol/L (3.5-4.5); TOTAL PROTEIN 8.2 g/dL (6.4-8.9)
[2023-11-24] MEDS: KETOROLAC 30 MG/ML VIAL IVP STA (13:06)
[2023-11-24] MEDS: SODIUM CHLORIDE 0.9% 1,000 ML IV STA (13:06)
[2023-11-24 13:33] LABS: BILIRUBIN,URINE SMALL (NEGATIVE); GLUCOSE, URINE (UA) >=1000 mg/dL (NEGATIVE); KETONES,URINE (UA) 15 mg/dL (NEGATIVE); LEUKOCYTE ESTERASE, URINE NEGATIVE (NEGATIVE); NITRITE,URINE NEGATIVE (NEGATIVE); OCCULT BLOOD,URINE SMALL (NEGATIVE); PROTEIN,URINE NEGATIVE (NEGATIVE); UROBILINOGEN,URINE 0.2 (NORMAL) E.U./dL (NORMAL)
[2023-11-24 13:37] LABS: CLARITY,URINE HAZY (CLEAR)
[2023-11-24 13:46] LABS: BACTERIA,URINE Moderate /HPF (None Seen); RBC,URINE 0-5 /HPF (0-5); SQUAMOUS EPITHELIAL CELL,UR MANY Squamous (<= Few); WBC,URINE 0-3 /HPF (0-5)
--- NOTE | 2023-11-24 13:46 | ED Physician Documentation ---
PD HPI ABD PAIN - Stated complaint Stated Complaint: ABD/BACK SPASMS - Chief complaint Chief Complaint: Abd Pain - History obtained from History obtained from: Patient - History of Present Illness Timing - onset: Yesterday Timing - duration: Days (2) Timing - details: Abrupt onset, Still present, Intermittant, Waxing and waning Quality: Cramping, Aching, Sharp, Pain Location: LUQ Radiation: Left flank Improved by: Other (nothing) Worsened by: Other (nothing) Associated symptoms: Nausea, Constipation. No: Fever, Vomiting, Hematemesis, Diarrhea Similar symptoms before: Has not had sx before Recently seen: Clinic, Emergency Dept - Additional information Additional information: 48-year-old Lorri Hooks has developed excessive left flank pain that is undulating in nature and severe. She was in the emergency department yesterday and got a laceration to her thumb repaired. She felt after taking some medi cation yesterday that somehow this triggered this pain. After complete review of her history and examination was apparent there is more to the story. She indicates that she had a colonoscopy done a month ago and she is not been having normal bowel movements since. She feels like she is very constipated. She gives a history that her pain is present and severe in a periodic basis. Review of Systems Constitutional: denies: Fever Eyes: denies: Decreased vision Ears: denies: Ear pain Nose: denies: Rhinorrhea / runny nose, Congestion Throat: denies: Sore throat Cardiac: denies: Chest pain / pressure, Palpitations Respiratory: denies: Dyspnea, Cough GI: reports: Abdominal Pain, Nausea, Constipation : denies: Dysuria, Frequency Skin: denies: Rash Musculoskeletal: reports: Back pain. 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: Dilation and currettage, Tubal ligation, Hysterectomy - Present Medications Home Medications: Ambulatory Orders Medication Instructions Recorded Confirmed Albuterol [Ventolin Hfa] 2 puffs INH Q4H PRN 07/03/13 11/24/23 - Allergies Allergies/Adverse Reactions: Allergies Allergy/AdvReac Type Severity Reaction Status Date / Time No Known Drug Allergies Allergy Verified 11/24/23 11:37 - Social History Does the pt smoke?: No Smoking Status: Never smoker Does the pt drink ETOH?: Yes Does the pt have substance abuse?: No - Immunizations Immunizations are current?: Yes - POLST Patient has POLST: No PD ED PE NORMAL - Vitals Vital signs reviewed: Yes (hypertensive ) - General General: Alert and oriented X 3, Well developed/nourished, Other (equipment 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 tone and flattened affect consistent with pain ) - HEENT HEENT: Atraumatic, PERRL, EOMI - Neck Neck: Supple, no meningeal sign, No bony TTP - Cardiac Cardiac: RRR, No murmur - Respiratory Respiratory: No respiratory distress, Clear bilaterally - Abdomen Abdomen: Normal bowel sounds, Soft, Non distended, No organomegaly, Other (mild L sided tenderness without garding or rebound tenderness ) - Back Back: No CVA TTP, No spinal TTP - Derm Derm: Normal color, Warm and dry, No rash - Extremities Extremities: No deformity, No edema - Neuro Neuro: Alert and oriented X 3, environmental program manager 2-12 intact, No motor deficit, No sensory deficit, Normal speech Eye Opening: Spontaneous Motor: Obeys Commands Verbal: Oriented GCS Score: 15 - Psych Psych: Normal mood, Normal affect Results - Vitals Vitals: Vital Signs - 24 hr 11/24/23 11/24/23 11/24/23 11:30 13:33 14:37 Temperature 36.1 C L Heart Rate 84 64 70 Respiratory 16 18 18 Rate Blood Pressure 112/93 H 124/78 138/95 H O2 Saturation 100 100 100 Oxygen O2 Source Room air - Labs Labs: Laboratory Tests 11/24/23 11/24/23 11/24/23 12:32 12:32 13:26 WBC 11.3 H RBC 5.75 H Hgb 14.2 Hct 47.5 H MCV 82.6 MCH 24.7 L MCHC 29.9 L RDW 14.6 Plt Count 426 MPV 10.2 Neut # (Auto) 6.2 Lymph # (Auto) 4.2 H [place] # (Auto) 0.6 Eos # (Auto) 0.2 Baso # (Auto) 0.1 Absolute Nucleated RBC 0.00 Nucleated RBC % 0.0 Sodium 138 Potassium 3.5 Chloride 104 Carbon Dioxide 27 Anion Gap 7.0 BUN 13 Creatinine 0.8 Estimated GFR (MDRD) 93 Glucose 95 Calcium 9.7 Total Bilirubin 0.4 AST 10 ALT 10 Alkaline Phosphatase 53 Total Protein 8.2 Albumin 4.4 Globulin 3.8 Albumin/Globulin Ratio 1.2 Lipase 12 Urine Color YELLOW Urine Clarity HAZY Urine pH 6.0 Ur Specific [place] 1.025 Urine Protein NEGATIVE Urine Glucose (UA) >=1000 H Urine Ketones 15 H Urine Occult Blood SMALL H Urine Nitrite NEGATIVE Urine Bilirubin SMALL H Urine Urobilinogen 0.2 (NORMAL) Ur Leukocyte Esterase NEGATIVE Urine RBC 0-5 Urine WBC 0-3 Ur Squamous Epith Cells MANY Squamous H Urine Bacteria Moderate H Ur Microscopic Review INDICATED Urine Culture Comments NOT INDICATED - Rads (name of study) CT ab/pel Relevant Findings:: Prelim report reviewed (Impression: No acute abdominal process. No renal stone or ureteral stone or hydronephrosis. Remote hysterectomy.), EMP independent interpretation of test Procedures - Bedside sono Bedside sono by EMP: With use of POCUS the left kidney is imaged it is sonographically nontender there is minimal hydronephrosis present. PD Medical Decision Making - ED course Complexity details: reviewed old records, reviewed results, re-evaluated patient, considered differential, d/w patient Reviewed Lab Results: We reviewed a complete blood count showing an elevated white blood cell count of 11.3 hemoglobin normal at 14.2 hematocrit mildly elevated at 47.5 platelets normal at 426,000 chemistries completely unremarkable with normal electrolytes kidney and liver function and a normal glucose. In this patient this is the first normal glucose we have registered for her in the past 9 years. Urinalysis shows glucose present in the urine as well as ketones and a small amount of acute blood there are many squamous cells moderate bacteria 0-3 white blood cells per high-power field and is negative for leukocyte Estrace and nitrate. This urinalysis shows a concentrated urine with glucose likely related to the Jardiance that she is taking. There is not an indication for infection. ED course: 48-year-old female who has changed her diabetic regimen to Jardiance is complaining of some left upper quadrant abdominal pain that is periodically severe. On my initial history I found the story to be a nonmodifiable flank pain. On examination she was not tender over the left kidney and had mild hydro and 1 portion of the collecting system. I found this enough to consider this a possible kidney stone and obtained a noncontrast CT scan of the abdomen pelvis. There was no evidence of kidney stone. I did examine the CT scan myself and found a significant stool load. I then asked the patient further history. She told me that she had a colonoscopy done over a month ago and that she has had trouble with her bowels since. She has used a number of different laxatives without results. She feels that she has been constipated. Her history is consistent with constipation is being a reason for her pain. Her laboratory studies are reassuring that she is on track with changing to Jardiance. I encouraged the patient to treat the constipation with milk of magnesia and we will provide a dose here. I have encouraged her to go through bowel retraining with MiraLAX after emptying her bowels. Departure - Departure Disposition: 01 Home, Self Care Clinical Impression: Constipation Qualifiers: Constipation type: unspecified constipation type Qualified Code(s): K59.00 - Constipation, unspecified Condition: Stable Instructions: ED Constipation Follow-Up: Kim Devine PA-C [Primary Care Provider] - Comments: Lorri, today it looks like the cause of your intermittent severe pain is constipation. This showed up on your CAT scan and by history it sounds like you have been having a problem with this. We did not find other reasons for your abdominal pain. My recommendation is to take a dose of milk of magnesia now and if you do not have results within 6 hours take a second dose. After your colon is cleaned out a regular dose of MiraLAX is indicated to retrain your colon. You may need to take this medication regularly for 2 to 4 weeks. Once your bowels are maintained at a regular pace you can stop taking this and this should work. Forms: PCP List
--- NOTE | 2023-11-24 13:49 | CT Report ---
PROCEDURE: Abdomen/Pelvis WO INDICATIONS: L flank pain TECHNIQUE: A CT scan of the abdomen and pelvis was performed without the use of intravenous contrast. Images we re recorded and evaluated at appropriate window settings. Reformats: coronal and sagittal. For radiat ion dose reduction, the following was used: automated exposure control, adjustment of mA and/or kV ac cording to patient size. COMPARISON: CT abdomen and pelvis with contrast dated 05/16/2022. FINDINGS: Image quality: Diagnostic. Lower chest: Unremarkable. Liver: No contour-deforming mass. Gallbladder and biliary tree: No radiopaque stones or wall thickening. No biliary dilation. Spleen: No splenomegaly. Pancreas: No pancreatic ductal dilation. Adrenals: No adrenal nodule. Kidneys and ureters: No hydronephrosis. No renal cystic lesion which requires follow up. No solid mas s. Stomach, bowel and peritoneum: No bowel distension. No pathologic free fluid. Lymph nodes: No central or retroperitoneal adenopathy. Vessels: No infrarenal aortic aneurysm. PELVIS Reproductive organs: Remote hysterectomy. No significant adnexal masses. Ovaries appear present.. Bladder: No wall thickness, accounting for underdistention. Pelvic lymph nodes: No pelvic adenopathy by size criteria. Bones: No aggressive osseous abnormality. Other: No significant ventral or inguinal hernia. A tiny calcification in the left pelvis was previou sly present and is consistent with a calcified phlebolith and not a ureteral stone. IMPRESSION: No acute abdominal process. No renal stone or ureteral stone or hydronephrosis. Remote hysterectomy. Reviewed by: Harpreet Yates MD on 11/24/2023 1:48 PM PDT Approved by: Harpreet Yates MD on 11/24/2023 1:48 PM PDT Station ID: [id number]
[2023-11-24] MEDS: MAGNESIUM HYDROXIDE 2,400 MG/30 ML UDC PO STA (16:16)
[2023-11-24 16:27] VITALS: BP 154/100
== END 2023-11-24 16:27 | disposition home or self-care (01) ==
LOC: ED 11:28
DX: K59.00 Constipation, unspecified (principal); R10.12 Left upper quadrant pain; R11.0 Nausea; I10 Essential (primary) hypertension; E11.9 Type 2 diabetes mellitus without complications; Z79.4 Long term (current) use of insulin
CPT/HCPCS: 36415; 74176; 80053; 81001; 83690; 85025; 96374; 99284; A9270; 81003; 87086

== ENCOUNTER 2023-11-29 08:17 | Outpatient (CLI) | payer MEDICAID ==
[2023-11-29 12:18] LABS: CALCIUM 9.7 mg/dL (8.5-10.3); POTASSIUM 4.1 mmol/L (3.5-4.5)
[2023-11-29 12:25] LABS: ESTIMATED AVERAGE GLUCOSE 143 mg/dL (70-100); HEMOGLOBIN A1c% 6.6 % (4.27-6.07)
== END 2023-11-29 08:18 | disposition home or self-care (01) ==
LOC: LAB.N 08:17
PROVIDERS: ATTEND Physician Assistant Medical
DX: E11.9 Type 2 diabetes mellitus without complications (principal)
CPT/HCPCS: 36415; 80048; 83036

== ENCOUNTER 2023-11-29 12:09 | Outpatient (CLI) | payer MEDICAID | END 2023-11-29 23:59 | disposition critical access hospital (66) | LOC: EMS 12:09 | DX: J45.901 Unspecified asthma with (acute) exacerbation (principal); F41.9 Anxiety disorder, unspecified; R13.10 Dysphagia, unspecified; R00.0 Tachycardia, unspecified | CPT/HCPCS: A0425; A0427; A0999 ==

== ENCOUNTER 2023-11-29 12:31 | Emergency (ER) | payer MEDICAID ==
--- NOTE | 2023-11-29 12:47 | ED Physician Documentation ---
History of Present Illness - Stated complaint Stated Complaint: SOA - Chief complaint Chief Complaint: Resp - Additonal information Additional information: 48-year-old female presents emergency department via ambulance for shortness of breath. Since November 01 this is patient's fourth ER visit for ongoing shortness of breath, sore throat, fevers and chills. On 11/20 patient came in with a right hand laceration at that point in time patient was also complaining of ongoing sore throat so a dose of 10 mg dexamethasone was given to the patient. T a couple days later patient came back to the emergency department for midepigastric pain and concerns of abdominal pain after steroids and ibuprofen. She was found to have constipation on CT. Today she followed up with primary care provider for abdominal pain and ongoing abdominal discomfort at primary care provider appointment she is exhibiting signs of shortness of breath and airway restriction her PCP gave her an epinephrine shot EMS gave her a DuoNeb patient now reports that her shortness of breath is gotten significantly better she still reports an ongoing abdominal pain and discomfort and is tremulous but reports that airway restriction sensation has significantly improved. 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: Dilation and currettage, Tubal ligation, Hysterectomy - Present Medications Home Medications: Ambulatory Orders Medication Instructions Recorded Confirmed Albuterol [Ventolin Hfa] 2 puffs INH Q4H PRN 07/03/13 11/29/23 Albuterol Sulf [Ventolin Hfa 1 - 2 puffs INH Q4HR PRN #1 gm 11/29/23 Inhaler] Benzonatate [Tessalon] 100 mg PO TID PRN #30 cap 11/29/23 Empagliflozin [Jardiance] 1 tab PO DAILY 11/29/23 11/29/23 Ipratropium/Albuterol [Duoneb] 3 ml INH Q6H #15 ml 11/29/23 Nebulizer 1 each MC Q6HR #1 ea 11/29/23 - Allergies Allergies/Adverse Reactions: Allergies Allergy/AdvReac Type Severity Reaction Status Date / Time No Known Drug Allergies Allergy Verified 11/29/23 12:42 - Social History Does the pt smoke?: No Smoking Status: Never smoker Does the pt drink ETOH?: Yes Does the pt have substance abuse?: No - Immunizations Immunizations are current?: Yes - POLST Patient has POLST: No PD ED PE NORMAL - Vitals Vital signs reviewed: Yes - General General: Alert and oriented X 3, Well developed/nourished, Other (tremors) - HEENT HEENT: Other (right eye twitching) - Cardiac Cardiac: RRR, No murmur, No gallop, Strong equal pulses - Respiratory Respiratory: No respiratory distress, Other (Diminished bilaterally) - Abdomen Abdomen: Normal bowel sounds, Soft, Non tender, Non distended, No organomegaly - Back Back: No CVA TTP, No spinal TTP - Derm Derm: Normal color, Warm and dry, No rash - Neuro Neuro: Alert and oriented X 3, black ash worker 2-12 intact, No motor deficit, No sensory deficit, Normal speech - Psych Psych: Normal mood, Normal affect Results - Vitals Vitals: Vital Signs - 24 hr 11/29/23 11/29/23 11/29/23 12:39 14:42 14:44 Temperature 37.1 C Heart Rate 107 H 95 90 Respiratory 22 20 20 Rate Blood Pressure 158/89 H 126/74 O2 Saturation 99 100 11/29/23 15:23 Temperature Heart Rate 92 Respiratory 18 Rate Blood Pressure 139/74 H O2 Saturation 100 Oxygen O2 Source Room air - Labs Labs: Laboratory Tests 11/29/23 11/29/23 11/29/23 12:50 12:50 13:42 WBC 14.9 H RBC 5.11 Hgb 12.9 Hct 42.6 MCV 83.4 MCH 25.2 L MCHC 30.3 L RDW 14.5 Plt Count 372 MPV 10.4 Neut # (Auto) 9.7 H Lymph # (Auto) 4.4 H [place] # (Auto) 0.6 Eos # (Auto) 0.1 Baso # (Auto) 0.0 Absolute Nucleated RBC 0.00 Nucleated RBC % 0.0 Sodium 137 Potassium 3.5 Chloride 104 Carbon Dioxide 19 L Anion Gap 14.0 H BUN 11 Creatinine 0.9 Estimated GFR (MDRD) 81 L Glucose 149 H Calcium 9.6 Magnesium 1.9 Total Bilirubin 0.4 AST 11 ALT 10 Alkaline Phosphatase 53 Total Protein 7.7 Albumin 4.2 Globulin 3.5 Albumin/Globulin Ratio 1.2 Lipase 12 Nasal Adenovirus (PCR) NOT DETECTED Nasal B. parapertussis DNA (PCR) NOT DETECTED Nasal Coronavir 229E PCR NOT DETECTED Nasal Coronavir HKU1 PCR NOT DETECTED Nasal Coronavir NL63 PCR NOT DETECTED Nasal Coronavir OC43 PCR NOT DETECTED Nasal Enterovir/Rhinovir PCR NOT DETECTED Nasal Influenza B PCR NOT DETECTED Nasal Influenza A PCR NOT DETECTED Nasal Parainfluen 1 PCR NOT DETECTED Nasal Parainfluen 2 PCR NOT DETECTED Nasal Parainfluen 3 PCR NOT DETECTED Nasal Parainfluen 4 PCR NOT DETECTED Nasal RSV (PCR) NOT DETECTED Nasal B.pertussis DNA PCR NOT DETECTED Nasal C.pneumoniae (PCR) NOT DETECTED Thai Human Metapneumo PCR NOT DETECTED Nasal M.pneumoniae (PCR) NOT DETECTED Nasal SARS-CoV-2 (PCR) NOT DETECTED - Rads (name of study) Chest x-ray Relevant Findings:: Final report received, EMP independent interpretation of test, Other (No acute cardiopulmonary abnormalities) PD Medical Decision Making - ED course ED course: 48-year-old female presents emergency department for shortness of breath via ambulance. She received 1 dose of intramuscular epinephrine and route to the emergency department which made her quite tremulous by the time she arrived to the ER. Her shortness of breath had almost fully resolved. Labs are complete, she does have some mild leukocytosis, WBC 14.9 which could be related to stress, epinephrine, asthma exacerbation. Chest x-ray was complete which does not reveal any acute cardiopulmonary abnormalities. Respiratory panel is negative. CMP is fairly unremarkable. Patient was offered steroids for her asthma exacerbation but she kindly declined at this time because she did not like the way that the last steroids made her feel. For her abdominal discomfort I gave her a GI cocktail which fully resolved her epigastric pain. She was also given some Zofran for her nausea. She was also started on Tessalon Perles for her cough and given a repeat MDI of albuterol. Patient told to follow-up with her primary care provider in a week as symptoms have now almost entirely resolved, prescription of ipratropium inhalation as well as a nebulizer machine was sent to her preferred pharmacy as well as Tessalon Perles to help with her ongoing lingering symptoms of her respiratory infection. Patient is safe for discharge at this time return precautions given. Departure - Departure Disposition: 01 Home, Self Care Clinical Impression: Acute asthma Instructions: Asthma Dc Prescriptions: Albuterol Sulf [Ventolin Hfa Inhaler] 1 - 2 puffs INH Q4HR PRN #1 gm PRN Reason: Cough Nebulizer 1 each MC Q6HR #1 ea Ipratropium/Albuterol [Duoneb] 3 ml INH Q6H #15 ml Benzonatate [Tessalon] 100 mg PO TID PRN #30 cap PRN Reason: Cough Comments: Thank you for trusting us with your care. We completed a chest x-ray which did not reveal any acute abnormalities or findings at this time. I believe that you are still experiencing lingering cough from a respiratory infection. I have sent a prescription for a nebulizer machine as well as DuoNeb medication to [facility] as well as [facility] to help with cough suppressants and albuterol inhaler. Please follow-up with your primary care provider in a week for reevaluation make sure that your symptoms are improving. Please come back to the emergency department for started to experience any worsening shortness of breath, worsening cough, chest pain, shortness of breath. Forms: PCP List Discharge Date/Time: 11/29/23 15:23
[2023-11-29 13:02] LABS: BASOPHILS % (AUTO) 0.3 %; EOSINOPHILS # (AUTO) 0.1 10^3/uL (0.0-0.7); EOSINOPHILS % (AUTO) 0.7 %; HCT - HEMATOCRIT 42.6 % (37.0-47.0); HGB - HEMOGLOBIN 12.9 g/dL (12.0-16.0); LYMPHOCYTES # (AUTO) 4.4 10^3/uL (1.5-3.5); LYMPHOCYTES % (AUTO) 29.5 %; MEAN CORPUSCULAR HEMOGLOBIN 25.2 pg (27.0-31.0); MEAN CORPUSCULAR HGB CONC 30.3 g/dL (32.0-36.0); MEAN CORPUSCULAR VOLUME 83.4 fL (81.0-99.0); MEAN PLATELET VOLUME 10.4 fL (7.9-10.8); MONOCYTES # (AUTO) 0.6 10^3/uL (0.0-1.0); MONOCYTES % (AUTO) 4.1 %; NEUTROPHILS # (AUTO) 9.7 10^3/uL (1.5-6.6); NEUTROPHILS % (AUTO) 64.9 %; PLT - PLATELET COUNT 372 10^3/uL (130-450); RED BLOOD COUNT 5.11 10^6/uL (4.20-5.40); RED CELL DISTRIBUTION WIDTH 14.5 % (12.0-15.0); WHITE BLOOD COUNT 14.9 x10^3/uL (4.8-10.8)
[2023-11-29] MEDS: SODIUM CHLORIDE 0.9% 1,000 ML IV ONE (13:13)
[2023-11-29 13:16] LABS: ALBUMIN 4.2 g/dL (3.2-5.5); ALBUMIN/GLOBULIN RATIO 1.2 (1.0-2.2); BILIRUBIN,TOTAL 0.4 mg/dL (0.2-1.0); CALCIUM 9.6 mg/dL (8.5-10.3); CREATININE 0.9 mg/dL (0.6-1.3); MAGNESIUM 1.9 mg/dL (1.7-2.3); POTASSIUM 3.5 mmol/L (3.5-4.5); TOTAL PROTEIN 7.7 g/dL (6.4-8.9)
[2023-11-29] MEDS: BACITRACIN ZINC OINT 1 PACKET TOP STA (13:38)
--- NOTE | 2023-11-29 13:50 | XRAY Report ---
PROCEDURE: Chest 2V INDICATIONS: SOA TECHNIQUE: 2 views of the chest were acquired. COMPARISON: None. FINDINGS: Surgical changes and devices: None. Lungs and pleura: No pleural effusions or pneumothorax. Lungs are clear. Mediastinum: Mediastinal contours appear normal. Heart size is normal. Bones and chest wall: No suspicious bony lesions. Overlying soft tissues appear unremarkable. IMPRESSION: No acute cardiopulmonary process. Reviewed by: Sushant Neville MD on 11/29/2023 1:49 PM PDT Approved by: Sushant Neville MD on 11/29/2023 1:49 PM PDT Station ID: [id number]
[2023-11-29] MEDS: ALBUTEROL 1 PUFF INH STA (14:39)
[2023-11-29] MEDS: GI COCKTAIL 120 ML BOTTLE PO PRN (14:47)
[2023-11-29 14:51] VITALS: O2SAT 100
[2023-11-29] MEDS ORDERED: ONDANSETRON ODT 4 MG TABLET TL STA (15:13)
[2023-11-29 15:30] VITALS: BP 139/74
[2023-11-29 15:34] LABS: CORONAVIRUS 229E-RESP PCR NOT DETECTED; CORONAVIRUS HKU1-RESP PCR NOT DETECTED; CORONAVIRUS NL63-RESP PCR NOT DETECTED; CORONAVIRUS OC43-RESP PCR NOT DETECTED; HUMAN METAPNEUMOVIRUS NOT DETECTED; RHINOVIRUS/ENTEROVIRUS NOT DETECTED; SARS-CoV-2 -RESP PCR PANEL NOT DETECTED
[2023-11-29 15:35] LABS: B. PARAPERTUSSIS- RESP PCR PAN NOT DETECTED; B. PERTUSSIS- RESP PCR PANEL NOT DETECTED; C. PNEUMONIAE- RESP PCR PANEL NOT DETECTED; INFLUENZA A- RESP PCR PANEL NOT DETECTED; INFLUENZA B - RESP PCR PANEL NOT DETECTED; M. PNEUMONIAE- RESP PCR PANEL NOT DETECTED; PARAINFLUENZA VIRUS 1 NOT DETECTED; PARAINFLUENZA VIRUS 2 NOT DETECTED; PARAINFLUENZA VIRUS 3 NOT DETECTED; PARAINFLUENZA VIRUS 4 NOT DETECTED; RSV- RESP PCR PANEL NOT DETECTED
== END 2023-11-29 15:23 | disposition home or self-care (01) ==
LOC: EDUNIT# → ED 12:31
DX: J45.909 Unspecified asthma, uncomplicated (principal); R10.13 Epigastric pain; D72.829 Elevated white blood cell count, unspecified; I10 Essential (primary) hypertension; E11.9 Type 2 diabetes mellitus without complications; Z79.899 Other long term (current) drug therapy; Z79.84 Long term (current) use of oral hypoglycemic drugs
CPT/HCPCS: 36415; 71046; 80053; 83690; 83735; 85025; 87633; 94640; 99284; A9270

== ENCOUNTER 2024-03-06 08:00 | Outpatient (CLI) | payer MEDICAID ==
[2024-03-06 13:17] LABS: BILIRUBIN,URINE NEGATIVE (NEGATIVE); GLUCOSE, URINE (UA) >=1000 mg/dL (NEGATIVE); KETONES,URINE (UA) NEGATIVE (NEGATIVE); LEUKOCYTE ESTERASE, URINE NEGATIVE (NEGATIVE); NITRITE,URINE NEGATIVE (NEGATIVE); OCCULT BLOOD,URINE MODERATE (NEGATIVE); PH,URINE 5.5 PH (5.0-7.5); PROTEIN,URINE NEGATIVE (NEGATIVE); UROBILINOGEN,URINE 0.2 (NORMAL) E.U./dL (NORMAL)
[2024-03-06 13:19] LABS: CLARITY,URINE CLEAR (CLEAR)
[2024-03-06 13:33] LABS: BACTERIA,URINE Rare /HPF (None Seen); SQUAMOUS EPITHELIAL CELL,UR FEW Squamous (<= Few); WBC,URINE 0-3 /HPF (0-5)
== END 2024-03-06 23:59 | disposition home or self-care (01) ==
LOC: LAB.WCP 08:00
PROVIDERS: ATTEND Physician Assistant Medical
DX: R31.9 Hematuria, unspecified (principal)
CPT/HCPCS: 81001; 87086

== ENCOUNTER 2024-04-03 08:00 | Outpatient (CLI) | payer MEDICAID ==
[2024-04-04 13:06] LABS: BILIRUBIN,URINE NEGATIVE (NEGATIVE); CLARITY,URINE CLEAR (CLEAR); GLUCOSE, URINE (UA) >=1000 mg/dL (NEGATIVE); KETONES,URINE (UA) NEGATIVE (NEGATIVE); LEUKOCYTE ESTERASE, URINE NEGATIVE (NEGATIVE); NITRITE,URINE NEGATIVE (NEGATIVE); OCCULT BLOOD,URINE TRACE-INTA (NEGATIVE); PROTEIN,URINE NEGATIVE (NEGATIVE); UROBILINOGEN,URINE 0.2 (NORMAL) E.U./dL (NORMAL)
[2024-04-04 13:27] LABS: BACTERIA,URINE Few /HPF (None Seen); RBC,URINE 0-5 /HPF (0-5); SQUAMOUS EPITHELIAL CELL,UR FEW Squamous (<= Few); WBC,URINE 0-3 /HPF (0-5)
== END 2024-04-03 23:59 | disposition home or self-care (01) ==
LOC: LAB 08:00
PROVIDERS: ATTEND Urology
DX: R31.9 Hematuria, unspecified (principal)
CPT/HCPCS: 81001; 87086

== ENCOUNTER 2024-04-09 08:00 | Outpatient (CLI) | payer MEDICAID ==
[2024-04-09 23:45] LABS: BACTERIAL VAGINOSIS DNA POSITIVE (NEGATIVE); CANDIDA GLABRATA DNA NEGATIVE (NEGATIVE); CANDIDA GROUP DNA NEGATIVE (NEGATIVE); CANDIDA KRUSEI DNA NEGATIVE (NEGATIVE); TRICHOMONAS VAGINALIS DNA NEGATIVE (NEGATIVE)
[2024-04-10 00:38] LABS: CHLAMYDIA TRACHOMATIS DNA NEGATIVE (NEGATIVE); NEISSERIA GONORRHOEAE DNA NEGATIVE (NEGATIVE)
== END 2024-04-09 23:59 | disposition home or self-care (01) ==
LOC: LAB.N 08:00
PROVIDERS: ATTEND Physician Assistant Medical
DX: N76.0 Acute vaginitis (principal)
CPT/HCPCS: 81514; 87086; 87491; 87591; 87661; 87801

== ENCOUNTER 2024-04-10 19:25 | Emergency (ER) | payer MEDICAID ==
--- NOTE | 2024-04-10 19:44 | ED Physician Documentation ---
History of Present Illness - Stated complaint Stated Complaint: HIVES/ALLERGIC REACTION - Chief complaint Chief Complaint: General - History obtained from History obtained from: Patient - Additonal information Additional information: 48-year-old female presents with a pruritic urticaria. She states that she gets hives nearly every day and takes as needed cetirizine but today she started taking metronidazole for bacterial vaginosis, and about an hour later she got hives so much more pruritic and widespread than her typical daily hives. She has not had any facial swelling, no lip or oral swelling, no difficulty breathing, no nausea or vomiting. She just itches all over. She has not attempted any medication for this. 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 : None HEENT: Chronic vision loss Psych: Panic attacks, Post traumatic stress disorder, Claustrophobia Musculoskeletal: None Derm: Eczema - Past Surgical History Past Surgical History: No /W[employer] DIRECTOR: Dilation and currettage, Tubal ligation, Hysterectomy - Present Medications Home Medications: Ambulatory Orders Medication Instructions Recorded Confirmed Albuterol [Ventolin Hfa] 2 puffs INH Q4H PRN 07/03/13 11/29/23 Albuterol Sulf [Ventolin Hfa 1 - 2 puffs INH Q4HR PRN #1 gm 11/29/23 Inhaler] Benzonatate [Tessalon] 100 mg PO TID PRN #30 cap 11/29/23 Empagliflozin [Jardiance] 1 tab PO DAILY 11/29/23 11/29/23 Ipratropium/Albuterol [Duoneb] 3 ml INH Q6H #15 ml 11/29/23 Nebulizer 1 each MC Q6HR #1 ea 11/29/23 EPINEPHrine [Epinephrine 1 mg IJ PRN PRN #1 kit 04/10/24 Professional Kit] Famotidine 40 mg PO DAILY #10 tablet 04/10/24 hydrOXYzine HCL [Hydroxyzine HCl] 25 mg PO Q6HR PRN #30 tablet 04/10/24 - Allergies Allergies/Adverse Reactions: Allergies Allergy/AdvReac Type Severity Reaction Status Date / Time No Known Drug Allergies Allergy Verified 04/10/24 19:34 - Social History Does the pt smoke?: No Smoking Status: Never smoker Does the pt drink ETOH?: Yes Does the pt have substance abuse?: No - Immunizations Immunizations are current?: Yes - POLST Patient has POLST: No PD ED PE NORMAL - Vitals Vital signs reviewed: Yes - General General: Alert and oriented X 3, No acute distress, Well developed/nourished - HEENT HEENT: Atraumatic, Moist mucous membranes, Pharynx benign, Other (No tongue or lip swelling) - Neck Neck: Supple, no meningeal sign - Cardiac Cardiac: RRR, No murmur - Respiratory Respiratory: No respiratory distress, Clear bilaterally - Derm Derm: Normal color, Warm and dry, Other (Urticaria on the chest, upper arms, abdomen, scalp) - Neuro Neuro: Alert and oriented X 3 Eye Opening: Spontaneous Motor: Obeys Commands Verbal: Oriented GCS Score: 15 - Psych Psych: Normal mood, Normal affect Results - Vitals Vitals: Vital Signs - 24 hr 04/10/24 04/10/24 19:28 20:00 Temperature 36.6 C Heart Rate 82 87 Respiratory 17 Rate Blood Pressure 156/93 H 122/80 O2 Saturation 96 100 Oxygen O2 Source Room air PD Medical Decision Making - ED course Complexity details: reviewed results, re-evaluated patient, considered differential, d/w patient ED course: 48-year-old female presented with pruritic urticaria on her scalp, chest, neck, essentially all throughout her body, no angioedema or oropharyngeal swelling, no difficulty breathing. This all occurred after taking Flagyl the patient does have a history of frequent urticaria. After discussion with patient, recommended treatment with Benadryl as the cetirizine she was taking was not sufficient, and she was given famotidine here. She has had improvement in her symptoms and I do think stable for discharge home. There is no sign of angioedema or anaphylaxis on her physical exam here. Recommended continuing daily cetirizine and as needed Hydroxyzine or Benadryl and famotidine for the next few days until symptoms resolve. I prescribed an EpiPen to have on hand as needed and recommend that patient be seen by an verse writer given her frequent bouts of urticaria. I advised that her primary doctor can place a referral. I discussed return precautions if new concerns or signs of anaphylaxis. Departure - Departure Disposition: 01 Home, Self Care Clinical Impression: Urticaria Condition: Good Instructions: ED Urticaria Prescriptions: hydrOXYzine HCL [Hydroxyzine HCl] 25 mg PO Q6HR PRN #30 tablet PRN Reason: hives/allergies/itching EPINEPHrine [Epinephrine Professional Kit] 1 mg IJ PRN PRN #1 kit PRN Reason: Anaphylaxis Famotidine 40 mg PO DAILY #10 tablet Comments: Lorri, Your hives today are likely due to the new medication that you are taking. I recommend that you stop taking this medication, continue your daily cetirizine, and add that as needed hydroxyzine and daily famotidine to help reduce histamine response. I have also prescribed an EpiPen for you to carry if you ever have a more serious allergic reaction called anaphylaxis. You do not need to use the EpiPen for hives alone but if you develop difficulty breathing, tongue or facial swelling, persistent vomiting, then you may use this medication and come into the ER. Because you have frequent bouts of hives, I do recommend that you have allergy testing done, your primary doctor can you refer you to an verse writer. Forms: PCP List
[2024-04-10] MEDS: diphenhydrAMINE INJ 50 MG/ML VIAL IM STA (19:54)
[2024-04-10] MEDS: FAMOTIDINE 20 MG TABLET PO STA (19:55)
[2024-04-10 20:15] VITALS: O2SAT 100
[2024-04-10 20:35] VITALS: BP 122/68
== END 2024-04-10 20:28 | disposition home or self-care (01) ==
LOC: ED 19:25
DX: L50.9 Urticaria, unspecified (principal); L29.8 Other pruritus; I10 Essential (primary) hypertension; J45.909 Unspecified asthma, uncomplicated; E11.9 Type 2 diabetes mellitus without complications; F43.10 Post-traumatic stress disorder, unspecified; K21.9 Gastro-esophageal reflux disease without esophagitis
CPT/HCPCS: 96372; 99283; A9270; J1200

== ENCOUNTER 2024-04-30 08:02 | Outpatient (CLI) | payer MEDICAID ==
[2024-05-01 05:15] LABS: HIV SCREEN 4TH GENERATION Non Reactive (Non Reactive); RPR Non Reactive (Non Reactive)
[2024-05-01 06:12] LABS: HSV 2 IGG TYPE SPEC 6.99 index (0.00-0.90)
== END 2024-04-30 08:03 | disposition home or self-care (01) ==
LOC: LAB.N 08:02
PROVIDERS: ATTEND Physician Assistant Medical
DX: Z20.2 Contact with and (suspected) exposure to infections with a predominantly sexual mode of transmission (principal)
CPT/HCPCS: 36415; 86592; 86695; 86696; 87389